=== PATIENT | male | born 1975 | race Caucasian/White ===

== ENCOUNTER 2018-07-20 07:33 | Emergency (ER) | payer MEDICARE, MEDICAID ==
[~2018-07-20] VITALS: Ht 182.9 cm; Wt 90.9 kg
[~2018-07-20 07:33] MED LIST: CLOT15CR5 TOP; COMP-18; DYR50C PO; FURO-150 PO; LACT10SO6 PO; MECL-111 PO; NORCO10T PO; OMEP20CA10 PO; PANT40TA39 PO; POTA10TA36 PO
[2018-07-20 07:36] VITALS: BP 129/72
--- NOTE | 2018-07-20 07:55 | NUR ---
dr. bird at bedside.
== END 2018-07-20 08:05 | disposition home or self-care (01) ==
LOC: ER 07:34
DX: H53.8 Other visual disturbances (principal); F12.90 Cannabis use, unspecified, uncomplicated; G89.29 Other chronic pain; Z98.890 Other specified postprocedural states; Z79.899 Other long term (current) drug therapy
CPT/HCPCS: 99284

== ENCOUNTER 2018-08-05 06:26 | Inpatient (IN) | payer MEDICARE, MEDICAID ==
[~2018-08-05] VITALS: Ht 182.9 cm; Wt 84.2 kg
[2018-08-05] VITALS (21 sets, daily range): BP systolic 100–136; BP diastolic 56–90
[2018-08-05] MEDS ORDERED: LIDOcaine Viscous 15ml cup PO ONE (06:40)
[2018-08-05] MEDS ORDERED: mag hydrox/Alum hydrox/simeth 30ml oral suspension PO ONE (06:40)
--- NOTE | 2018-08-05 07:05 | NUR ---
called ab to see if they were going to draw pt. stated they will be here shortly. will continue to monitor. Addendum: 08/05/18 at 0705 by [email or web address] stacie bansal
[2018-08-05 07:29] LABS: BASOPHILS % (AUTO) 1.3 % (0-1); EOSINOPHILS % (AUTO) 0.6 % (0-6); HEMATOCRIT 29.3 % (42.0-52.0); HEMOGLOBIN 9.3 g/dl (14.0-17.9); LYMPHOCYTES # (AUTO) 0.1 X10'3 (1.1-4.8); LYMPHOCYTES % (AUTO) 6.8 % (21-51); MEAN CORPUSCULAR HEMOGLOBIN 27.1 PG (27.0-31.0); MEAN CORPUSCULAR HGB CONC 31.7 g/dL (33.0-36.5); MEAN CORPUSCULAR VOLUME 85.3 FL (78-98); MEAN PLATELET VOLUME 8.6 FL (7.4-10.4); MONOCYTES # (AUTO) 0.2 X10'3 (0-0.9); MONOCYTES % (AUTO) 14.4 % (2-12); NEUTROPHILS # (AUTO) 0.9 X10'3 (1.8-7.7); NEUTROPHILS % (AUTO) 76.9 % (42-75); PLATELET COUNT 52 X10'3 (140-440); RED BLOOD COUNT 3.43 X10'6 (4.70-6.10); RED CELL DISTRIBUTION WIDTH 20.2 % (11.5-14.5); WHITE BLOOD COUNT 1.2 X10'3 (4.5-11.0)
[2018-08-05 07:34] LABS: CLARITY,URINE CLOUDY (Clear); COLOR,URINE AMBER (Yellow); GLUCOSE, URINE 100 mg/dl (Neg); KETONES,URINE 15 mg/dl (Neg); LEUKOCYTE ESTERASE ,URINE TRACE (Neg); NITRITES, URINE POSITIVE (Neg); OCCULT BLOOD,URINE TRACE-INTACT (Neg); PROTEIN,URINE 100 mg/dl (Neg)
[2018-08-05 07:40] LABS: HYALINE CASTS >30 /LPF (NEGATIVE); UA COLLECTION TYPE CLN CATCH MIDSTREAM
[2018-08-05 07:41] LABS: BACTERIA,URINE 2+ /HPF (Neg)
[2018-08-05 07:42] LABS: MUCUS STRANDS MODERATE /LPF (Neg); RBC,URINE 0-2 /HPF (0-2); SQUAMOUS EPITHELIAL CELL,UR FEW /LPF (FEW)
[2018-08-05 07:43] LABS: ALANINE AMINOTRANSFERASE 27 U/L (12-78); ALBUMIN 2.4 G/DL (3.4-5.0); ALKALINE PHOSPHATASE 112 IU/L (46-116); ANION GAP 10 (8-16); ASPARTATE AMINO TRANSFERASE 57 U/L (10-37); BILIRUBIN,TOTAL 3.7 MG/DL (0.1-1.0); BLOOD UREA NITROGEN 14 MG/DL (7-18); BUN/CREATININE RATIO 11.7 (5.4-32.0); CHLORIDE 104 MMOL/L (99-107); GLUCOSE 100 MG/DL (70-104); LIPASE 147 U/L (73-393); POTASSIUM 3.7 MMOL/L (3.5-5.1); SODIUM 136 MMOL/L (135-145); TOTAL CARBON DIOXIDE 21.8 MMOL/L (24-32); eGFR 66 ML/MIN
[2018-08-05 07:45] LABS: ALBUMIN/GLOBULIN RATIO 0.6 (1.1-1.5); TOTAL PROTEIN 6.2 G/DL (6.4-8.2)
[2018-08-05] MEDS ORDERED: normal saline 1000ML IV soln IVB ONE ×2 (07:50→08:50)
[2018-08-05] MEDS ORDERED: CefTRIAXone 2gm/D5W 50ml 50 ML IV ONE (07:50)
[2018-08-05] MEDS ORDERED: ketorolac trometh. 30mg/ml inj. IV ONE (07:50)
[2018-08-05] MEDS ORDERED: pantoprazole 40 MG vial IV SCH ×2 (08:00→14:21)
[2018-08-05] MEDS ORDERED: folic acid inj. 2 MG, thiamine inj. 100 MG, MVI, adult No.4 with vit. K 10 ML in dextro... IV SCH ×4 (08:00)
[2018-08-05] MEDS ORDERED: piperacillin/tazo 3.375gm/50ml 50 ML IV ONE (08:50)
[2018-08-05] MEDS ORDERED: ondansetron/PF 4mg/2ml inj IV ONE (08:50)
[2018-08-05 09:15] LABS: INR 1.4 INR
[2018-08-05] MEDS: morphine 4 MG/ML inj SYRINge IV PRN ×2 (09:20→10:15)
[2018-08-05 10:49] LABS: PLATELET ESTIMATE DECREASED; TOTAL CELLS COUNTED 100
[2018-08-05 10:50] LABS: ANISOCYTOSIS 3+
[2018-08-05 10:53] LABS: SMUDGE CELLS FEW
[2018-08-05 10:54] LABS: POLYCHROMASIA 1+
[2018-08-05 10:55] LABS: HYPOCHROMASIA 1+; ROULEAUX 1+
[2018-08-05] MEDS ORDERED: clindamycin phosphate 150mg/ml inj. ONE ×2 (11:02→13:31)
[2018-08-05] MEDS ORDERED: gentamicin 40 MG/1 ML inj ONE ×2 (11:02→13:31)
[2018-08-05] MEDS ORDERED: haloperidol 5mg tablet PO PRN (12:10)
[2018-08-05] MEDS ORDERED: magnesium 4gm in 100ml NS 100 ML IV PRN (12:10)
[2018-08-05] MEDS ORDERED: sodium phosphate inj. 30 MMOL in dextrose 5%-water 250 ML IV PRN (12:10)
[2018-08-05] MEDS ORDERED: haloperidol lactate 5mg/ml inj IM PRN (12:10)
[2018-08-05] MEDS ORDERED: Neutra Phos packet PO PRN (12:10)
[2018-08-05] MEDS ORDERED: morphine 4 MG/ML inj SYRINge IV PRN ×3 (12:10→14:45)
[2018-08-05] MEDS ORDERED: LORazepam 1 MG tablet PO PRN (12:10)
[2018-08-05] MEDS ORDERED: potassium Cl 20 mEq SR tablet PO PRN (12:10)
[2018-08-05] MEDS ORDERED: dextrose 50%-water 50ml dispensing syringe IV PRN (12:10)
[2018-08-05] MEDS ORDERED: magnesium 2GM in 50ml NS 50 ML IV PRN (12:10)
[2018-08-05] MEDS ORDERED: sodium phosphate inj. 15 MMOL in dextrose 5%-water 150 ML IV PRN (12:10)
[2018-08-05] MEDS ORDERED: ondansetron/PF 4mg/2ml inj IV PRN ×2 (12:10→14:45)
[2018-08-05] MEDS ORDERED: magnesium Cl slow-release 64mg tablet PO PRN (12:10)
[2018-08-05] MEDS ORDERED: LORazepam 2 mg/ml vial IV PRN (12:10)
[2018-08-05] MEDS ORDERED: acetaminophen 325mg tablet PO PRN (12:10)
[2018-08-05] MEDS ORDERED: RIFA550T PO (12:39)
[2018-08-05] MEDS ORDERED: POTA10TA15 PO (12:39)
[2018-08-05] MEDS ORDERED: RANI150T8 PO (12:39)
[2018-08-05] MEDS ORDERED: LACT10SO6 PO (12:43)
[2018-08-05] MEDS ORDERED: sevoflurane 250ml liquid IH ONE (14:11)
[2018-08-05] MEDS ORDERED: midazolam 2 mg/2 ml injection ONE (14:13)
[2018-08-05] MEDS ORDERED: fentaNYL /PF 50mcg/ml 5ml ampule ONE (14:13)
--- NOTE | 2018-08-05 14:13 | NUR ---
Pt to OR with Anesthesiologist, ORTHODONTIST [employer] OWNER x2 and Surgeon. Pt's family called and updated, as the patient requested. Pt stable at this time, RA with high sats, SR to low ST, stable bp, afebrile. Pt received one pack of platelets with no s/s of reaction. Pt neurologically intact; morphine 4m given x1. Addendum: 08/05/18 at 1756 by Eleni Cardenas RN Chlorahexadine bath given (prior ones done in ED.)
[2018-08-05] MEDS ORDERED: cefotetan 2gm/isosm dext IVPB 50 ML IV ONE (14:17)
[2018-08-05] MEDS: K, MAG and/or Phos replacement - Verify level? MC SCH (14:17)
[2018-08-05] MEDS: normal saline 1000ml 1,000 ML IV SCH (14:17)
[2018-08-05] MEDS ORDERED: ringers solution, lacted 1,000 ML IV SCH (14:45)
[2018-08-05] MEDS ORDERED: proCHLORperazine 10 MG/2 ml inj IV PRN (14:45)
[2018-08-05] MEDS ORDERED: meperidine/PF 25mg/ml syringe IV PRN ×2 (14:45)
[2018-08-05] MEDS ORDERED: sugammadex 200mg/2ml injection IV ONE (15:47)
[2018-08-05] MEDS ORDERED: rocuronium 10mg/ml inj IV ONE ×2 (15:56)
[2018-08-05] MEDS ORDERED: propofol inj 20 ML IV ONE (15:56)
--- NOTE | 2018-08-05 15:57 | NUR ---
Received from OR via BED, accompanied by Anesthesiologist DR WHITMAN and report given by Anesthesiologist. PT PAINFUL, WILLIS'S, LARGE GAUZE DRSG COVERING ABDOMEN CDI, FLOWER W/S/S DRAINAGE, MCCLURE CATHETER W/DARK YELLOW URINE TO GRAVITY DRAINAGE. 4 MG MORPHINE GIVEN FOR PAIN, CXR OBTAINED, DR WHITMAN HERE TO SEE X RAY, OK TO USE LINE. Addendum: 08/05/18 at 1653 by Meri Mendoza RN Amended: Links added.
[2018-08-05] MEDS: meperidine/PF 25mg/ml syringe IV PRN ×2 (16:29→17:08)
--- NOTE | 2018-08-05 17:27 | NUR ---
Report called to receiving nurse. Transferred via BED ON AND , NO Belongings, RECEIVING RN AT BEDSIDE TO RECEIVE PT, PT PAIN IMPROVED AFTER DEMEROL 25 MG GIVEN IN PACU. Special Issues communicated to receiving nurse. ERMIAS HANEY. Addendum: 08/05/18 at 1741 by Meri Mendoza RN Amended: Links added.
[2018-08-05] MEDS: piperacillin/tazo 3.375gm/50ml 50 ML IV SCH (17:32)
[2018-08-05] MEDS: vancomycin inj 1,250 MG in normal saline 250ml IV soln 250 ML IV SCH (17:32)
[2018-08-05] MEDS: pantoprazole 40MG/NS 100ML BAG 100 ML IV SCH ×2 (17:32→21:23)
--- NOTE | 2018-08-05 17:56 | NUR ---
Pt arrives in ICU from recovery. Pt very lethargic, snoring, wakes with verbal stimulation, (pt received demerol x2 and morphine in recovery,) sats 93 on 2L NC. Pt in ST (116) with a stable bp. Afebrile at this time. Vanc and zosyn started. Protonix gtt started. All gtts via new RIJ. Pt has a daley with minimal, dark urine output.
--- NOTE | 2018-08-05 18:30 | NUR ---
Patient in room ICU 2045. I have received report from Eleni HANEY and had the opportunity to ask questions and assume patient care.
[2018-08-05] MEDS ORDERED: albumin (Human) 5% 250ml 250 ML IV ONE ×2 (18:35)
--- NOTE | 2018-08-05 19:30 | NUR ---
Pt is awake, alert, and oriented. He does doze off easily, but also wakes up easily. HR is currently ST @ 114, BP 112/64, RR 12, O2 Sats 93% on 2L NC. Pt is complaining of 10/10 pain on abdominal incision. Will look into provided pain medication. Pt asked for ice chips, which were given as ordered by Dr. Draper. Pt's right foot is CHARLENE wrapped and splinted for a break he received prior to coming into the hospital. Pt is jaundiced and has some occasional bruising, with a cut to his forehead.
[2018-08-05] MEDS: docusate sod 100mg capsule PO SCH (20:00)
[2018-08-05] MEDS: HYDROmorphone 1 mg/ml syringe IV PRN (20:54)
[2018-08-06] VITALS (24 sets, daily range): BP systolic 95–156; BP diastolic 42–85
[2018-08-06] MEDS: vancomycin inj 1,250 MG in normal saline 250ml IV soln 250 ML IV SCH ×3 (00:13→16:11)
[2018-08-06] MEDS: normal saline 1000ml 1,000 ML IV SCH ×2 (01:30→15:40)
[2018-08-06] MEDS: piperacillin/tazo 3.375gm/50ml 50 ML IV SCH ×3 (02:29→15:34)
[2018-08-06] MEDS: pantoprazole 40MG/NS 100ML BAG 100 ML IV SCH ×5 (02:31→21:49)
[2018-08-06 03:23] LABS: BASOPHILS % (AUTO) 0.5 % (0-1); HEMATOCRIT 25.2 % (42.0-52.0); HEMOGLOBIN 8.1 g/dl (14.0-17.9); LYMPHOCYTES # (AUTO) 0.2 X10'3 (1.1-4.8); LYMPHOCYTES % (AUTO) 5.3 % (21-51); MEAN CORPUSCULAR HEMOGLOBIN 27.5 PG (27.0-31.0); MEAN CORPUSCULAR HGB CONC 32.1 g/dL (33.0-36.5); MEAN CORPUSCULAR VOLUME 85.8 FL (78-98); MEAN PLATELET VOLUME 8.4 FL (7.4-10.4); MONOCYTES # (AUTO) 0.5 X10'3 (0-0.9); MONOCYTES % (AUTO) 13.4 % (2-12); NEUTROPHILS % (AUTO) 79.8 % (42-75); PLATELET COUNT 53 X10'3 (140-440); RED BLOOD COUNT 2.94 X10'6 (4.70-6.10); RED CELL DISTRIBUTION WIDTH 20.4 % (11.5-14.5); WHITE BLOOD COUNT 3.8 X10'3 (4.5-11.0)
[2018-08-06 03:29] LABS: INR 1.8 INR; PARTIAL THROMBOPLASTIN TIME 34 SECONDS (22-32)
[2018-08-06 03:40] LABS: ALANINE AMINOTRANSFERASE 20 U/L (12-78); ALBUMIN 2.5 G/DL (3.4-5.0); ALBUMIN/GLOBULIN RATIO 0.8 (1.1-1.5); ALKALINE PHOSPHATASE 69 IU/L (46-116); ANION GAP 11 (8-16); ASPARTATE AMINO TRANSFERASE 40 U/L (10-37); BILIRUBIN,TOTAL 3.2 MG/DL (0.1-1.0); BLOOD UREA NITROGEN 21 MG/DL (7-18); CALCIUM 7.4 MG/DL (8.5-10.1); CHLORIDE 106 MMOL/L (99-107); CREATININE 1.05 MG/DL (0.60-1.10); GLUCOSE 88 MG/DL (70-104); MAGNESIUM 1.3 MG/DL (1.5-2.4); PHOSPHORUS 4.3 MG/DL (2.3-4.5); POTASSIUM 4.3 MMOL/L (3.5-5.1); SODIUM 138 MMOL/L (135-145); TOTAL CARBON DIOXIDE 20.7 MMOL/L (24-32); TOTAL PROTEIN 5.7 G/DL (6.4-8.2); eGFR 77 ML/MIN
[2018-08-06 03:59] LABS: LARGE PLATELETS FEW; PLATELET ESTIMATE DECREASED
[2018-08-06 04:00] LABS: ANISOCYTOSIS 3+; POLYCHROMASIA FEW
[2018-08-06] MEDS: HYDROmorphone 1 mg/ml syringe IV PRN ×2 (05:17→11:55)
[2018-08-06] MEDS: docusate sod 100mg capsule PO SCH ×2 (08:00→20:00)
[2018-08-06] MEDS: K, MAG and/or Phos replacement - Verify level? MC SCH (08:00)
[2018-08-06] MEDS: folic acid inj. 2 MG, thiamine inj. 100 MG, MVI, adult No.4 with vit. K 10 ML in dextro... IV SCH ×4 (08:08)
[2018-08-06] MEDS: rifaximin 550mg tablet PO SCH ×2 (11:00→20:00)
[2018-08-06] MEDS: lactulose 20gm/30ml cup PO SCH (11:00)
--- NOTE | 2018-08-06 11:30 | NUR ---
Pt sitting up in chair john well "states abd pain feels better with splint around abd and being up " Pt with assist did IS and flutter valve Weak cough noted 02 3l/min via n/c Lungs clear decreased in bases Abd drsg dry and intact FLOWER drain patent daley with dk marissa to brown color urine splint to left foot John sips of ICE but c/o wants more Repeat he wants to see surg Dr. pulido has not been by Addendum: 08/06/18 at 1353 by Soledad Osborn RN splint on right foot
--- NOTE | 2018-08-06 11:32 | NUR ---
Malnutrition consult re: "patient is homeless, lost 20 lbs in last month." Patient presented with acute abdominal pain and viscus perforation. Per H&P pain was worse with eating. He is currently NPO and s/p exploratory lap and repair of duodenal ulcer on 08/05/18. Current EtOH, h/o cirrhosis with ascites and variceal bleed. Weight expected to fluctuate with ascites d/t fluid retention. Per documented weight history patient's stated weight on 07/20/18 was 189 lbs, current [facility] states 207 lbs, recently wt increased by 18 lbs. Pt does have some mild LLE 2+ edema. Weight history shows UBW between 80 and 90 kg. No current PO intake to assess. Will continue to follow and monitor for diet advancement, PO intake, and weight. Recommend: 1. Advance diet as medically indicated to low sodium 2. Monitor need for ONS when diet is advanced 3. Wt per rx Addendum: 08/06/18 at [address] Amended: Links added.
--- NOTE | 2018-08-06 15:08 | NUR ---
Patient in room ICU 2045. I have received report from MEDINA Krueger and had the opportunity to ask questions and assume patient care.
[2018-08-06] MEDS ORDERED: VANCOMYCIN LEVEL IV ONE (15:30)
[2018-08-06] MEDS: HYDROmorphone/NS 1 mg/ml CADD 50 ML IV SCH ×4 (16:58→23:00)
--- NOTE | 2018-08-06 17:47 | NUR ---
Dr. Kaur arrived on unit and assessed pt, updated on pt condition. Diluadid ED MANAGER order received and given. educated pt on PCU usage, questions answered. Packing removed on abd incision, dry gauze and ABD pad applied. incision with stables c/d/i. no drainage noted. FLOWER drain to right abd with serous drainage. pt is NPO except ice and popsicles. pt tolerated well without nausea or vomiting.
--- NOTE | 2018-08-06 18:20 | NUR ---
Patient in room ICU 2045. I have received report and had the opportunity to ask questions and assume patient care.
--- NOTE | 2018-08-06 18:22 | NUR ---
Problems reprioritized. Patient report given, questions answered & plan of care reviewed with MEDINA Klein.
[2018-08-07] VITALS (18 sets, daily range): BP systolic 98–135; BP diastolic 29–88
[2018-08-07] MEDS: piperacillin/tazo 3.375gm/50ml 50 ML IV SCH ×3 (00:39→16:35)
[2018-08-07] MEDS: vancomycin inj 1,250 MG in normal saline 250ml IV soln 250 ML IV SCH (00:39)
[2018-08-07] MEDS: HYDROmorphone/NS 1 mg/ml CADD 50 ML IV SCH ×12 (01:00→22:41)
[2018-08-07] MEDS: pantoprazole 40MG/NS 100ML BAG 100 ML IV SCH ×5 (01:15→21:20)
[2018-08-07 02:30] LABS: BASOPHILS % (AUTO) 0.9 % (0-1); HEMOGLOBIN 7.5 g/dl (14.0-17.9); LYMPHOCYTES # (AUTO) 0.2 X10'3 (1.1-4.8); LYMPHOCYTES % (AUTO) 6.9 % (21-51); MEAN CORPUSCULAR HEMOGLOBIN 27.5 PG (27.0-31.0); MEAN CORPUSCULAR HGB CONC 32.5 g/dL (33.0-36.5); MEAN CORPUSCULAR VOLUME 84.6 FL (78-98); MEAN PLATELET VOLUME 7.9 FL (7.4-10.4); MONOCYTES # (AUTO) 0.4 X10'3 (0-0.9); MONOCYTES % (AUTO) 17.3 % (2-12); NEUTROPHILS # (AUTO) 1.8 X10'3 (1.8-7.7); NEUTROPHILS % (AUTO) 73.9 % (42-75); RED BLOOD COUNT 2.72 X10'6 (4.70-6.10); WHITE BLOOD COUNT 2.4 X10'3 (4.5-11.0)
[2018-08-07 02:44] LABS: ALANINE AMINOTRANSFERASE 16 U/L (12-78); ALBUMIN/GLOBULIN RATIO 0.6 (1.1-1.5); ALKALINE PHOSPHATASE 61 IU/L (46-116); ANION GAP 7 (8-16); ASPARTATE AMINO TRANSFERASE 33 U/L (10-37); BILIRUBIN,TOTAL 2.8 MG/DL (0.1-1.0); BLOOD UREA NITROGEN 15 MG/DL (7-18); BUN/CREATININE RATIO 21.1 (5.4-32.0); CALCIUM 7.6 MG/DL (8.5-10.1); CHLORIDE 104 MMOL/L (99-107); CREATININE 0.71 MG/DL (0.60-1.10); GLUCOSE 106 MG/DL (70-104); INR 1.6 INR; MAGNESIUM 1.9 MG/DL (1.5-2.4); PARTIAL THROMBOPLASTIN TIME 39 SECONDS (22-32); PHOSPHORUS 1.5 MG/DL (2.3-4.5); POTASSIUM 3.4 MMOL/L (3.5-5.1); SODIUM 135 MMOL/L (135-145); TOTAL CARBON DIOXIDE 23.6 MMOL/L (24-32); TOTAL PROTEIN 5.2 G/DL (6.4-8.2); eGFR > 90 ML/MIN
[2018-08-07 02:55] LABS: PLATELET COUNT 45 X10'3 (140-440)
[2018-08-07] MEDS ORDERED: potassium Cl 40MEQ/250ML bag 250 ML IV PRN ×2 (03:35)
[2018-08-07] MEDS: normal saline 1000ml 1,000 ML IV SCH ×3 (04:10→20:06)
--- NOTE | 2018-08-07 04:30 | NUR ---
pt refused to have his dressing changed x 3. pt stated he is "comfortable an wants to sleep". pt educated on the importance of dressing changes. dressing is dry and intact, will continue to monitor.
--- NOTE | 2018-08-07 06:15 | NUR ---
Patient in room ICU 2045. I have received report from MEDINA Klein and had the opportunity to ask questions and assume patient care.
[2018-08-07 06:22] LABS: ANISOCYTOSIS 2+; MICROCYTOSIS 1+; PLATELET ESTIMATE DECREASED; TOTAL CELLS COUNTED 100
[2018-08-07 06:23] LABS: HYPOCHROMASIA 1+; POLYCHROMASIA FEW; SCHISTOCYTES FEW; TARGET CELLS FEW
[2018-08-07] MEDS: rifaximin 550mg tablet PO SCH ×2 (08:00→20:00)
[2018-08-07] MEDS: lactulose 20gm/30ml cup PO SCH (08:00)
[2018-08-07] MEDS: docusate sod 100mg capsule PO SCH ×2 (08:00→20:00)
[2018-08-07] MEDS: K, MAG and/or Phos replacement - Verify level? MC SCH (08:00)
[2018-08-07] MEDS: folic acid inj. 2 MG, thiamine inj. 100 MG, MVI, adult No.4 with vit. K 10 ML in dextro... IV SCH ×4 (08:04)
[2018-08-07] MEDS ORDERED: metoclopramide 5 mg/ml inj IV PRN (12:35)
[2018-08-07] MEDS: methylnaltrexone br 12mg/0.6ml inj***SubQ only SQ SCH (14:45)
--- NOTE | 2018-08-07 16:31 | NUR ---
Called report to MEDINA Arriaga. Pt transferred to surgical unit rm 346A via wheelchair with all belongings. Accompanied by RN and PCT. Grubbs removed prior to transfer. PIV attempted x3 by 3 different RNs without success. Central line left in. Pt alert, oriented and stable for transfer. Ambulated to new bed with assistance.
--- NOTE | 2018-08-07 16:39 | NUR ---
RECD PT FROM ICU, PT ALERT AND ORIENTED. VSS. PT SETTLED IN BED, ALL BELONGINGS AT BEDSIDE.
[2018-08-07] MEDS ORDERED: POTASSIUM 40MEQ/500ML NS ***PERIPHERAL LINE REPLACE IV PRN (17:00)
--- NOTE | 2018-08-07 17:17 | NUR ---
AGREE WITH PHYSICAL ASSESSMENT DONE IN ICU EXCEPT FOR DOCUMENTED CHANGES MADE Addendum: 08/07/18 at 1718 by Yahaira Caputo RN Amended: Links added.
--- NOTE | 2018-08-07 18:16 | NUR ---
Problems reprioritized. Patient report given, questions answered & plan of care reviewed with OZZIE HANEY.
--- NOTE | 2018-08-07 18:18 | NUR ---
Problems reprioritized. Patient report given, questions answered & plan of care reviewed with ZAID HANEY.
--- NOTE | 2018-08-07 18:36 | NUR ---
Patient in room [facility] 346. I have received report from Corina HANEY and had the opportunity to ask questions and assume patient care.
[2018-08-07] MEDS: ondansetron/PF 4mg/2ml inj IV PRN (20:14)
[2018-08-07] MEDS: magnesium hydroxide 30ml (MOM) UD suspension PO PRN (22:33)
[2018-08-08] VITALS: BP 111/72
[2018-08-08] MEDS: piperacillin/tazo 3.375gm/50ml 50 ML IV SCH ×3 (00:35→16:29)
[2018-08-08] MEDS: HYDROmorphone/NS 1 mg/ml CADD 50 ML IV SCH ×12 (00:39→23:00)
[2018-08-08] MEDS: pantoprazole 40MG/NS 100ML BAG 100 ML IV SCH ×5 (01:45→21:26)
--- NOTE | 2018-08-08 03:34 | NUR ---
flutuates as patient does not like to keep nc in nares Addendum: 08/08/18 at 0335 by Maia Streeter RN Amended: Links added.
[2018-08-08 05:33] LABS: INR 1.5 INR
[2018-08-08 05:51] LABS: HEMATOCRIT 24.2 % (42.0-52.0); HEMOGLOBIN 7.8 g/dl (14.0-17.9); LYMPHOCYTES # (AUTO) 0.2 X10'3 (1.1-4.8); MONOCYTES # (AUTO) 0.5 X10'3 (0-0.9)
[2018-08-08 05:54] LABS: BASOPHILS % (AUTO) 0.6 % (0-1); EOSINOPHILS % (AUTO) 0.5 % (0-6); LYMPHOCYTES % (AUTO) 8.1 % (21-51); MEAN CORPUSCULAR HGB CONC 32.4 g/dL (33.0-36.5); MEAN CORPUSCULAR VOLUME 83.3 FL (78-98); MEAN PLATELET VOLUME 8.3 FL (7.4-10.4); MONOCYTES % (AUTO) 20.9 % (2-12); NEUTROPHILS # (AUTO) 1.6 X10'3 (1.8-7.7); NEUTROPHILS % (AUTO) 69.9 % (42-75); PLATELET COUNT 51 X10'3 (140-440); WHITE BLOOD COUNT 2.2 X10'3 (4.5-11.0)
[2018-08-08 05:55] LABS: ALANINE AMINOTRANSFERASE 14 U/L (12-78); ALBUMIN 1.9 G/DL (3.4-5.0); ALBUMIN/GLOBULIN RATIO 0.6 (1.1-1.5); ALKALINE PHOSPHATASE 65 IU/L (46-116); ANION GAP 7 (8-16); ASPARTATE AMINO TRANSFERASE 35 U/L (10-37); BILIRUBIN,TOTAL 3.4 MG/DL (0.1-1.0); BLOOD UREA NITROGEN 9 MG/DL (7-18); BUN/CREATININE RATIO 12.3 (5.4-32.0); CALCIUM 7.6 MG/DL (8.5-10.1); CHLORIDE 104 MMOL/L (99-107); CREATININE 0.73 MG/DL (0.60-1.10); GLUCOSE 94 MG/DL (70-104); MAGNESIUM 1.6 MG/DL (1.5-2.4); PHOSPHORUS 1.7 MG/DL (2.3-4.5); POTASSIUM 3.2 MMOL/L (3.5-5.1); SODIUM 137 MMOL/L (135-145); TOTAL CARBON DIOXIDE 25.9 MMOL/L (24-32); TOTAL PROTEIN 5.1 G/DL (6.4-8.2); eGFR > 90 ML/MIN
--- NOTE | 2018-08-08 06:57 | NUR ---
Problems reprioritized. Patient report given, questions answered & plan of care reviewed with Gina HANEY.
[2018-08-08] MEDS ORDERED: VANCOMYCIN LEVEL IV ONE (07:30)
[2018-08-08 08:00] VITALS: BP 117/70
[2018-08-08] MEDS: folic acid inj. 2 MG, thiamine inj. 100 MG, MVI, adult No.4 with vit. K 10 ML in dextro... IV SCH ×4 (08:00)
[2018-08-08] MEDS: rifaximin 550mg tablet PO SCH ×2 (08:00→20:18)
[2018-08-08] MEDS: lactulose 20gm/30ml cup PO SCH (08:00)
[2018-08-08] MEDS: K, MAG and/or Phos replacement - Verify level? MC SCH (08:00)
[2018-08-08 08:11] LABS: ANISOCYTOSIS 2+; PLATELET ESTIMATE DECREASED; TOTAL CELLS COUNTED 100
[2018-08-08 08:12] LABS: HYPOCHROMASIA 1+; MICROCYTOSIS 1+; POLYCHROMASIA FEW
[2018-08-08] MEDS: docusate sod 100mg capsule PO SCH ×2 (09:33→20:19)
--- NOTE | 2018-08-08 18:30 | NUR ---
Patient in room [facility] 346. I have received report from Gina HANEY and had the opportunity to ask questions and assume patient care. Patient resting eyes closed respirations even, woken to encourage eating dinner. Will continue to monitor.
[2018-08-08 19:00] VITALS: BP 106/70
[2018-08-08] MEDS: normal saline 1000ml 1,000 ML IV SCH (19:14)
--- NOTE | 2018-08-08 20:15 | NUR ---
Called Dr. Kaur to notify him that patient's FLOWER had 440 ml out in 2 hours, temperature of 101.5 and potassium of 3.2 and oral medication only available for both, asked if alternative route recommended. Received orders to treat with what is available and that the drainage is expected. Stated that RN can connect FLOWER tube drainage bag. Attempted, unable to find solution at this time. Will continue to monitor.
[2018-08-08] MEDS: potassium Cl 20 mEq SR tablet PO PRN (20:18)
[2018-08-08] MEDS: acetaminophen 325mg tablet PO PRN (20:19)
[2018-08-09] VITALS: BP 111/68
[2018-08-09] MEDS: piperacillin/tazo 3.375gm/50ml 50 ML IV SCH ×3 (00:07→16:22)
[2018-08-09] MEDS: HYDROmorphone/NS 1 mg/ml CADD 50 ML IV SCH ×6 (01:00→11:00)
[2018-08-09] MEDS: pantoprazole 40MG/NS 100ML BAG 100 ML IV SCH ×3 (03:22→11:00)
--- NOTE | 2018-08-09 06:52 | NUR ---
Problems reprioritized. Patient report given, questions answered & plan of care reviewed with Arti HANEY. Patient resting eyes closed respirations even, wakes with ease.
[2018-08-09 07:00] VITALS: BP 128/76
--- NOTE | 2018-08-09 07:00 | NUR ---
Patient in room [facility] 346. I have received report from Jannette and had the opportunity to ask questions and assume patient care. Addendum: 08/09/18 at 1016 by Arti Camp RN Amended: Links added.
[2018-08-09 07:26] LABS: NEUTROPHILS # (AUTO) 1.8 X10'3 (1.8-7.7)
[2018-08-09 07:28] LABS: BASOPHILS % (AUTO) 1.4 % (0-1); EOSINOPHILS % (AUTO) 0.6 % (0-6); HEMATOCRIT 26.7 % (42.0-52.0); HEMOGLOBIN 8.8 g/dl (14.0-17.9); LYMPHOCYTES # (AUTO) 0.4 X10'3 (1.1-4.8); LYMPHOCYTES % (AUTO) 12.4 % (21-51); MEAN CORPUSCULAR HEMOGLOBIN 27.5 PG (27.0-31.0); MEAN CORPUSCULAR HGB CONC 33.1 g/dL (33.0-36.5); MEAN CORPUSCULAR VOLUME 83.1 FL (78-98); MEAN PLATELET VOLUME 8.5 FL (7.4-10.4); MONOCYTES # (AUTO) 0.8 X10'3 (0-0.9); MONOCYTES % (AUTO) 25.5 % (2-12); NEUTROPHILS % (AUTO) 60.1 % (42-75); PLATELET COUNT 59 X10'3 (140-440); RED BLOOD COUNT 3.22 X10'6 (4.70-6.10); RED CELL DISTRIBUTION WIDTH 19.9 % (11.5-14.5)
[2018-08-09 07:34] LABS: ALANINE AMINOTRANSFERASE 17 U/L (12-78); ALKALINE PHOSPHATASE 76 IU/L (46-116); ANION GAP 8 (8-16); ASPARTATE AMINO TRANSFERASE 40 U/L (10-37); BILIRUBIN,TOTAL 4.4 MG/DL (0.1-1.0); BLOOD UREA NITROGEN 7 MG/DL (7-18); CALCIUM 7.6 MG/DL (8.5-10.1); CHLORIDE 101 MMOL/L (99-107); GLUCOSE 90 MG/DL (70-104); MAGNESIUM 1.5 MG/DL (1.5-2.4); POTASSIUM 3.4 MMOL/L (3.5-5.1); SODIUM 135 MMOL/L (135-145); TOTAL CARBON DIOXIDE 26.4 MMOL/L (24-32); eGFR > 90 ML/MIN
[2018-08-09 07:36] LABS: ALBUMIN/GLOBULIN RATIO 0.6 (1.1-1.5); INR 1.6 INR; PHOSPHORUS 2.3 MG/DL (2.3-4.5); TOTAL PROTEIN 5.5 G/DL (6.4-8.2)
[2018-08-09] MEDS: normal saline 1000ml 1,000 ML IV SCH (07:40)
[2018-08-09 07:52] LABS: ANISOCYTOSIS 2+; PLATELET ESTIMATE DECREASED; POLYCHROMASIA 1+
[2018-08-09] MEDS: rifaximin 550mg tablet PO SCH ×2 (07:52→20:03)
[2018-08-09] MEDS: folic acid 1mg tablet PO SCH (07:52)
[2018-08-09] MEDS: docusate sod 100mg capsule PO SCH ×2 (07:52→20:03)
[2018-08-09] MEDS: multivitamins, therapeutics tablet PO SCH (07:52)
[2018-08-09] MEDS: thiamine 100mg tablet PO SCH (07:52)
[2018-08-09] MEDS: lactulose 20gm/30ml cup PO SCH (07:53)
[2018-08-09] MEDS: potassium Cl 20 mEq SR tablet PO PRN ×3 (07:57→17:46)
[2018-08-09] MEDS: K, MAG and/or Phos replacement - Verify level? MC SCH (08:00)
[2018-08-09] MEDS: methylnaltrexone br 12mg/0.6ml inj***SubQ only SQ SCH (09:51)
[2018-08-09 11:55] VITALS: BP 116/78
[2018-08-09] MEDS ORDERED: NUT.TX.IMPAIRED DIGEST FXN (Ensure Clear) 237 ML PO SCH (13:00)
--- NOTE | 2018-08-09 13:19 | NUR ---
Unable to start PIV, called Alyssia PICC RN to attempt to gain access.
--- NOTE | 2018-08-09 14:13 | NUR ---
reassessment: Pt advanced to clear liquids s/p perforated duodenal ulcer repair. Abdominal pain w/ constipation present LBM 08/02 on colace, relistor, and MoM PRN last dose 08/07. Reglan PRN as well but not given yet. Ensure clears TIDWM added for additional protein needs post-op; notified. Receiving electrolyte replacement per protocol. FLOWER out 1425ml. On MVI/thiamin/folic for etoh hx. Will monitor for diet advancement and additional protein needs post-op. Recommend: 1. Advance diet as medically indicated to low residue 2. ensure clear TIDWM 3. Wt per rx Addendum: 08/09/18 at [address] Amended: Links added.
[2018-08-09] MEDS: HYDROcodone/acetaminophen 10/325mg tab PO PRN ×2 (16:22→21:55)
[2018-08-09] MEDS: fluconazole-Diflucan 200mg/NS 100 ML IV SCH (16:23)
[2018-08-09] MEDS: enoxaparin 40mg/0.4ml syringe SUBCUT SCH (16:31)
[2018-08-09] MEDS ORDERED: CADD PCA waste documentation MC SCH (16:50)
--- NOTE | 2018-08-09 17:43 | NUR ---
CVL dc'd , pt tolerated well.
--- NOTE | 2018-08-09 18:14 | NUR ---
Problems reprioritized. Patient report given, questions answered & plan of care reviewed with Farhana. Addendum: 08/09/18 at 1814 by Arti Camp RN Amended: Links added.
[2018-08-09] MEDS: HYDROmorphone 1 mg/ml syringe IV PRN (20:03)
[2018-08-09] MEDS: pantoprazole 40 MG vial IV SCH (20:03)
[2018-08-09 20:30] VITALS: BP 134/65
[2018-08-10] VITALS: BP 114/65
[2018-08-10] MEDS: HYDROmorphone 1 mg/ml syringe IV PRN ×4 (01:10→19:34)
[2018-08-10] MEDS: piperacillin/tazo 3.375gm/50ml 50 ML IV SCH ×3 (01:10→15:47)
[2018-08-10] MEDS: HYDROcodone/acetaminophen 10/325mg tab PO PRN (04:11)
[2018-08-10 05:04] LABS: BASOPHILS % (AUTO) 0.9 % (0-1); EOSINOPHILS % (AUTO) 0.9 % (0-6); HEMATOCRIT 24.5 % (42.0-52.0); HEMOGLOBIN 7.8 g/dl (14.0-17.9); LYMPHOCYTES # (AUTO) 0.3 X10'3 (1.1-4.8); LYMPHOCYTES % (AUTO) 13.1 % (21-51); MEAN CORPUSCULAR HEMOGLOBIN 26.2 PG (27.0-31.0); MEAN CORPUSCULAR HGB CONC 31.7 g/dL (33.0-36.5); MEAN CORPUSCULAR VOLUME 82.6 FL (78-98); MEAN PLATELET VOLUME 8.2 FL (7.4-10.4); MONOCYTES # (AUTO) 0.6 X10'3 (0-0.9); MONOCYTES % (AUTO) 25.4 % (2-12); NEUTROPHILS # (AUTO) 1.3 X10'3 (1.8-7.7); NEUTROPHILS % (AUTO) 59.7 % (42-75); RED BLOOD COUNT 2.97 X10'6 (4.70-6.10); RED CELL DISTRIBUTION WIDTH 19.4 % (11.5-14.5); WHITE BLOOD COUNT 2.2 X10'3 (4.5-11.0)
[2018-08-10 05:08] LABS: INR 1.6 INR
[2018-08-10 05:14] LABS: ALANINE AMINOTRANSFERASE 14 U/L (12-78); ALBUMIN 1.7 G/DL (3.4-5.0); ALBUMIN/GLOBULIN RATIO 0.5 (1.1-1.5); ALKALINE PHOSPHATASE 71 IU/L (46-116); ANION GAP 3 (8-16); ASPARTATE AMINO TRANSFERASE 36 U/L (10-37); BILIRUBIN,TOTAL 3.3 MG/DL (0.1-1.0); BLOOD UREA NITROGEN 6 MG/DL (7-18); BUN/CREATININE RATIO 7.6 (5.4-32.0); CALCIUM 7.4 MG/DL (8.5-10.1); CHLORIDE 103 MMOL/L (99-107); CREATININE 0.79 MG/DL (0.60-1.10); GLUCOSE 117 MG/DL (70-104); MAGNESIUM 1.5 MG/DL (1.5-2.4); PHOSPHORUS 2.3 MG/DL (2.3-4.5); POTASSIUM 3.6 MMOL/L (3.5-5.1); SODIUM 134 MMOL/L (135-145); TOTAL CARBON DIOXIDE 27.8 MMOL/L (24-32); TOTAL PROTEIN 4.9 G/DL (6.4-8.2); eGFR > 90 ML/MIN
--- NOTE | 2018-08-10 06:26 | NUR ---
Problems reprioritized. Patient report given, questions answered & plan of care reviewed with MEDINA Chawla.
[2018-08-10 06:28] LABS: PLATELET COUNT 41 X10'3 (140-440)
[2018-08-10 06:34] LABS: ANISOCYTOSIS 2+; NUCLEATED RED BLOOD CELLS 1 /100WBC (0-0); PLATELET ESTIMATE DECREASED; TOTAL CELLS COUNTED 100
[2018-08-10 06:35] LABS: HYPOCHROMASIA 2+
[2018-08-10] MEDS: enoxaparin 40mg/0.4ml syringe SUBCUT SCH (06:46)
--- NOTE | 2018-08-10 06:47 | NUR ---
PT'S PLATELETS ARE 41. HOSPITALIST NOTIFED. WILL HOLD UNTIL I SPEAK WITH AM HOSPITALIST
--- NOTE | 2018-08-10 06:52 | NUR ---
Patient in room [facility] 346. I have received report from HARLEEN HANEY and had the opportunity to ask questions and assume patient care.
[2018-08-10 07:00] VITALS: BP 125/82
[2018-08-10] MEDS: lactulose 20gm/30ml cup PO SCH (07:29)
[2018-08-10] MEDS: docusate sod 100mg capsule PO SCH ×2 (07:30→19:31)
[2018-08-10] MEDS: multivitamins, therapeutics tablet PO SCH (07:30)
[2018-08-10] MEDS: thiamine 100mg tablet PO SCH (07:31)
[2018-08-10] MEDS: folic acid 1mg tablet PO SCH (07:31)
[2018-08-10] MEDS: K, MAG and/or Phos replacement - Verify level? MC SCH (08:00)
[2018-08-10] MEDS: pantoprazole 40 MG vial IV SCH (08:30)
[2018-08-10] MEDS: rifaximin 550mg tablet PO SCH ×2 (08:30→19:32)
[2018-08-10] MEDS: fluconazole-Diflucan 200mg/NS 100 ML IV SCH (09:04)
--- NOTE | 2018-08-10 09:26 | NUR ---
PT IS SATTING AT 89% WHEN AT REST, I HAVE TO REMIND HIM TO TAKE A DEEP BREATH. HE IMMEDIATELY GOES UP TO 95%
[2018-08-10 11:00] VITALS: BP 133/77
--- NOTE | 2018-08-10 13:52 | NUR ---
I HAVE HAD SEVERAL CONVERSATIONS WITH THIS PT ABOUT HIS CARE. HE WANTS HIS FOOT CAST, I EXPLAINED THAT IT HAS BEEN SPLINTED AND THAT IS ENOUGH FOR THE METATARSAL FRACTURE. HE ALSO STATES HE WANTS A WHEEL CHAIR DUE TO HIS SURGERY OF THE ABD. I EXPLAINED THAT WE WANT HIM AMBULATING FOR [employer] MOTILITY AND THAT A WHEELCHAIR WILL HINDER HIS PROGRESS. HE VERBALIZES AN UNDERSTANDING. PT CONTINUES TO BE DISRUPTIVE. HE COMPLAINS ABOUT HIS CARE, BUT WHEN ASKED HE SAYS HE IS FINE. HE WANTS TO GO OUTSIDE FOR A WHILE AND THEN COME BACK. I EDUCATED HIM ON OUR POLICY OF NOT LEAVING THE FLOOR DURING ADMISSION.
--- NOTE | 2018-08-10 16:00 | NUR ---
DR VILLEGAS ROUNDED. LET HIM KNOW PT'S PLATELET COUNT IS 41. HE STATES HE'S AWARE
--- NOTE | 2018-08-10 18:13 | NUR ---
Problems reprioritized. Patient report given, questions answered & plan of care reviewed with BHARGAVI HANEY.
--- NOTE | 2018-08-10 18:31 | NUR ---
Patient in room [facility] 346. I have received report from MEDINA LOMAX and had the opportunity to ask questions and assume patient care. Addendum: 08/10/18 at 1832 by Mikki Multani RN Amended: Links added.
[2018-08-10] MEDS: pantoprazole 40mg Tablet.DR PO SCH (19:32)
[2018-08-10 20:00] VITALS: BP 129/63
[2018-08-10] MEDS: acetaminophen 325mg tablet PO PRN (20:34)
[2018-08-10] MEDS: ondansetron/PF 4mg/2ml inj IV PRN (21:27)
[2018-08-10 23:30] VITALS: BP 134/70
[2018-08-11] MEDS: piperacillin/tazo 3.375gm/50ml 50 ML IV SCH ×3 (00:31→17:23)
[2018-08-11] MEDS: HYDROmorphone 1 mg/ml syringe IV PRN ×4 (00:31→20:45)
[2018-08-11] MEDS: HYDROcodone/acetaminophen 10/325mg tab PO PRN ×2 (03:23→15:03)
[2018-08-11] MEDS: mag hydrox/Alum hydrox/simeth 30ml oral suspension PO PRN (03:38)
--- NOTE | 2018-08-11 06:30 | NUR ---
Patient in room [facility] 346. I have received report from Deepthi Adler RN and had the opportunity to ask questions and assume patient care.
--- NOTE | 2018-08-11 06:51 | NUR ---
Problems reprioritized. Patient report given, questions answered & plan of care reviewed with aj cowan. pt in no acute distress, c/o abd. pain most of the time and pain medications administered Addendum: 08/11/18 at 0652 by Mikki Multani RN Amended: Links added.
[2018-08-11 06:58] LABS: BASOPHILS % (AUTO) 0.7 % (0-1); EOSINOPHILS % (AUTO) 0.6 % (0-6); HEMATOCRIT 24.8 % (42.0-52.0); HEMOGLOBIN 8.1 g/dl (14.0-17.9); LYMPHOCYTES # (AUTO) 0.2 X10'3 (1.1-4.8); LYMPHOCYTES % (AUTO) 8.1 % (21-51); MEAN CORPUSCULAR HEMOGLOBIN 26.5 PG (27.0-31.0); MEAN CORPUSCULAR HGB CONC 32.5 g/dL (33.0-36.5); MEAN CORPUSCULAR VOLUME 81.6 FL (78-98); MEAN PLATELET VOLUME 8.9 FL (7.4-10.4); MONOCYTES # (AUTO) 0.4 X10'3 (0-0.9); MONOCYTES % (AUTO) 14.1 % (2-12); NEUTROPHILS # (AUTO) 1.9 X10'3 (1.8-7.7); NEUTROPHILS % (AUTO) 76.5 % (42-75); RED BLOOD COUNT 3.04 X10'6 (4.70-6.10); RED CELL DISTRIBUTION WIDTH 19.9 % (11.5-14.5); WHITE BLOOD COUNT 2.5 X10'3 (4.5-11.0)
[2018-08-11 07:06] LABS: PLATELET COUNT 48 X10'3 (140-440)
[2018-08-11 07:19] LABS: INR 1.5 INR
[2018-08-11 07:21] LABS: ALANINE AMINOTRANSFERASE 12 U/L (12-78); ALBUMIN 1.7 G/DL (3.4-5.0); ALBUMIN/GLOBULIN RATIO 0.5 (1.1-1.5); ALKALINE PHOSPHATASE 89 IU/L (46-116); ANION GAP 5 (8-16); ASPARTATE AMINO TRANSFERASE 34 U/L (10-37); BILIRUBIN,TOTAL 2.7 MG/DL (0.1-1.0); BLOOD UREA NITROGEN 7 MG/DL (7-18); BUN/CREATININE RATIO 9.3 (5.4-32.0); CALCIUM 7.8 MG/DL (8.5-10.1); CHLORIDE 103 MMOL/L (99-107); CREATININE 0.75 MG/DL (0.60-1.10); GLUCOSE 124 MG/DL (70-104); MAGNESIUM 1.7 MG/DL (1.5-2.4); POTASSIUM 3.6 MMOL/L (3.5-5.1); SODIUM 135 MMOL/L (135-145); TOTAL PROTEIN 5.1 G/DL (6.4-8.2); eGFR > 90 ML/MIN
[2018-08-11 08:00] VITALS: BP 115/67
[2018-08-11] MEDS: enoxaparin 40mg/0.4ml syringe SUBCUT SCH (08:00)
[2018-08-11] MEDS: methylnaltrexone br 12mg/0.6ml inj***SubQ only SQ SCH (08:00)
[2018-08-11] MEDS ORDERED: fluconazole/NS 400mg/200ml bag 200 ML IV SCH (08:00)
[2018-08-11] MEDS: K, MAG and/or Phos replacement - Verify level? MC SCH (08:00)
[2018-08-11] MEDS: pantoprazole 40mg Tablet.DR PO SCH ×2 (08:45→20:46)
[2018-08-11] MEDS: rifaximin 550mg tablet PO SCH ×2 (08:45→20:46)
[2018-08-11] MEDS: folic acid 1mg tablet PO SCH (08:46)
[2018-08-11] MEDS: lactulose 20gm/30ml cup PO SCH (08:46)
[2018-08-11] MEDS: thiamine 100mg tablet PO SCH (08:46)
[2018-08-11] MEDS: docusate sod 100mg capsule PO SCH ×2 (08:46→20:45)
[2018-08-11] MEDS: multivitamins, therapeutics tablet PO SCH (08:46)
[2018-08-11] MEDS: fluconazole 100mg tablet PO SCH (08:50)
[2018-08-11 10:20] LABS: ANISOCYTOSIS 2+; HYPOCHROMASIA 1+; PLATELET ESTIMATE DECREASED; TOTAL CELLS COUNTED 100; TOXIC GRANULATION 1+
--- NOTE | 2018-08-11 18:45 | NUR ---
Problems reprioritized. Patient report given, questions answered & plan of care reviewed with Deepthi Adler RN.
--- NOTE | 2018-08-11 18:46 | NUR ---
Patient in room [facility]. I have received report from MEDINA Thurston and had the opportunity to ask questions and assume patient care. Addendum: 08/11/18 at 1846 by Mikki Multani RN Amended: Links added.
[2018-08-11 20:00] VITALS: BP 118/75
[2018-08-12] VITALS: BP 125/74
[2018-08-12] MEDS: piperacillin/tazo 3.375gm/50ml 50 ML IV SCH ×2 (01:26→07:58)
[2018-08-12] MEDS: HYDROmorphone 1 mg/ml syringe IV PRN ×2 (01:33→05:22)
[2018-08-12] MEDS: oxyCODONE/APAP 10/325mg tablet PO PRN ×4 (02:04→21:23)
[2018-08-12 04:54] LABS: MEAN CORPUSCULAR HEMOGLOBIN 25.9 PG (27.0-31.0); MONOCYTES # (AUTO) 0.4 X10'3 (0-0.9)
[2018-08-12 04:56] LABS: BASOPHILS % (AUTO) 0.9 % (0-1); EOSINOPHILS % (AUTO) 0.9 % (0-6); HEMATOCRIT 26.3 % (42.0-52.0); HEMOGLOBIN 8.2 g/dl (14.0-17.9); LYMPHOCYTES # (AUTO) 0.4 X10'3 (1.1-4.8); LYMPHOCYTES % (AUTO) 11.7 % (21-51); MEAN CORPUSCULAR HGB CONC 31.2 g/dL (33.0-36.5); MEAN CORPUSCULAR VOLUME 83.1 FL (78-98); MEAN PLATELET VOLUME 8.9 FL (7.4-10.4); MONOCYTES % (AUTO) 11.8 % (2-12); NEUTROPHILS # (AUTO) 2.7 X10'3 (1.8-7.7); NEUTROPHILS % (AUTO) 74.7 % (42-75); PLATELET COUNT 67 X10'3 (140-440); RED BLOOD COUNT 3.16 X10'6 (4.70-6.10); RED CELL DISTRIBUTION WIDTH 20.3 % (11.5-14.5); WHITE BLOOD COUNT 3.6 X10'3 (4.5-11.0)
[2018-08-12 05:05] LABS: INR 1.4 INR
[2018-08-12 05:07] LABS: ALANINE AMINOTRANSFERASE 15 U/L (12-78); ALBUMIN 1.7 G/DL (3.4-5.0); ALBUMIN/GLOBULIN RATIO 0.5 (1.1-1.5); ALKALINE PHOSPHATASE 123 IU/L (46-116); ANION GAP 4 (8-16); ASPARTATE AMINO TRANSFERASE 42 U/L (10-37); BILIRUBIN,TOTAL 2.4 MG/DL (0.1-1.0); BLOOD UREA NITROGEN 7 MG/DL (7-18); BUN/CREATININE RATIO 8.9 (5.4-32.0); CALCIUM 7.6 MG/DL (8.5-10.1); CHLORIDE 102 MMOL/L (99-107); CREATININE 0.79 MG/DL (0.60-1.10); GLUCOSE 108 MG/DL (70-104); MAGNESIUM 1.6 MG/DL (1.5-2.4); PHOSPHORUS 3.1 MG/DL (2.3-4.5); POTASSIUM 3.7 MMOL/L (3.5-5.1); SODIUM 134 MMOL/L (135-145); TOTAL CARBON DIOXIDE 27.7 MMOL/L (24-32); TOTAL PROTEIN 5.4 G/DL (6.4-8.2); eGFR > 90 ML/MIN
[2018-08-12] MEDS ORDERED: HYDROmorphone inj. 0.5 MG/0.5 ML DISP.SYRIN IV PRN (05:50)
--- NOTE | 2018-08-12 06:00 | NUR ---
Patient in room [facility] 346. I have received report from BHARGAVI HANEY and had the opportunity to ask questions and assume patient care.
--- NOTE | 2018-08-12 06:30 | NUR ---
Patient in room [facility] 346. I have received report from aris rocha and had the opportunity to ask questions and assume patient care.
[2018-08-12] MEDS: amox tr/potassium clavulanate 875/125mg TAB PO SCH ×2 (07:56→16:35)
[2018-08-12] MEDS: pantoprazole 40mg Tablet.DR PO SCH ×2 (07:56→21:22)
[2018-08-12] MEDS: thiamine 100mg tablet PO SCH (07:56)
[2018-08-12] MEDS: lactulose 20gm/30ml cup PO SCH ×2 (07:56→21:22)
[2018-08-12] MEDS: folic acid 1mg tablet PO SCH (07:57)
[2018-08-12] MEDS: docusate sod 100mg capsule PO SCH ×2 (07:57→20:07)
[2018-08-12] MEDS: multivitamins, therapeutics tablet PO SCH (07:58)
[2018-08-12 08:00] VITALS: BP 115/68
[2018-08-12] MEDS: enoxaparin 40mg/0.4ml syringe SUBCUT SCH (08:00)
[2018-08-12] MEDS: K, MAG and/or Phos replacement - Verify level? MC SCH (08:00)
[2018-08-12] MEDS: fluconazole 100mg tablet PO SCH (08:16)
[2018-08-12] MEDS: rifaximin 550mg tablet PO SCH ×2 (08:17→20:07)
--- NOTE | 2018-08-12 10:47 | NUR ---
Patient has urostomy with bag present on the left abdominal region. Drained 110 mL of yellow, thick urine with white, mucoid sediment floating within. Addendum: 08/12/18 at 1054 by Aline CALDWELL Amended: Links added.
[2018-08-12 11:00] VITALS: BP 115/65
--- NOTE | 2018-08-12 11:19 | NUR ---
Reassessment: Patient's perforated viscus and abdominal pain improving per MD notes. Diet has been advanced to regular with documented PO intake averaging 75% of meals likely meeting nutrient needs. Patient's weight fluctuates likely r/t changes in fluid status, currently stable with admit wt. Pt continues with bowel care and no longer constipated with LBM 4/. Will continue to follow. Recommend: 1. Continue with regular diet 2. Monitor need for ONS 3. Wt per rx Addendum: 08/12/18 at [address] Amended: Links added.
[2018-08-12 13:02] VITALS: BP 115/68
--- NOTE | 2018-08-12 13:27 | NUR ---
Patient in room [facility] 346. I have received report from Wesley Chawla and had the opportunity to ask questions and assume patient care.
[2018-08-12 13:41] VITALS: BP 116/68
--- NOTE | 2018-08-12 18:13 | NUR ---
Problems reprioritized. Patient report given, questions answered & plan of care reviewed with MEDINA BLANCO.
--- NOTE | 2018-08-12 18:32 | NUR ---
Patient in room [facility] 346. I have received report from MEDINA GAMBOA and had the opportunity to ask questions and assume patient care.
[2018-08-12 19:00] VITALS: BP 117/73
[2018-08-12] MEDS ORDERED: famotidine 20mg tablet PO SCH (20:00)
[2018-08-12] MEDS: lactobacillus rhamnosus 10,000 MMU CELLS/CAPSULE PO SCH (20:07)
[2018-08-13] VITALS: BP 118/83
[2018-08-13] MEDS: oxyCODONE/APAP 10/325mg tablet PO PRN ×4 (03:58→23:33)
[2018-08-13 05:59] LABS: BASOPHILS % (AUTO) 0.7 % (0-1); EOSINOPHILS % (AUTO) 0.7 % (0-6); HEMATOCRIT 26.6 % (42.0-52.0); HEMOGLOBIN 8.3 g/dl (14.0-17.9); LYMPHOCYTES # (AUTO) 0.3 X10'3 (1.1-4.8); LYMPHOCYTES % (AUTO) 8.9 % (21-51); MEAN CORPUSCULAR HEMOGLOBIN 25.8 PG (27.0-31.0); MEAN CORPUSCULAR HGB CONC 31.3 g/dL (33.0-36.5); MEAN CORPUSCULAR VOLUME 82.3 FL (78-98); MONOCYTES # (AUTO) 0.4 X10'3 (0-0.9); MONOCYTES % (AUTO) 11.7 % (2-12); NEUTROPHILS # (AUTO) 2.7 X10'3 (1.8-7.7); PLATELET COUNT 79 X10'3 (140-440); RED BLOOD COUNT 3.23 X10'6 (4.70-6.10); RED CELL DISTRIBUTION WIDTH 19.8 % (11.5-14.5); WHITE BLOOD COUNT 3.4 X10'3 (4.5-11.0)
[2018-08-13 06:07] LABS: INR 1.5 INR
[2018-08-13 06:11] LABS: ALANINE AMINOTRANSFERASE 18 U/L (12-78); ALBUMIN 1.8 G/DL (3.4-5.0); ALBUMIN/GLOBULIN RATIO 0.5 (1.1-1.5); ALKALINE PHOSPHATASE 128 IU/L (46-116); ANION GAP 5 (8-16); ASPARTATE AMINO TRANSFERASE 42 U/L (10-37); BILIRUBIN,TOTAL 2.7 MG/DL (0.1-1.0); BLOOD UREA NITROGEN 9 MG/DL (7-18); BUN/CREATININE RATIO 11.4 (5.4-32.0); CALCIUM 7.7 MG/DL (8.5-10.1); CHLORIDE 101 MMOL/L (99-107); CREATININE 0.79 MG/DL (0.60-1.10); GLUCOSE 102 MG/DL (70-104); MAGNESIUM 1.6 MG/DL (1.5-2.4); PHOSPHORUS 3.2 MG/DL (2.3-4.5); POTASSIUM 4.1 MMOL/L (3.5-5.1); SODIUM 134 MMOL/L (135-145); TOTAL PROTEIN 5.7 G/DL (6.4-8.2); eGFR > 90 ML/MIN
--- NOTE | 2018-08-13 06:25 | NUR ---
Problems reprioritized. Patient report given, questions answered & plan of care reviewed with MEDINA Arriaga. Addendum: 08/13/18 at 0625 by Mikki Multani RN Amended: Links added.
[2018-08-13 06:51] LABS: ANISOCYTOSIS 2+; HYPOCHROMASIA 1+; PLATELET ESTIMATE DECREASED; POLYCHROMASIA 1+
[2018-08-13 06:52] LABS: STOMATOCYTES 1+
[2018-08-13 07:00] VITALS: BP 114/72
[2018-08-13] MEDS: K, MAG and/or Phos replacement - Verify level? MC SCH (07:02)
[2018-08-13] MEDS: lactulose 20gm/30ml cup PO SCH ×3 (07:54→20:55)
[2018-08-13] MEDS: docusate sod 100mg capsule PO SCH ×2 (07:54→19:13)
[2018-08-13] MEDS: amox tr/potassium clavulanate 875/125mg TAB PO SCH ×2 (07:55→17:43)
[2018-08-13] MEDS: lactobacillus rhamnosus 10,000 MMU CELLS/CAPSULE PO SCH ×2 (07:55→19:13)
[2018-08-13] MEDS: rifaximin 550mg tablet PO SCH ×2 (07:55→19:13)
[2018-08-13] MEDS: pantoprazole 40mg Tablet.DR PO SCH ×2 (07:55→19:13)
[2018-08-13] MEDS: multivitamins, therapeutics tablet PO SCH (07:55)
[2018-08-13] MEDS: fluconazole 100mg tablet PO SCH (07:55)
[2018-08-13] MEDS: furosemide 20MG tablet PO SCH (07:55)
[2018-08-13] MEDS: methylnaltrexone br 12mg/0.6ml inj***SubQ only SQ SCH (07:55)
[2018-08-13] MEDS: folic acid 1mg tablet PO SCH (07:55)
[2018-08-13] MEDS: enoxaparin 40mg/0.4ml syringe SUBCUT SCH (07:56)
[2018-08-13] MEDS: thiamine 100mg tablet PO SCH (08:02)
[2018-08-13 12:00] VITALS: BP 119/70
--- NOTE | 2018-08-13 18:22 | NUR ---
Problems reprioritized. Patient report given, questions answered & plan of care reviewed with KWAME HANEY.
--- NOTE | 2018-08-13 18:41 | NUR ---
Patient in room [facility] 346. I have received report from MEDINA Arriaga and had the opportunity to ask questions and assume patient care.
[2018-08-13 19:00] VITALS: BP 108/70
[2018-08-13] MEDS: magnesium hydroxide 30ml (MOM) UD suspension PO PRN (23:34)
[2018-08-14] VITALS: BP 131/86
[2018-08-14] MEDS: oxyCODONE/APAP 10/325mg tablet PO PRN ×4 (05:06→23:38)
[2018-08-14 05:25] LABS: EOSINOPHILS % (AUTO) 0.8 % (0-6); HEMATOCRIT 26.2 % (42.0-52.0); HEMOGLOBIN 8.6 g/dl (14.0-17.9); LYMPHOCYTES # (AUTO) 0.4 X10'3 (1.1-4.8); LYMPHOCYTES % (AUTO) 11.2 % (21-51); MEAN CORPUSCULAR HEMOGLOBIN 26.6 PG (27.0-31.0); MEAN CORPUSCULAR HGB CONC 32.7 g/dL (33.0-36.5); MEAN CORPUSCULAR VOLUME 81.3 FL (78-98); MEAN PLATELET VOLUME 9.3 FL (7.4-10.4); MONOCYTES # (AUTO) 0.4 X10'3 (0-0.9); NEUTROPHILS # (AUTO) 2.9 X10'3 (1.8-7.7); PLATELET COUNT 87 X10'3 (140-440); RED BLOOD COUNT 3.23 X10'6 (4.70-6.10); RED CELL DISTRIBUTION WIDTH 20.3 % (11.5-14.5); WHITE BLOOD COUNT 3.7 X10'3 (4.5-11.0)
[2018-08-14 05:43] LABS: INR 1.4 INR
[2018-08-14 05:56] LABS: ALANINE AMINOTRANSFERASE 20 U/L (12-78); ALBUMIN 1.8 G/DL (3.4-5.0); ALBUMIN/GLOBULIN RATIO 0.4 (1.1-1.5); ALKALINE PHOSPHATASE 137 IU/L (46-116); ANION GAP 3 (8-16); ASPARTATE AMINO TRANSFERASE 41 U/L (10-37); BILIRUBIN,TOTAL 2.2 MG/DL (0.1-1.0); BLOOD UREA NITROGEN 7 MG/DL (7-18); BUN/CREATININE RATIO 8.6 (5.4-32.0); CALCIUM 7.8 MG/DL (8.5-10.1); CHLORIDE 101 MMOL/L (99-107); CREATININE 0.81 MG/DL (0.60-1.10); GLUCOSE 99 MG/DL (70-104); MAGNESIUM 1.6 MG/DL (1.5-2.4); PHOSPHORUS 3.4 MG/DL (2.3-4.5); POTASSIUM 4.2 MMOL/L (3.5-5.1); SODIUM 134 MMOL/L (135-145); TOTAL CARBON DIOXIDE 29.7 MMOL/L (24-32); eGFR > 90 ML/MIN
--- NOTE | 2018-08-14 06:47 | NUR ---
Problems reprioritized. Patient report given, questions answered & plan of care reviewed with MEDINA Carlisle.
[2018-08-14 07:00] VITALS: BP 128/76
--- NOTE | 2018-08-14 07:07 | NUR ---
Patient in room [facility] 346. I have received report from Imelda HANEY and had the opportunity to ask questions and assume patient care.
[2018-08-14] MEDS: enoxaparin 40mg/0.4ml syringe SUBCUT SCH (08:00)
[2018-08-14] MEDS: K, MAG and/or Phos replacement - Verify level? MC SCH (08:00)
[2018-08-14] MEDS: lactulose 20gm/30ml cup PO SCH ×3 (08:18→19:58)
[2018-08-14] MEDS: multivitamins, therapeutics tablet PO SCH (08:19)
[2018-08-14] MEDS: thiamine 100mg tablet PO SCH (08:19)
[2018-08-14] MEDS: lactobacillus rhamnosus 10,000 MMU CELLS/CAPSULE PO SCH ×2 (08:19→19:58)
[2018-08-14] MEDS: folic acid 1mg tablet PO SCH (08:19)
[2018-08-14] MEDS: rifaximin 550mg tablet PO SCH ×2 (08:19→19:58)
[2018-08-14] MEDS: pantoprazole 40mg Tablet.DR PO SCH ×2 (08:19→19:58)
[2018-08-14] MEDS: docusate sod 100mg capsule PO SCH ×2 (08:19→19:59)
[2018-08-14] MEDS: amox tr/potassium clavulanate 875/125mg TAB PO SCH ×2 (08:19→17:59)
[2018-08-14] MEDS: fluconazole 100mg tablet PO SCH (08:19)
[2018-08-14] MEDS: furosemide 20MG tablet PO SCH (08:19)
--- NOTE | 2018-08-14 08:27 | NUR ---
Patient's peripheral IV on the left forearm is dated 08/09, redness around the site is nPatient refused new IV reinsertion,
--- NOTE | 2018-08-14 08:28 | NUR ---
Patient's peripheral IV on the left forearm is dated 08/09, redness around the site is noted. Explained to patient the need to replace the current peripheral IV catheter as it is outdated and reddened around the insertion site.Patient refused new IV reinsertion,
--- NOTE | 2018-08-14 08:31 | NUR ---
Lovenox not given today due to low platelet count of 87. It has been low previously. Encouraged patient to ambulate frequently Addendum: 08/14/18 at 1106 by Maylin Shaffer RN Alyssia BUCK notified about patient's low platelet count and that Lovenox was held
[2018-08-14 11:00] VITALS: BP 117/78
--- NOTE | 2018-08-14 14:59 | NUR ---
Patient had small pebble size BM when he went to the bathroom
[2018-08-14] MEDS ORDERED: diatr meglu/diatrizoate 30ml oral sol.-(3 dose) bottle PO SCH ×2 (15:00→21:00)
[2018-08-14 18:00] VITALS: BP 114/74
--- NOTE | 2018-08-14 18:40 | NUR ---
Problems reprioritized. Patient report given, questions answered & plan of care reviewed with Imelda HANEY.
--- NOTE | 2018-08-14 18:52 | NUR ---
Patient in room [facility] 346. I have received report from MEDINA Carlisle and had the opportunity to ask questions and assume patient care.
[2018-08-14] MEDS: diatr meglu/diatrizoate 30ml oral sol.-(3 dose) bottle PO SCH ×2 (21:00→21:37)
[2018-08-15] VITALS: BP 115/73
[2018-08-15 00:47] LABS: BASOPHILS # (AUTO) 0.1 X10'3 (0-0.2); BASOPHILS % (AUTO) 1.3 % (0-1); EOSINOPHILS % (AUTO) 0.9 % (0-6); HEMATOCRIT 27.3 % (42.0-52.0); HEMOGLOBIN 8.5 g/dl (14.0-17.9); LYMPHOCYTES # (AUTO) 0.3 X10'3 (1.1-4.8); LYMPHOCYTES % (AUTO) 6.6 % (21-51); MEAN CORPUSCULAR HEMOGLOBIN 25.6 PG (27.0-31.0); MEAN CORPUSCULAR HGB CONC 31.1 g/dL (33.0-36.5); MEAN CORPUSCULAR VOLUME 82.3 FL (78-98); MONOCYTES # (AUTO) 0.5 X10'3 (0-0.9); MONOCYTES % (AUTO) 12.7 % (2-12); NEUTROPHILS # (AUTO) 3.3 X10'3 (1.8-7.7); NEUTROPHILS % (AUTO) 78.5 % (42-75); PLATELET COUNT 119 X10'3 (140-440); RED BLOOD COUNT 3.32 X10'6 (4.70-6.10); RED CELL DISTRIBUTION WIDTH 20.1 % (11.5-14.5); WHITE BLOOD COUNT 4.2 X10'3 (4.5-11.0)
[2018-08-15 00:56] LABS: ALANINE AMINOTRANSFERASE 16 U/L (12-78); ALBUMIN 1.8 G/DL (3.4-5.0); ALBUMIN/GLOBULIN RATIO 0.4 (1.1-1.5); ALKALINE PHOSPHATASE 151 IU/L (46-116); ANION GAP 4 (8-16); ASPARTATE AMINO TRANSFERASE 42 U/L (10-37); BILIRUBIN,TOTAL 1.8 MG/DL (0.1-1.0); BLOOD UREA NITROGEN 9 MG/DL (7-18); CHLORIDE 101 MMOL/L (99-107); CREATININE 0.75 MG/DL (0.60-1.10); GLUCOSE 101 MG/DL (70-104); MAGNESIUM 1.7 MG/DL (1.5-2.4); PHOSPHORUS 3.6 MG/DL (2.3-4.5); POTASSIUM 4.9 MMOL/L (3.5-5.1); SODIUM 132 MMOL/L (135-145); TOTAL CARBON DIOXIDE 26.8 MMOL/L (24-32); TOTAL PROTEIN 6.4 G/DL (6.4-8.2); eGFR > 90 ML/MIN
[2018-08-15 01:13] LABS: INR 1.4 INR
[2018-08-15 01:53] LABS: ANISOCYTOSIS 3+; PLATELET ESTIMATE DECREASED
[2018-08-15 01:54] LABS: ELLIPTOCYTES FEW; POLYCHROMASIA FEW
[2018-08-15] MEDS: lactulose 20gm/30ml cup PO SCH ×4 (02:18→20:33)
[2018-08-15] MEDS: oxyCODONE/APAP 10/325mg tablet PO PRN ×3 (05:11→20:33)
--- NOTE | 2018-08-15 06:07 | NUR ---
Problems reprioritized. Patient report given, questions answered & plan of care reviewed with MEDINA Carlisle.
--- NOTE | 2018-08-15 06:11 | NUR ---
Patient in room [facility] 346. I have received report from Imelda HANEY and had the opportunity to ask questions and assume patient care.
[2018-08-15 07:00] VITALS: BP 106/66
[2018-08-15] MEDS: K, MAG and/or Phos replacement - Verify level? MC SCH (08:00)
[2018-08-15] MEDS: diatr meglu/diatrizoate 30ml oral sol.-(3 dose) bottle PO SCH ×2 (08:23→21:00)
[2018-08-15] MEDS: enoxaparin 40mg/0.4ml syringe SUBCUT SCH (08:24)
[2018-08-15] MEDS: docusate sod 100mg capsule PO SCH ×2 (08:24→20:33)
[2018-08-15] MEDS: folic acid 1mg tablet PO SCH (08:24)
[2018-08-15] MEDS: amox tr/potassium clavulanate 875/125mg TAB PO SCH ×2 (08:24→19:29)
[2018-08-15] MEDS: multivitamins, therapeutics tablet PO SCH (08:24)
[2018-08-15] MEDS: furosemide 20MG tablet PO SCH (08:24)
[2018-08-15] MEDS: pantoprazole 40mg Tablet.DR PO SCH ×2 (08:24→20:33)
[2018-08-15] MEDS: lactobacillus rhamnosus 10,000 MMU CELLS/CAPSULE PO SCH ×2 (08:24→20:33)
[2018-08-15] MEDS: thiamine 100mg tablet PO SCH (08:25)
[2018-08-15] MEDS: methylnaltrexone br 12mg/0.6ml inj***SubQ only SQ SCH (08:25)
[2018-08-15] MEDS ORDERED: iohexol 300mg/ml 100ml inj. ONE (09:02)
[2018-08-15] MEDS: fluconazole 100mg tablet PO SCH (10:12)
[2018-08-15] MEDS: rifaximin 550mg tablet PO SCH ×2 (10:12→20:33)
[2018-08-15 12:00] VITALS: BP 124/77
--- NOTE | 2018-08-15 15:40 | NUR ---
Patient was complaining of left arm discomfort/pain, Percocet given. Alyssia BUCK notified about this. She said to let her know if persistent
--- NOTE | 2018-08-15 16:22 | NUR ---
Patient requested his ostomy bag to be changed. Old ostomy bag removed, patient states "this is infected, you need to get the doctor here!" the ostomy bag has yellow color drainage, no foul odor, patient was not running fever today. Patient grabbed 4x4 gauze and covered the ileostomy site. Patient refusing to have a new ostomy bag applied and the drainage is leaking. I tried to call Alyssia BUCK, unable to contact her at the moment. Patient requested charge nurse to talk to him. Charge nurse Aubree notified Addendum: 08/15/18 at 1732 by Maylin Shaffer RN I told the patient that he would have to address his concern to the doctor when the doctor comes back. Dr. Quintero, the surgeon already came this am and saw the wound as well as the drainage
--- NOTE | 2018-08-15 16:37 | NUR ---
Charge nurse Aubree spoke to the patient. Patient requested another nurse to care for him as per my charge nurse told me after she talked to the patient. Kristi HANEY will place the ostomy appliance back.
--- NOTE | 2018-08-15 17:30 | NUR ---
Kristi HANEY applied the ostomy bag on the patient's left abdomen
--- NOTE | 2018-08-15 18:30 | NUR ---
Patient in room [facility] 346. I have received report from [facility] and had the opportunity to ask questions and assume patient care. ASSUMED CARE OF PT WITH RN STUDENT HARVEY Smith
--- NOTE | 2018-08-15 18:40 | NUR ---
Problems reprioritized. Patient report given, questions answered & plan of care reviewed with Abbie HANEY.
[2018-08-15 19:00] VITALS: BP 119/70
[2018-08-15 23:00] VITALS: BP 112/71
[2018-08-16] MEDS: lactulose 20gm/30ml cup PO SCH ×4 (02:00→20:05)
[2018-08-16] MEDS: oxyCODONE/APAP 10/325mg tablet PO PRN ×4 (02:10→20:06)
[2018-08-16 05:19] LABS: EOSINOPHILS % (AUTO) 1.2 % (0-6); HEMATOCRIT 26.3 % (42.0-52.0); HEMOGLOBIN 8.1 g/dl (14.0-17.9); LYMPHOCYTES # (AUTO) 0.3 X10'3 (1.1-4.8); LYMPHOCYTES % (AUTO) 11.7 % (21-51); MEAN CORPUSCULAR HEMOGLOBIN 25.5 PG (27.0-31.0); MEAN CORPUSCULAR HGB CONC 30.7 g/dL (33.0-36.5); MEAN CORPUSCULAR VOLUME 83.1 FL (78-98); MEAN PLATELET VOLUME 8.8 FL (7.4-10.4); MONOCYTES # (AUTO) 0.3 X10'3 (0-0.9); MONOCYTES % (AUTO) 15.2 % (2-12); NEUTROPHILS # (AUTO) 1.6 X10'3 (1.8-7.7); NEUTROPHILS % (AUTO) 70.9 % (42-75); PLATELET COUNT 105 X10'3 (140-440); RED BLOOD COUNT 3.16 X10'6 (4.70-6.10); RED CELL DISTRIBUTION WIDTH 20.1 % (11.5-14.5); WHITE BLOOD COUNT 2.2 X10'3 (4.5-11.0)
--- NOTE | 2018-08-16 05:25 | NUR ---
Student documentation: I have reviewed and agree with all interventions, assessments performed and documented by HARVEY SmithStudent Medication Administration: For this medication-pass time frame, all medication were reviewed, dispensed, administered and documented per hospital policy by HARVEY Smith
[2018-08-16 05:37] LABS: ALANINE AMINOTRANSFERASE 17 U/L (12-78); ALBUMIN 1.7 G/DL (3.4-5.0); ALBUMIN/GLOBULIN RATIO 0.4 (1.1-1.5); ALKALINE PHOSPHATASE 155 IU/L (46-116); ANION GAP 5 (8-16); ASPARTATE AMINO TRANSFERASE 46 U/L (10-37); BILIRUBIN,TOTAL 1.8 MG/DL (0.1-1.0); BLOOD UREA NITROGEN 6 MG/DL (7-18); BUN/CREATININE RATIO 8.3 (5.4-32.0); CALCIUM 8.2 MG/DL (8.5-10.1); CHLORIDE 100 MMOL/L (99-107); CREATININE 0.72 MG/DL (0.60-1.10); GLUCOSE 109 MG/DL (70-104); MAGNESIUM 1.5 MG/DL (1.5-2.4); PHOSPHORUS 3.5 MG/DL (2.3-4.5); POTASSIUM 4.2 MMOL/L (3.5-5.1); SODIUM 134 MMOL/L (135-145); TOTAL CARBON DIOXIDE 28.6 MMOL/L (24-32); TOTAL PROTEIN 6.2 G/DL (6.4-8.2); eGFR > 90 ML/MIN
[2018-08-16 05:46] LABS: INR 1.4 INR
[2018-08-16 06:11] LABS: ANISOCYTOSIS 3+; PLATELET ESTIMATE DECREASED; POLYCHROMASIA FEW; TOTAL CELLS COUNTED 100
[2018-08-16 06:12] LABS: HYPOCHROMASIA 1+
--- NOTE | 2018-08-16 06:15 | NUR ---
I have received report from Abbie HANEY and had the opportunity to ask questions and assume patient care.
--- NOTE | 2018-08-16 06:32 | NUR ---
Problems reprioritized. Patient report given, questions answered & plan of care reviewed with BILLY.
[2018-08-16] MEDS: amox tr/potassium clavulanate 875/125mg TAB PO SCH ×2 (08:00→16:43)
[2018-08-16] MEDS: K, MAG and/or Phos replacement - Verify level? MC SCH (08:00)
[2018-08-16] MEDS: folic acid 1mg tablet PO SCH (08:00)
[2018-08-16] MEDS: enoxaparin 40mg/0.4ml syringe SUBCUT SCH (08:00)
[2018-08-16] MEDS: pantoprazole 40mg Tablet.DR PO SCH ×2 (08:01→20:05)
[2018-08-16] MEDS: furosemide 20MG tablet PO SCH (08:01)
[2018-08-16] MEDS: thiamine 100mg tablet PO SCH (08:02)
[2018-08-16] MEDS: fluconazole 100mg tablet PO SCH (08:02)
[2018-08-16] MEDS: rifaximin 550mg tablet PO SCH ×2 (08:02→20:05)
[2018-08-16] MEDS: multivitamins, therapeutics tablet PO SCH (08:02)
[2018-08-16] MEDS: lactobacillus rhamnosus 10,000 MMU CELLS/CAPSULE PO SCH ×2 (08:03→20:05)
[2018-08-16] MEDS: docusate sod 100mg capsule PO SCH ×2 (08:03→20:00)
[2018-08-16 09:35] VITALS: BP 123/72
[2018-08-16 12:02] VITALS: BP 109/72
--- NOTE | 2018-08-16 18:30 | NUR ---
Problems reprioritized. Patient report given, questions answered & plan of care reviewed with Khushbu HANEY.
[2018-08-16 20:00] VITALS: BP 111/65
--- NOTE | 2018-08-16 20:10 | NUR ---
Patient states he has had 4 loose BM's so far today. States his legs and feet are double their normal size and states the urostomy bag covering the FLOWER site has changed color. Was a clear yellow, is now clear pink.
--- NOTE | 2018-08-16 22:23 | NUR ---
At change of shift pt states his swelling in legs has doubled. Advised we would speak to MD in AM. Pt now demanding extra dose of lasix. Placed several fingers into right foot split to ensure plenty of room. Called May to advise. States she does not feel comfortable ordering extra dose of lasix and not immediate need as pain due to splint and respiratory is not an issue. States we will discuss with daytime MD following. Patient advised. Patient persistent that he wants to speak with the person who failed to order lasix. Called May again advising of pt response. States she is busy and will come later if time allows, however, unless there is an emergent need, she will still not order extra dose of lasix. Is not familiar enough with the patient and not emergent need. Should be addressed with daytime MD. Requested that patient be kept on strict I&O's. Provided pt with urinal and updated patient. Patient recorded what I said and said it was outrageous that the MD would not come see him. I reiterated to the patient that the MD has not refused to see the patient, rather she could not come now and will come later if time allows.
[2018-08-16] MEDS ORDERED: furosemide 20MG tablet PO ONE (23:20)
[2018-08-17] VITALS: BP 133/83
--- NOTE | 2018-08-17 01:17 | NUR ---
Pt midline incision seeping slightly. Placed border gauze over torie.
[2018-08-17] MEDS: lactulose 20gm/30ml cup PO SCH ×4 (01:45→20:16)
[2018-08-17] MEDS: oxyCODONE/APAP 10/325mg tablet PO PRN ×4 (01:46→20:35)
--- NOTE | 2018-08-17 02:09 | NUR ---
border guaze to midline seeping from bottom. Redressed with 4x4's and abd pad and foam tape.
[2018-08-17 05:08] LABS: INR 1.5 INR
[2018-08-17 05:11] LABS: BASOPHILS % (AUTO) 1.2 % (0-1); EOSINOPHILS % (AUTO) 1.3 % (0-6); HEMATOCRIT 22.9 % (42.0-52.0); HEMOGLOBIN 7.4 g/dl (14.0-17.9); LYMPHOCYTES # (AUTO) 0.3 X10'3 (1.1-4.8); LYMPHOCYTES % (AUTO) 14.1 % (21-51); MEAN CORPUSCULAR HEMOGLOBIN 26.4 PG (27.0-31.0); MEAN CORPUSCULAR HGB CONC 32.3 g/dL (33.0-36.5); MEAN CORPUSCULAR VOLUME 81.8 FL (78-98); MEAN PLATELET VOLUME 8.8 FL (7.4-10.4); MONOCYTES # (AUTO) 0.3 X10'3 (0-0.9); NEUTROPHILS # (AUTO) 1.4 X10'3 (1.8-7.7); NEUTROPHILS % (AUTO) 67.4 % (42-75); PLATELET COUNT 100 X10'3 (140-440)
[2018-08-17 05:27] LABS: ALANINE AMINOTRANSFERASE 17 U/L (12-78); ALBUMIN 1.4 G/DL (3.4-5.0); ALBUMIN/GLOBULIN RATIO 0.3 (1.1-1.5); ALKALINE PHOSPHATASE 145 IU/L (46-116); ANION GAP 5 (8-16); ASPARTATE AMINO TRANSFERASE 47 U/L (10-37); BILIRUBIN,TOTAL 1.5 MG/DL (0.1-1.0); BLOOD UREA NITROGEN 5 MG/DL (7-18); BUN/CREATININE RATIO 5.4 (5.4-32.0); CALCIUM 7.7 MG/DL (8.5-10.1); CHLORIDE 102 MMOL/L (99-107); CREATININE 0.92 MG/DL (0.60-1.10); GLUCOSE 139 MG/DL (70-104); MAGNESIUM 1.4 MG/DL (1.5-2.4); PHOSPHORUS 3.8 MG/DL (2.3-4.5); POTASSIUM 3.9 MMOL/L (3.5-5.1); SODIUM 135 MMOL/L (135-145); TOTAL PROTEIN 5.5 G/DL (6.4-8.2); eGFR 89 ML/MIN
--- NOTE | 2018-08-17 06:24 | NUR ---
Problems reprioritized. Patient report given, questions answered & plan of care reviewed with MEDINA Cervantes.
[2018-08-17 06:31] LABS: TOTAL CELLS COUNTED 100
[2018-08-17 06:32] LABS: ANISOCYTOSIS 2+; LARGE PLATELETS FEW; PLATELET ESTIMATE DECREASED
[2018-08-17 06:33] LABS: POLYCHROMASIA FEW
--- NOTE | 2018-08-17 06:44 | NUR ---
I have received report from Khushbu Stark RN and had the opportunity to ask questions and assume patient care.
[2018-08-17] MEDS: lactobacillus rhamnosus 10,000 MMU CELLS/CAPSULE PO SCH ×2 (07:32→20:16)
[2018-08-17] MEDS: fluconazole 100mg tablet PO SCH (07:32)
[2018-08-17] MEDS: multivitamins, therapeutics tablet PO SCH (07:32)
[2018-08-17] MEDS: rifaximin 550mg tablet PO SCH ×2 (07:32→20:16)
[2018-08-17] MEDS: thiamine 100mg tablet PO SCH (07:33)
[2018-08-17] MEDS: folic acid 1mg tablet PO SCH (07:33)
[2018-08-17] MEDS: furosemide 20MG tablet PO SCH (07:33)
[2018-08-17] MEDS: pantoprazole 40mg Tablet.DR PO SCH ×2 (07:33→20:16)
[2018-08-17 08:00] VITALS: BP 109/69
[2018-08-17] MEDS: docusate sod 100mg capsule PO SCH ×2 (08:00→20:00)
[2018-08-17] MEDS: enoxaparin 40mg/0.4ml syringe SUBCUT SCH (08:00)
[2018-08-17] MEDS: K, MAG and/or Phos replacement - Verify level? MC SCH (08:00)
[2018-08-17] MEDS: methylnaltrexone br 12mg/0.6ml inj***SubQ only SQ SCH (08:00)
--- NOTE | 2018-08-17 08:00 | NUR ---
I had given this patient their medications on time, and was finishing up administering B beds medication pass. As I was leaving the room the patient wanted to know when he would be getting his medications. I informed him that I had given his medications earlier.
--- NOTE | 2018-08-17 08:22 | NUR ---
Patient wanted dressing changed on abdominal incision, when letting the patient know that we would change it he stated "I will wait for the dressing change so the doctor can see it." Now the patient is complaining that his dressing needs to be changed, and we offered to change the dressing right now but he reports "I want the doctor to come in right now to see my abdominal incision. He has his phone out and is taking pictures of his fluid from his incisional site.
--- NOTE | 2018-08-17 08:30 | NUR ---
Offered to change patients dressing again, he states that he wants the doctor to see it and that he will be calling the main line for the doctor. He is advised that the doctor will be rounding on him today, he states that he will be recording this and picks up his phone to record. Nursing staff has advised him that he is not to record. Patient states he is going to do everything the "legal way". He states that he wants a doctor in his room NOW, and that there is supposed to be a doctor available at all times when he needs them.
--- NOTE | 2018-08-17 08:37 | NUR ---
Paged house keeping to clean floor for patient. Drainage on the floor do to patient not allowing his dressing change to be completed do to wanting the doctor to see the dressing and drainage. Drainage wiped up by patient.
--- NOTE | 2018-08-17 10:53 | NUR ---
Reassessment: Pt s/p CT with findings suspicious for gastric outlet obstruction per MD notes. Patient was tolerating regular diet however had distended abdomen with no BM x 2 days and diet was decreased to clear liquid x 24 hours then advanced to full liquid per MD notes. Patient's Lactulose was increased and pt had a BM the next day (08/15) per PA notes. Pt continues on full liquid diet with documented PO intake 75-100%. LBM 08/17. Will continue to follow and make recommendations as appropriate. Recommend: 1. Advance to regular diet as medically indicated 2. Monitor need for ONS 3. Wt per rx Addendum: 08/17/18 at [address] Amended: Links added.
[2018-08-17] MEDS: amox tr/potassium clavulanate 875/125mg TAB PO SCH ×2 (11:23→17:25)
[2018-08-17 12:00] VITALS: BP 127/67
--- NOTE | 2018-08-17 12:47 | NUR ---
Patient complains of still being on a full liquid diet. He states that he was told that he was only supposed to be on a full liquid diet for one day. I informed him that his orders are still full liquid. He then proceeded to complain that he would discuss it with his doctor and that his doctor should have been here by now because "people could have ."
--- NOTE | 2018-08-17 14:45 | NUR ---
Patient still complaining about full liquid diet and how it is time for his pain medication. He was then told that his doctor still hasn't been up yet to discuss his complaints with him. He complained to the ruth Turcios about his diet and medications.
--- NOTE | 2018-08-17 15:05 | NUR ---
Patient upset about his dressing and how his wound is draining, Patient states, "Dr. Kaur wasn't supposed to be invasive with his surgery, he did it all wrong, he didn't need to open me up. Im going to let him know too. Is he monitoring me for any type of infection?" Patient is rude and demanding, demands his pain medications from the nursing staff. Refuses Lactulose today. Patient wants a regular diet and states that he is only having colored water, patient states, "I will let the doctor know that he is going to change that order when he gets here." Dressing has been changed 2 times today.
--- NOTE | 2018-08-17 15:14 | NUR ---
Encouraged patient to empty his own ostomy pouch himself, and patient stated "It's better if you guys do it for me."
--- NOTE | 2018-08-17 15:42 | NUR ---
Dr Kaur in to see patient
--- NOTE | 2018-08-17 16:16 | NUR ---
Changed patient to B bed.
--- NOTE | 2018-08-17 18:23 | NUR ---
Problems reprioritized. Patient report given, questions answered & plan of care reviewed with Khushbu HANEY.
[2018-08-17 19:00] VITALS: BP 118/63
--- NOTE | 2018-08-17 19:19 | NUR ---
Pt not in room, aid states saw pt getting in elevator.
--- NOTE | 2018-08-17 20:00 | NUR ---
Pt abdominal dressing saturated. Changed. Patient refused spironolactone. States he was on the medication a couple years back and the medication promotes breast growth. States there are other medications the MD can order and he will not take this one.
[2018-08-17] MEDS: furosemide 40mg tablet PO SCH (20:16)
[2018-08-17] MEDS: spironolactone 25 MG tablet PO SCH (21:00)
[2018-08-18] VITALS: BP 105/63
--- NOTE | 2018-08-18 01:45 | NUR ---
Abdominal dressing saturated. Changed.
[2018-08-18] MEDS: oxyCODONE/APAP 10/325mg tablet PO PRN ×4 (02:09→19:53)
[2018-08-18] MEDS: lactulose 20gm/30ml cup PO SCH ×4 (02:12→19:52)
[2018-08-18 05:19] LABS: BASOPHILS % (AUTO) 1.4 % (0-1); EOSINOPHILS % (AUTO) 1.2 % (0-6); HEMATOCRIT 23.7 % (42.0-52.0); HEMOGLOBIN 7.6 g/dl (14.0-17.9); LYMPHOCYTES # (AUTO) 0.3 X10'3 (1.1-4.8); LYMPHOCYTES % (AUTO) 18.4 % (21-51); MEAN CORPUSCULAR HEMOGLOBIN 26.2 PG (27.0-31.0); MEAN CORPUSCULAR VOLUME 81.7 FL (78-98); MEAN PLATELET VOLUME 8.5 FL (7.4-10.4); MONOCYTES # (AUTO) 0.3 X10'3 (0-0.9); MONOCYTES % (AUTO) 20.2 % (2-12); NEUTROPHILS % (AUTO) 58.8 % (42-75); PLATELET COUNT 108 X10'3 (140-440); RED CELL DISTRIBUTION WIDTH 20.1 % (11.5-14.5); WHITE BLOOD COUNT 1.6 X10'3 (4.5-11.0)
[2018-08-18 05:22] LABS: INR 1.5 INR
[2018-08-18 05:34] LABS: ALANINE AMINOTRANSFERASE 15 U/L (12-78); ALBUMIN 1.4 G/DL (3.4-5.0); ALBUMIN/GLOBULIN RATIO 0.3 (1.1-1.5); ALKALINE PHOSPHATASE 147 IU/L (46-116); ANION GAP 2 (8-16); ASPARTATE AMINO TRANSFERASE 45 U/L (10-37); BILIRUBIN,TOTAL 1.3 MG/DL (0.1-1.0); BLOOD UREA NITROGEN 2 MG/DL (7-18); BUN/CREATININE RATIO 2.3 (5.4-32.0); CALCIUM 7.4 MG/DL (8.5-10.1); CHLORIDE 102 MMOL/L (99-107); CREATININE 0.87 MG/DL (0.60-1.10); GLUCOSE 116 MG/DL (70-104); MAGNESIUM 1.2 MG/DL (1.5-2.4); PHOSPHORUS 4.1 MG/DL (2.3-4.5); POTASSIUM 3.7 MMOL/L (3.5-5.1); SODIUM 134 MMOL/L (135-145); TOTAL CARBON DIOXIDE 29.6 MMOL/L (24-32); TOTAL PROTEIN 5.5 G/DL (6.4-8.2); eGFR > 90 ML/MIN
[2018-08-18 06:32] LABS: ANISOCYTOSIS 3+; PLATELET ESTIMATE DECREASED; TOTAL CELLS COUNTED 100
[2018-08-18 06:34] LABS: ELLIPTOCYTES FEW; LARGE PLATELETS FEW; POLYCHROMASIA FEW; SCHISTOCYTES FEW
--- NOTE | 2018-08-18 06:39 | NUR ---
Problems reprioritized. Patient report given, questions answered & plan of care reviewed with MEDINA Escudero.
[2018-08-18 07:00] VITALS: BP 114/71
--- NOTE | 2018-08-18 07:06 | NUR ---
Patient in room [facility]. I have received report from Khushbu HANEY and had the opportunity to ask questions and assume patient care.
[2018-08-18] MEDS: docusate sod 100mg capsule PO SCH ×2 (07:54→20:00)
[2018-08-18] MEDS: folic acid 1mg tablet PO SCH (07:55)
[2018-08-18] MEDS: multivitamins, therapeutics tablet PO SCH (07:55)
[2018-08-18] MEDS: thiamine 100mg tablet PO SCH (07:55)
[2018-08-18] MEDS: lactobacillus rhamnosus 10,000 MMU CELLS/CAPSULE PO SCH ×2 (07:55→19:52)
[2018-08-18] MEDS: amox tr/potassium clavulanate 875/125mg TAB PO SCH ×2 (07:55→17:05)
[2018-08-18] MEDS: pantoprazole 40mg Tablet.DR PO SCH ×2 (07:55→19:52)
[2018-08-18] MEDS: spironolactone 25 MG tablet PO SCH ×3 (07:56→21:00)
[2018-08-18] MEDS: furosemide 40mg tablet PO SCH ×2 (07:56→19:52)
[2018-08-18] MEDS: enoxaparin 40mg/0.4ml syringe SUBCUT SCH (08:00)
[2018-08-18] MEDS: K, MAG and/or Phos replacement - Verify level? MC SCH (08:00)
[2018-08-18] MEDS: mag hydrox/Alum hydrox/simeth 30ml oral suspension PO PRN (08:10)
[2018-08-18] MEDS: rifaximin 550mg tablet PO SCH ×2 (09:09→19:54)
[2018-08-18] MEDS: fluconazole 100mg tablet PO SCH (09:09)
[2018-08-18] MEDS ORDERED: LIDOcaine 1%/PF 5ML 10 MG/ML VIAL ONE (10:25)
[2018-08-18] MEDS ORDERED: magnesium 2GM in 50ml NS 50 ML IV PRN (13:55)
[2018-08-18] MEDS ORDERED: potassium Cl 20 mEq SR tablet PO PRN (13:55)
[2018-08-18] MEDS ORDERED: potassium Cl 40MEQ/NS 500ml 500 ML IV PRN ×2 (13:55)
[2018-08-18] MEDS ORDERED: magnesium 4gm in 100ml NS 100 ML IV PRN (13:55)
[2018-08-18] MEDS: magnesium Cl slow-release 64mg tablet PO PRN ×2 (14:07→19:52)
--- NOTE | 2018-08-18 16:58 | NUR ---
IR team to bedside scanned for paracentesis no free fluid seen, Nurse informed.
--- NOTE | 2018-08-18 17:25 | NUR ---
Dressing to abdomen changed x2 saturated with serosang drainage. Patient demanding at times , not happy about abdomen draining fluid. Much time spent with patient meeting his many requests , patient seen by Dr Pavon and DR pulido
[2018-08-18 18:00] VITALS: BP 121/71
--- NOTE | 2018-08-18 18:30 | NUR ---
Midline dressing saturated. Pt req shower. Removed dressing and left open to air with a towel while pt being prepped for shower.
--- NOTE | 2018-08-18 18:44 | NUR ---
Problems reprioritized. Patient report given, questions answered & plan of care reviewed with Khushbu HANEY.
--- NOTE | 2018-08-18 21:00 | NUR ---
Pt showered and splint on right foot saturated. Discussed with Jun who stated to call the actuarial technician operations and maintenance technican. actuarial technician notified. As we have no xray of area, she was unable to state needs. However, agreed to assess. Jun notified who ordered stat xray. Xray taken at time of orthodontic laboratory technician arrival. Stated no sign of fracture. Placed a walking boot on right foot.
--- NOTE | 2018-08-18 21:15 | NUR ---
Pt was up to restroom and felt a pop on abdomen. Preston to upper portion of midline still intact but beginning to dehiss. Vincent notified. Ordered CT with oral contrast for AM and for patient to stay in bed. Patient made aware. Patient shows signs of anxiety. He asked "so I'm okay, this is not an emergency?l" I advised that it is not an emergency and the surgeon will use the CT to decide if any further treatment is necessary. Advised of the oral contrast and that he will be NPO now at the time of administration. Patient was very unhappy and stated he did not understand why he is unable to have anything to eat or drink. Advised it would interfere with the contrast for the CT. Patient continued to complain stating he doesnt understand and wanted to eat prior to taking the contrast. Reminded him that he had just has a jello, applesauce, and yogurt only a few moments before. Continued to make comments such as "now I wont be able to have anything to eat for the next two days" and "what time will the MD be in, I wont hear any results until tomorrow night", and "I always hear the same story from this place, never any results".
[2018-08-18] MEDS: diatr meglu/diatrizoate 30ml oral sol.-(3 dose) bottle PO SCH (23:10)
[2018-08-19] VITALS: BP 120/71
--- NOTE | 2018-08-19 01:02 | NUR ---
Called RT to ask whether pt can resume 0200 lactulose and pain meds due to PO contrast order for CT in abdomen. RT confirmed these medications are okay to give.
--- NOTE | 2018-08-19 01:05 | NUR ---
Patient sleeping. Dressing CDI.
[2018-08-19] MEDS: lactulose 20gm/30ml cup PO SCH ×4 (01:46→19:09)
[2018-08-19] MEDS: oxyCODONE/APAP 10/325mg tablet PO PRN ×4 (01:46→20:01)
--- NOTE | 2018-08-19 01:51 | NUR ---
Pt wants surgeon to be called at 7am prior to his CT skin.
--- NOTE | 2018-08-19 01:52 | NUR ---
Pt wants MD to be called prior to CT scan. Advised the MD is aware of his situation and will not be called. Further advised he will be updated tomorrow after the surgeon has looked over his CT scan. Pt angry at time cannot be provided for the CT scan or the MD notification.
--- NOTE | 2018-08-19 03:22 | NUR ---
Dressing saturated; changed.
[2018-08-19 06:36] LABS: BASOPHILS % (AUTO) 0.9 % (0-1); EOSINOPHILS % (AUTO) 1.7 % (0-6); HEMATOCRIT 24.8 % (42.0-52.0); HEMOGLOBIN 8.1 g/dl (14.0-17.9); LYMPHOCYTES # (AUTO) 0.3 X10'3 (1.1-4.8); LYMPHOCYTES % (AUTO) 14.9 % (21-51); MEAN CORPUSCULAR HEMOGLOBIN 26.5 PG (27.0-31.0); MEAN CORPUSCULAR HGB CONC 32.6 g/dL (33.0-36.5); MEAN CORPUSCULAR VOLUME 81.3 FL (78-98); MEAN PLATELET VOLUME 8.4 FL (7.4-10.4); MONOCYTES # (AUTO) 0.3 X10'3 (0-0.9); MONOCYTES % (AUTO) 15.1 % (2-12); NEUTROPHILS # (AUTO) 1.3 X10'3 (1.8-7.7); NEUTROPHILS % (AUTO) 67.4 % (42-75); PLATELET COUNT 118 X10'3 (140-440); RED BLOOD COUNT 3.06 X10'6 (4.70-6.10); RED CELL DISTRIBUTION WIDTH 19.7 % (11.5-14.5); WHITE BLOOD COUNT 1.9 X10'3 (4.5-11.0)
--- NOTE | 2018-08-19 06:38 | NUR ---
Patient in room [facility]. I have received report from Khushbu Hua RN and had the opportunity to ask questions and assume patient care.
--- NOTE | 2018-08-19 06:39 | NUR ---
Problems reprioritized. Patient report given, questions answered & plan of care reviewed with MEDINA Arredondo.
[2018-08-19 06:47] LABS: ALANINE AMINOTRANSFERASE 15 U/L (12-78); ALBUMIN 1.4 G/DL (3.4-5.0); ALBUMIN/GLOBULIN RATIO 0.3 (1.1-1.5); ALKALINE PHOSPHATASE 150 IU/L (46-116); ANION GAP 4 (8-16); ASPARTATE AMINO TRANSFERASE 43 U/L (10-37); BILIRUBIN,TOTAL 1.4 MG/DL (0.1-1.0); BLOOD UREA NITROGEN 6 MG/DL (7-18); BUN/CREATININE RATIO 7.5 (5.4-32.0); CHLORIDE 103 MMOL/L (99-107); GLUCOSE 84 MG/DL (70-104); INR 1.5 INR; MAGNESIUM 1.4 MG/DL (1.5-2.4); PHOSPHORUS 4.3 MG/DL (2.3-4.5); POTASSIUM 3.7 MMOL/L (3.5-5.1); SODIUM 138 MMOL/L (135-145); TOTAL CARBON DIOXIDE 31.5 MMOL/L (24-32); TOTAL PROTEIN 5.9 G/DL (6.4-8.2); eGFR > 90 ML/MIN
[2018-08-19] MEDS ORDERED: diatr meglu/diatrizoate 30ml oral sol.-(3 dose) bottle PO SCH (07:00)
[2018-08-19 07:09] LABS: TOTAL CELLS COUNTED 100
[2018-08-19 07:10] LABS: ANISOCYTOSIS 2+; HYPOCHROMASIA 2+; PLATELET ESTIMATE NORMAL
[2018-08-19 07:11] LABS: ELLIPTOCYTES FEW; LARGE PLATELETS FEW; SCHISTOCYTES FEW
[2018-08-19] MEDS: magnesium Cl slow-release 64mg tablet PO PRN ×2 (07:25→19:58)
[2018-08-19] MEDS: thiamine 100mg tablet PO SCH (07:26)
[2018-08-19] MEDS: lactobacillus rhamnosus 10,000 MMU CELLS/CAPSULE PO SCH ×2 (07:26→19:09)
[2018-08-19] MEDS: pantoprazole 40mg Tablet.DR PO SCH ×2 (07:26→19:09)
[2018-08-19] MEDS: furosemide 40mg tablet PO SCH ×2 (07:26→19:09)
[2018-08-19] MEDS: folic acid 1mg tablet PO SCH (07:26)
[2018-08-19] MEDS: multivitamins, therapeutics tablet PO SCH (07:27)
[2018-08-19] MEDS: enoxaparin 40mg/0.4ml syringe SUBCUT SCH (07:29)
[2018-08-19] MEDS: diatr meglu/diatrizoate 30ml oral sol.-(3 dose) bottle PO SCH (07:32)
[2018-08-19] MEDS: amox tr/potassium clavulanate 875/125mg TAB PO SCH ×2 (07:35→18:06)
[2018-08-19] MEDS: fluconazole 100mg tablet PO SCH (07:44)
[2018-08-19] MEDS: methylnaltrexone br 12mg/0.6ml inj***SubQ only SQ SCH (07:50)
[2018-08-19] MEDS: rifaximin 550mg tablet PO SCH ×2 (07:52→19:09)
[2018-08-19] MEDS: K, MAG and/or Phos replacement - Verify level? MC SCH (07:55)
[2018-08-19] MEDS: docusate sod 100mg capsule PO SCH ×2 (07:56→19:12)
[2018-08-19] MEDS: spironolactone 25 MG tablet PO SCH ×3 (07:56→20:45)
[2018-08-19 08:00] VITALS: BP 103/59
[2018-08-19] MEDS ORDERED: diatr meglu/diatrizoate 30ml oral sol.-(3 dose) bottle PO ONE (11:15)
[2018-08-19 11:50] VITALS: BP 118/65
[2018-08-19 12:00] VITALS: BP 108/63
--- NOTE | 2018-08-19 15:03 | NUR ---
Dr. Kaur rounded on pt. stated CT was reviewed with no surgery planned.
[2018-08-19 18:00] VITALS: BP 119/65
--- NOTE | 2018-08-19 18:30 | NUR ---
Patient in room [facility]. I have received report from Karena HANEY and had the opportunity to ask questions and assume patient care.
--- NOTE | 2018-08-19 18:50 | NUR ---
Problems reprioritized. Patient report given, questions answered & plan of care reviewed with MEDINA Herrmann.
[2018-08-20] VITALS: BP 96/56
[2018-08-20] MEDS: lactulose 20gm/30ml cup PO SCH ×4 (02:02→19:34)
[2018-08-20] MEDS: oxyCODONE/APAP 10/325mg tablet PO PRN ×4 (02:04→20:52)
[2018-08-20 05:53] LABS: POTASSIUM 3.8 MMOL/L (3.5-5.1)
--- NOTE | 2018-08-20 06:30 | NUR ---
Problems reprioritized. Patient report given, questions answered & plan of care reviewed with Karena RN.
--- NOTE | 2018-08-20 06:30 | NUR ---
Patient in room [facility]. I have received report from MEDINA Herrmann and had the opportunity to ask questions and assume patient care.
[2018-08-20 07:12] LABS: MAGNESIUM 1.4 MG/DL (1.5-2.4)
[2018-08-20] MEDS: lactobacillus rhamnosus 10,000 MMU CELLS/CAPSULE PO SCH ×2 (07:21→19:34)
[2018-08-20] MEDS: rifaximin 550mg tablet PO SCH ×2 (07:21→19:34)
[2018-08-20] MEDS: folic acid 1mg tablet PO SCH (07:21)
[2018-08-20] MEDS: multivitamins, therapeutics tablet PO SCH (07:21)
[2018-08-20] MEDS: thiamine 100mg tablet PO SCH (07:21)
[2018-08-20] MEDS: pantoprazole 40mg Tablet.DR PO SCH ×2 (07:21→19:34)
[2018-08-20] MEDS: docusate sod 100mg capsule PO SCH ×2 (07:23→20:00)
[2018-08-20] MEDS: enoxaparin 40mg/0.4ml syringe SUBCUT SCH (07:23)
[2018-08-20] MEDS: furosemide 40mg tablet PO SCH ×2 (07:24→19:34)
[2018-08-20] MEDS: spironolactone 25 MG tablet PO SCH ×3 (07:24→20:41)
[2018-08-20 08:00] VITALS: BP 104/57
[2018-08-20] MEDS: K, MAG and/or Phos replacement - Verify level? MC SCH (08:00)
[2018-08-20] MEDS: amox tr/potassium clavulanate 875/125mg TAB PO SCH ×2 (08:33→17:53)
[2018-08-20] MEDS: magnesium Cl slow-release 64mg tablet PO PRN (10:09)
[2018-08-20 12:00] VITALS: BP 105/65
--- NOTE | 2018-08-20 14:50 | NUR ---
Patient requesting pain medication. Upon entering patient's room with pain medication, patient was sleeping. patient woke up and stated "do you agree it's 1450; you're late on my pain medications," explained to patient that his pain medication is not scheduled, but as needed, and per patient request.
[2018-08-20 18:00] VITALS: BP 120/76
--- NOTE | 2018-08-20 18:27 | NUR ---
Problems reprioritized. Patient report given, questions answered & plan of care reviewed with MEDINA Herrmann.
--- NOTE | 2018-08-20 18:29 | NUR ---
Patient in room [facility]. I have received report from Karena HANEY and had the opportunity to ask questions and assume patient care.
[2018-08-21] VITALS: BP 96/60
[2018-08-21] MEDS: lactulose 20gm/30ml cup PO SCH ×4 (02:53→20:28)
[2018-08-21] MEDS: oxyCODONE/APAP 10/325mg tablet PO PRN ×4 (02:55→21:27)
--- NOTE | 2018-08-21 06:29 | NUR ---
Patient in room [facility]. I have received report from MEDINA Herrmann and had the opportunity to ask questions and assume patient care.
--- NOTE | 2018-08-21 06:33 | NUR ---
Problems reprioritized. Patient report given, questions answered & plan of care reviewed with Elena HANEY.
[2018-08-21 08:00] VITALS: BP 106/52
[2018-08-21] MEDS: spironolactone 25 MG tablet PO SCH ×2 (08:00→12:45)
[2018-08-21] MEDS: K, MAG and/or Phos replacement - Verify level? MC SCH (08:00)
[2018-08-21] MEDS: docusate sod 100mg capsule PO SCH (08:00)
[2018-08-21] MEDS: methylnaltrexone br 12mg/0.6ml inj***SubQ only SQ SCH (08:00)
[2018-08-21] MEDS: thiamine 100mg tablet PO SCH (08:24)
[2018-08-21] MEDS: rifaximin 550mg tablet PO SCH ×2 (08:24→20:27)
[2018-08-21] MEDS: furosemide 40mg tablet PO SCH ×2 (08:24→20:27)
[2018-08-21] MEDS: folic acid 1mg tablet PO SCH (08:24)
[2018-08-21] MEDS: multivitamins, therapeutics tablet PO SCH (08:24)
[2018-08-21] MEDS: pantoprazole 40mg Tablet.DR PO SCH ×2 (08:24→20:28)
[2018-08-21] MEDS: amox tr/potassium clavulanate 875/125mg TAB PO SCH ×2 (08:24→17:33)
[2018-08-21] MEDS: lactobacillus rhamnosus 10,000 MMU CELLS/CAPSULE PO SCH ×2 (08:24→20:27)
[2018-08-21] MEDS: enoxaparin 40mg/0.4ml syringe SUBCUT SCH (08:25)
[2018-08-21] MEDS: potassium Cl 20 mEq SR tablet PO PRN ×2 (08:29→13:48)
[2018-08-21 10:44] LABS: BASOPHILS % (AUTO) 1.6 % (0-1); EOSINOPHILS % (AUTO) 2.8 % (0-6); HEMATOCRIT 24.6 % (42.0-52.0); LYMPHOCYTES # (AUTO) 0.3 X10'3 (1.1-4.8); LYMPHOCYTES % (AUTO) 15.1 % (21-51); MEAN CORPUSCULAR HEMOGLOBIN 26.7 PG (27.0-31.0); MEAN CORPUSCULAR HGB CONC 32.5 g/dL (33.0-36.5); MEAN CORPUSCULAR VOLUME 82.2 FL (78-98); MEAN PLATELET VOLUME 7.9 FL (7.4-10.4); MONOCYTES # (AUTO) 0.3 X10'3 (0-0.9); MONOCYTES % (AUTO) 14.9 % (2-12); NEUTROPHILS # (AUTO) 1.2 X10'3 (1.8-7.7); NEUTROPHILS % (AUTO) 65.6 % (42-75); PLATELET COUNT 115 X10'3 (140-440); WHITE BLOOD COUNT 1.8 X10'3 (4.5-11.0)
[2018-08-21 10:58] LABS: ALANINE AMINOTRANSFERASE 18 U/L (12-78); ALBUMIN 1.3 G/DL (3.4-5.0); ALBUMIN/GLOBULIN RATIO 0.3 (1.1-1.5); ALKALINE PHOSPHATASE 163 IU/L (46-116); ANION GAP 4 (8-16); ASPARTATE AMINO TRANSFERASE 54 U/L (10-37); BLOOD UREA NITROGEN 4 MG/DL (7-18); BUN/CREATININE RATIO 4.9 (5.4-32.0); CALCIUM 7.7 MG/DL (8.5-10.1); CHLORIDE 102 MMOL/L (99-107); CREATININE 0.82 MG/DL (0.60-1.10); GLUCOSE 137 MG/DL (70-104); MAGNESIUM 1.3 MG/DL (1.5-2.4); POTASSIUM 3.5 MMOL/L (3.5-5.1); SODIUM 137 MMOL/L (135-145); TOTAL CARBON DIOXIDE 31.3 MMOL/L (24-32); TOTAL PROTEIN 5.9 G/DL (6.4-8.2); eGFR > 90 ML/MIN
[2018-08-21 11:19] LABS: PLATELET ESTIMATE DECREASED; TOTAL CELLS COUNTED 100
[2018-08-21 11:20] LABS: ANISOCYTOSIS 2+
[2018-08-21 11:21] LABS: HYPOCHROMASIA 2+; POLYCHROMASIA 1+; ROULEAUX 1+; TARGET CELLS FEW
[2018-08-21 11:46] VITALS: BP 101/64
[2018-08-21] MEDS: magnesium Cl slow-release 64mg tablet PO PRN ×2 (13:47→21:25)
[2018-08-21 18:00] VITALS: BP 120/70
--- NOTE | 2018-08-21 18:14 | NUR ---
Problems reprioritized. Patient report given, questions answered & plan of care reviewed with MEDINA Herrmann.
--- NOTE | 2018-08-21 18:30 | NUR ---
Patient in room [facility]. I have received report from Elena HANEY and had the opportunity to ask questions and assume patient care.
[2018-08-21] MEDS ORDERED: magnesium 2GM in 50ml NS 50 ML IV PRN (20:40)
[2018-08-21] MEDS ORDERED: potassium Cl 20 mEq SR tablet PO PRN (20:40)
[2018-08-21] MEDS ORDERED: potassium Cl 40MEQ/NS 500ml 500 ML IV PRN ×2 (20:40)
[2018-08-21] MEDS ORDERED: magnesium 4gm in 100ml NS 100 ML IV PRN (20:40)
[2018-08-22] VITALS: BP 127/73
[2018-08-22] MEDS: lactulose 20gm/30ml cup PO SCH ×4 (01:05→20:41)
[2018-08-22] MEDS: mag hydrox/Alum hydrox/simeth 30ml oral suspension PO PRN (03:04)
[2018-08-22] MEDS: oxyCODONE/APAP 10/325mg tablet PO PRN ×3 (04:39→17:23)
--- NOTE | 2018-08-22 06:11 | NUR ---
Patient in room [facility]. I have received report from MEDINA Herrmann and had the opportunity to ask questions and assume patient care.
--- NOTE | 2018-08-22 06:12 | NUR ---
Problems reprioritized. Patient report given, questions answered & plan of care reviewed with Elena HANEY.
[2018-08-22 07:30] VITALS: BP 110/51
[2018-08-22] MEDS: K, MAG and/or Phos replacement - Verify level? MC SCH (08:00)
[2018-08-22] MEDS: amox tr/potassium clavulanate 875/125mg TAB PO SCH ×2 (08:23→17:17)
[2018-08-22] MEDS: multivitamins, therapeutics tablet PO SCH (08:23)
[2018-08-22] MEDS: rifaximin 550mg tablet PO SCH ×2 (08:24→20:41)
[2018-08-22] MEDS: lactobacillus rhamnosus 10,000 MMU CELLS/CAPSULE PO SCH ×2 (08:24→20:41)
[2018-08-22] MEDS: furosemide 40mg tablet PO SCH ×2 (08:24→20:41)
[2018-08-22] MEDS: pantoprazole 40mg Tablet.DR PO SCH ×2 (08:24→20:41)
[2018-08-22] MEDS: folic acid 1mg tablet PO SCH (08:24)
[2018-08-22] MEDS: thiamine 100mg tablet PO SCH (08:24)
[2018-08-22] MEDS: potassium bicarbonate/cit acid 25mEq tablet.effervescent PO SCH (08:25)
[2018-08-22] MEDS: enoxaparin 40mg/0.4ml syringe SUBCUT SCH (08:25)
[2018-08-22 10:16] LABS: BASOPHILS % (AUTO) 2.4 % (0-1); EOSINOPHILS # (AUTO) 0.1 X10'3 (0-0.9); EOSINOPHILS % (AUTO) 3.4 % (0-6); HEMATOCRIT 24.8 % (42.0-52.0); LYMPHOCYTES # (AUTO) 0.3 X10'3 (1.1-4.8); LYMPHOCYTES % (AUTO) 15.3 % (21-51); MEAN CORPUSCULAR HEMOGLOBIN 26.3 PG (27.0-31.0); MEAN CORPUSCULAR HGB CONC 32.2 g/dL (33.0-36.5); MEAN CORPUSCULAR VOLUME 81.8 FL (78-98); MEAN PLATELET VOLUME 7.8 FL (7.4-10.4); MONOCYTES # (AUTO) 0.3 X10'3 (0-0.9); MONOCYTES % (AUTO) 14.1 % (2-12); NEUTROPHILS # (AUTO) 1.2 X10'3 (1.8-7.7); NEUTROPHILS % (AUTO) 64.8 % (42-75); PLATELET COUNT 113 X10'3 (140-440); RED BLOOD COUNT 3.04 X10'6 (4.70-6.10); RED CELL DISTRIBUTION WIDTH 20.1 % (11.5-14.5); WHITE BLOOD COUNT 1.8 X10'3 (4.5-11.0)
[2018-08-22 10:29] LABS: ALANINE AMINOTRANSFERASE 27 U/L (12-78); ALBUMIN 1.3 G/DL (3.4-5.0); ALBUMIN/GLOBULIN RATIO 0.3 (1.1-1.5); ALKALINE PHOSPHATASE 238 IU/L (46-116); ANION GAP 6 (8-16); ASPARTATE AMINO TRANSFERASE 82 U/L (10-37); BILIRUBIN,TOTAL 1.3 MG/DL (0.1-1.0); BLOOD UREA NITROGEN 2 MG/DL (7-18); BUN/CREATININE RATIO 2.5 (5.4-32.0); CALCIUM 7.6 MG/DL (8.5-10.1); CHLORIDE 101 MMOL/L (99-107); CREATININE 0.81 MG/DL (0.60-1.10); GLUCOSE 152 MG/DL (70-104); MAGNESIUM 1.4 MG/DL (1.5-2.4); POTASSIUM 3.4 MMOL/L (3.5-5.1); SODIUM 137 MMOL/L (135-145); TOTAL CARBON DIOXIDE 29.7 MMOL/L (24-32); TOTAL PROTEIN 6.1 G/DL (6.4-8.2); eGFR > 90 ML/MIN
[2018-08-22 10:39] LABS: ANISOCYTOSIS 3+; HYPOCHROMASIA 1+; MICROCYTOSIS 1+; PLATELET ESTIMATE DECREASED; TOTAL CELLS COUNTED 100
[2018-08-22 10:40] LABS: POIKILOCYTOSIS FEW; POLYCHROMASIA 1+; ROULEAUX 1+
[2018-08-22] MEDS: magnesium Cl slow-release 64mg tablet PO PRN (11:34)
[2018-08-22] MEDS: potassium Cl 20 mEq SR tablet PO PRN ×2 (11:34→17:17)
[2018-08-22 11:56] VITALS: BP 116/67
--- NOTE | 2018-08-22 15:52 | NUR ---
reassessment: Pt PO 100% regular/fluid restricted diet meeting needs. LBM 08/21 large BM today but only small BM past 7 days likely resolving constipation. Pt refused relistor today. Abdominal pain present w/ ascites r/t cirrhosis per MD note. Will continue to monitor. Recommend: 1. continue regular/fluid restricted diet as medically indicated 2. Wt per rx Addendum: 08/22/18 at [address] Amended: Links added.
--- NOTE | 2018-08-22 16:24 | NUR ---
Notified by PT in ICU that pt was seen in hallway on second floor. They were asked to tell him to return to the surgical floor. I called ICU bridge to see if pt was still on second floor and was told he was sitting in hallway. I asked them to tell him to return to surgical floor. After a few minutes, I was notified that he was no longer sitting in the hallway. After looking in the patient's room, the pt was located sitting by the fish tank on the surgical floor. I explained to pt that he is free to ambulate, but he cannot leave the floor. Pt stated he understands. Will continue to monitor.
--- NOTE | 2018-08-22 18:21 | NUR ---
Problems reprioritized. Patient report given, questions answered & plan of care reviewed with MEDINA Sánchez.
[2018-08-22 20:00] VITALS: BP 117/71
[2018-08-22] MEDS: ondansetron 4mg rapidly disintigrating tab PO PRN (20:45)
--- NOTE | 2018-08-22 22:31 | NUR ---
Patient in room [facility]. I have received report from MEDINA Parker and had the opportunity to ask questions and assume patient care. Addendum: 08/22/18 at 2238 by Princess Wu RN Amended: Links added.
[2018-08-23] VITALS: BP 111/60
[2018-08-23] MEDS: lactulose 20gm/30ml cup PO SCH ×4 (01:55→20:31)
[2018-08-23] MEDS: oxyCODONE/APAP 10/325mg tablet PO PRN ×2 (01:58→18:04)
[2018-08-23 06:30] VITALS: BP 93/48
--- NOTE | 2018-08-23 06:30 | NUR ---
Patient in room [facility]. I have received report from MEDINA Sánchez and had the opportunity to ask questions and assume patient care.
--- NOTE | 2018-08-23 06:41 | NUR ---
Problems reprioritized. Patient report given, questions answered & plan of care reviewed with MEDINA Cochran. Addendum: 08/23/18 at 0641 by Princess Wu RN Amended: Links added.
[2018-08-23] MEDS: K, MAG and/or Phos replacement - Verify level? MC SCH (08:14)
[2018-08-23] MEDS: enoxaparin 40mg/0.4ml syringe SUBCUT SCH (09:48)
[2018-08-23] MEDS: pantoprazole 40mg Tablet.DR PO SCH ×2 (09:49→18:50)
[2018-08-23] MEDS: multivitamins, therapeutics tablet PO SCH (09:49)
[2018-08-23] MEDS: methylnaltrexone br 12mg/0.6ml inj***SubQ only SQ SCH (09:49)
[2018-08-23] MEDS: folic acid 1mg tablet PO SCH (09:49)
[2018-08-23] MEDS: furosemide 40mg tablet PO SCH ×2 (09:49→20:32)
[2018-08-23] MEDS: lactobacillus rhamnosus 10,000 MMU CELLS/CAPSULE PO SCH ×2 (09:50→20:31)
[2018-08-23] MEDS: amox tr/potassium clavulanate 875/125mg TAB PO SCH ×2 (09:50→17:36)
[2018-08-23] MEDS: potassium bicarbonate/cit acid 25mEq tablet.effervescent PO SCH (09:50)
[2018-08-23] MEDS: rifaximin 550mg tablet PO SCH ×2 (09:51→20:31)
[2018-08-23] MEDS: thiamine 100mg tablet PO SCH (09:51)
[2018-08-23] MEDS: magnesium Cl slow-release 64mg tablet PO PRN ×2 (09:52→20:32)
[2018-08-23 09:54] LABS: HEMATOCRIT 23.4 % (42.0-52.0); HEMOGLOBIN 7.6 g/dl (14.0-17.9); MEAN CORPUSCULAR HEMOGLOBIN 26.4 PG (27.0-31.0); MEAN CORPUSCULAR HGB CONC 32.3 g/dL (33.0-36.5); MEAN CORPUSCULAR VOLUME 81.6 FL (78-98); PLATELET COUNT 102 X10'3 (140-440); RED BLOOD COUNT 2.87 X10'6 (4.70-6.10); RED CELL DISTRIBUTION WIDTH 20.1 % (11.5-14.5); WHITE BLOOD COUNT 1.5 X10'3 (4.5-11.0)
[2018-08-23 10:04] LABS: ALANINE AMINOTRANSFERASE 24 U/L (12-78); ALBUMIN 1.3 G/DL (3.4-5.0); ALBUMIN/GLOBULIN RATIO 0.3 (1.1-1.5); ALKALINE PHOSPHATASE 231 IU/L (46-116); ANION GAP 5 (8-16); ASPARTATE AMINO TRANSFERASE 78 U/L (10-37); BILIRUBIN,TOTAL 1.2 MG/DL (0.1-1.0); BLOOD UREA NITROGEN 4 MG/DL (7-18); BUN/CREATININE RATIO 4.8 (5.4-32.0); CALCIUM 7.5 MG/DL (8.5-10.1); CHLORIDE 101 MMOL/L (99-107); CREATININE 0.83 MG/DL (0.60-1.10); GLUCOSE 152 MG/DL (70-104); MAGNESIUM 1.3 MG/DL (1.5-2.4); POTASSIUM 3.2 MMOL/L (3.5-5.1); SODIUM 135 MMOL/L (135-145); TOTAL CARBON DIOXIDE 29.4 MMOL/L (24-32); TOTAL PROTEIN 5.9 G/DL (6.4-8.2); eGFR > 90 ML/MIN
[2018-08-23] MEDS: potassium Cl 20 mEq SR tablet PO PRN ×3 (10:10→17:36)
[2018-08-23 11:17] LABS: ANISOCYTOSIS 3+; HYPOCHROMASIA 1+; LARGE PLATELETS FEW; PLATELET ESTIMATE DECREASED; TOTAL CELLS COUNTED 100
[2018-08-23 11:18] LABS: MICROCYTOSIS 1+
[2018-08-23 11:30] VITALS: BP 108/67
--- NOTE | 2018-08-23 18:10 | NUR ---
Problems reprioritized. Patient report given, questions answered & plan of care reviewed with MEDINA Sánchez.
[2018-08-23] MEDS: mag hydrox/Alum hydrox/simeth 30ml oral suspension PO PRN (18:47)
--- NOTE | 2018-08-23 19:19 | NUR ---
Patient in room [facility]. I have received report from MEDINA Cochran and had the opportunity to ask questions and assume patient care. Addendum: 08/23/18 at 1920 by Princess Wu RN Amended: Links added.
[2018-08-23 23:46] VITALS: BP 102/60
[2018-08-24] MEDS: lactulose 20gm/30ml cup PO SCH ×4 (01:48→19:25)
[2018-08-24 05:08] LABS: BASOPHILS % (AUTO) 0.9 % (0-1); EOSINOPHILS # (AUTO) 0.1 X10'3 (0-0.9); EOSINOPHILS % (AUTO) 2.4 % (0-6); HEMATOCRIT 25.8 % (42.0-52.0); HEMOGLOBIN 8.3 g/dl (14.0-17.9); LYMPHOCYTES # (AUTO) 0.3 X10'3 (1.1-4.8); MEAN CORPUSCULAR HEMOGLOBIN 26.1 PG (27.0-31.0); MEAN CORPUSCULAR HGB CONC 32.3 g/dL (33.0-36.5); MEAN CORPUSCULAR VOLUME 80.8 FL (78-98); MEAN PLATELET VOLUME 8.2 FL (7.4-10.4); MONOCYTES # (AUTO) 0.4 X10'3 (0-0.9); MONOCYTES % (AUTO) 16.8 % (2-12); NEUTROPHILS # (AUTO) 1.4 X10'3 (1.8-7.7); NEUTROPHILS % (AUTO) 65.9 % (42-75); PLATELET COUNT 121 X10'3 (140-440); RED BLOOD COUNT 3.19 X10'6 (4.70-6.10); RED CELL DISTRIBUTION WIDTH 19.7 % (11.5-14.5); WHITE BLOOD COUNT 2.1 X10'3 (4.5-11.0)
[2018-08-24 05:32] LABS: ALANINE AMINOTRANSFERASE 34 U/L (12-78); ALBUMIN 1.4 G/DL (3.4-5.0); ALBUMIN/GLOBULIN RATIO 0.3 (1.1-1.5); ALKALINE PHOSPHATASE 295 IU/L (46-116); ANION GAP 5 (8-16); ASPARTATE AMINO TRANSFERASE 122 U/L (10-37); BLOOD UREA NITROGEN 5 MG/DL (7-18); BUN/CREATININE RATIO 6.1 (5.4-32.0); CALCIUM 7.5 MG/DL (8.5-10.1); CHLORIDE 99 MMOL/L (99-107); CREATININE 0.82 MG/DL (0.60-1.10); GLUCOSE 106 MG/DL (70-104); MAGNESIUM 1.5 MG/DL (1.5-2.4); POTASSIUM 3.4 MMOL/L (3.5-5.1); SODIUM 135 MMOL/L (135-145); TOTAL CARBON DIOXIDE 31.1 MMOL/L (24-32); TOTAL PROTEIN 6.5 G/DL (6.4-8.2); eGFR > 90 ML/MIN
--- NOTE | 2018-08-24 06:15 | NUR ---
Patient in room [facility]. I have received report from MEDINA Sánchez and had the opportunity to ask questions and assume patient care.
--- NOTE | 2018-08-24 06:15 | NUR ---
Problems reprioritized. Patient report given, questions answered & plan of care reviewed with MEDINA Thurston. Addendum: 08/24/18 at 0616 by Princess Wu RN Amended: Links added.
--- NOTE | 2018-08-24 06:17 | NUR ---
Problems reprioritized. Patient report given, questions answered & plan of care reviewed with MEDINA Thurston. Addendum: 08/24/18 at 0617 by Princess Wu RN Amended: Links added.
[2018-08-24 06:42] LABS: TOTAL CELLS COUNTED 100
[2018-08-24 06:43] LABS: ANISOCYTOSIS 2+; HYPOCHROMASIA 1+; PLATELET ESTIMATE DECREASED
[2018-08-24] MEDS: pantoprazole 40mg Tablet.DR PO SCH ×2 (07:37→19:25)
[2018-08-24] MEDS: thiamine 100mg tablet PO SCH (07:38)
[2018-08-24] MEDS: potassium Cl 20 mEq SR tablet PO PRN ×3 (07:38→19:25)
[2018-08-24] MEDS: lactobacillus rhamnosus 10,000 MMU CELLS/CAPSULE PO SCH ×2 (07:38→19:25)
[2018-08-24] MEDS: furosemide 40mg tablet PO SCH ×2 (07:38→19:25)
[2018-08-24] MEDS: rifaximin 550mg tablet PO SCH ×2 (07:38→19:25)
[2018-08-24] MEDS: multivitamins, therapeutics tablet PO SCH (07:38)
[2018-08-24] MEDS: amox tr/potassium clavulanate 875/125mg TAB PO SCH ×2 (07:38→17:34)
[2018-08-24] MEDS: folic acid 1mg tablet PO SCH (07:38)
[2018-08-24] MEDS: enoxaparin 40mg/0.4ml syringe SUBCUT SCH (07:39)
[2018-08-24] MEDS: potassium bicarbonate/cit acid 25mEq tablet.effervescent PO SCH (07:39)
[2018-08-24 08:00] VITALS: BP 102/61
[2018-08-24] MEDS: K, MAG and/or Phos replacement - Verify level? MC SCH (08:00)
[2018-08-24] MEDS: ondansetron 4mg rapidly disintigrating tab PO PRN (10:54)
[2018-08-24 12:00] VITALS: BP 104/65
[2018-08-24] MEDS: oxyCODONE/APAP 10/325mg tablet PO PRN ×2 (13:27→19:28)
--- NOTE | 2018-08-24 18:43 | NUR ---
Patient in room [facility]. I have received report from MEDINA Thurston and had the opportunity to ask questions and assume patient care.
--- NOTE | 2018-08-24 18:46 | NUR ---
Problems reprioritized. Patient report given, questions answered & plan of care reviewed with MEDINA Segura.
[2018-08-24 20:00] VITALS: BP 110/61
[2018-08-25] VITALS: BP 118/66
[2018-08-25] MEDS: lactulose 20gm/30ml cup PO SCH ×4 (01:09→20:58)
[2018-08-25] MEDS: oxyCODONE/APAP 10/325mg tablet PO PRN ×4 (01:09→20:58)
--- NOTE | 2018-08-25 06:50 | NUR ---
Patient in room [facility]. I have received report from MEDINA Segura and had the opportunity to ask questions and assume patient care.
--- NOTE | 2018-08-25 06:57 | NUR ---
Problems reprioritized. Patient report given, questions answered & plan of care reviewed with MEDINA Luna.
[2018-08-25 07:39] VITALS: BP 97/60
[2018-08-25] MEDS: pantoprazole 40mg Tablet.DR PO SCH ×2 (08:24→20:58)
[2018-08-25] MEDS: furosemide 40mg tablet PO SCH ×2 (08:24→20:58)
[2018-08-25] MEDS: folic acid 1mg tablet PO SCH (08:24)
[2018-08-25] MEDS: multivitamins, therapeutics tablet PO SCH (08:24)
[2018-08-25] MEDS: lactobacillus rhamnosus 10,000 MMU CELLS/CAPSULE PO SCH ×2 (08:24→20:58)
[2018-08-25] MEDS: methylnaltrexone br 12mg/0.6ml inj***SubQ only SQ SCH (08:30)
[2018-08-25] MEDS: enoxaparin 40mg/0.4ml syringe SUBCUT SCH (08:31)
[2018-08-25] MEDS: potassium bicarbonate/cit acid 25mEq tablet.effervescent PO SCH (08:43)
[2018-08-25] MEDS: rifaximin 550mg tablet PO SCH ×2 (08:47→20:58)
[2018-08-25] MEDS: amox tr/potassium clavulanate 875/125mg TAB PO SCH ×2 (08:49→16:39)
[2018-08-25] MEDS: thiamine 100mg tablet PO SCH (08:49)
[2018-08-25] MEDS: K, MAG and/or Phos replacement - Verify level? MC SCH (08:53)
--- NOTE | 2018-08-25 08:53 | NUR ---
Labs K=3.4, Mg= 1.5 from 08/25. No new lab order currently.
--- NOTE | 2018-08-25 11:10 | NUR ---
Patient in room [facility]. I have received report from MEDINA Luna and had the opportunity to ask questions and assume patient care.
--- NOTE | 2018-08-25 11:15 | NUR ---
Patient report given, questions answered & pt care reviewed with MEDINA Delcid.
[2018-08-25 11:30] VITALS: BP 91/53
[2018-08-25 12:23] LABS: BASOPHILS % (AUTO) 1.1 % (0-1); HEMATOCRIT 25.5 % (42.0-52.0); HEMOGLOBIN 8.3 g/dl (14.0-17.9); LYMPHOCYTES # (AUTO) 0.3 X10'3 (1.1-4.8); LYMPHOCYTES % (AUTO) 15.5 % (21-51); MEAN CORPUSCULAR HEMOGLOBIN 26.4 PG (27.0-31.0); MEAN CORPUSCULAR HGB CONC 32.6 g/dL (33.0-36.5); MEAN CORPUSCULAR VOLUME 81.1 FL (78-98); MEAN PLATELET VOLUME 7.8 FL (7.4-10.4); MONOCYTES # (AUTO) 0.3 X10'3 (0-0.9); MONOCYTES % (AUTO) 15.8 % (2-12); NEUTROPHILS # (AUTO) 1.2 X10'3 (1.8-7.7); NEUTROPHILS % (AUTO) 65.6 % (42-75); PLATELET COUNT 110 X10'3 (140-440); RED BLOOD COUNT 3.14 X10'6 (4.70-6.10); WHITE BLOOD COUNT 1.8 X10'3 (4.5-11.0)
[2018-08-25 12:37] LABS: ALANINE AMINOTRANSFERASE 32 U/L (12-78); ALBUMIN 1.4 G/DL (3.4-5.0); ALBUMIN/GLOBULIN RATIO 0.3 (1.1-1.5); ALKALINE PHOSPHATASE 267 IU/L (46-116); ANION GAP 3 (8-16); ASPARTATE AMINO TRANSFERASE 93 U/L (10-37); BILIRUBIN,TOTAL 1.2 MG/DL (0.1-1.0); BLOOD UREA NITROGEN 7 MG/DL (7-18); BUN/CREATININE RATIO 6.9 (5.4-32.0); CALCIUM 7.8 MG/DL (8.5-10.1); CHLORIDE 102 MMOL/L (99-107); CREATININE 1.01 MG/DL (0.60-1.10); GLUCOSE 162 MG/DL (70-104); MAGNESIUM 1.5 MG/DL (1.5-2.4); POTASSIUM 3.7 MMOL/L (3.5-5.1); SODIUM 135 MMOL/L (135-145); TOTAL CARBON DIOXIDE 29.7 MMOL/L (24-32); TOTAL PROTEIN 6.5 G/DL (6.4-8.2); eGFR 80 ML/MIN
[2018-08-25 14:17] LABS: ANISOCYTOSIS 2+; LARGE PLATELETS FEW; PLATELET ESTIMATE DECREASED; TOTAL CELLS COUNTED 100
[2018-08-25 14:18] LABS: HYPOCHROMASIA 1+
--- NOTE | 2018-08-25 18:30 | NUR ---
Patient in room [facility]. I have received report from MEDINA Delcid and had the opportunity to ask questions and assume patient care. Addendum: 08/25/18 at 2017 by Jess Lisa RN Amended: Links added.
--- NOTE | 2018-08-25 18:44 | NUR ---
Problems reprioritized. Patient report given, questions answered & plan of care reviewed with MEDINA Bashir.
[2018-08-25 19:00] VITALS: BP_SYST 112; BP_SYST 136; BP_DIAS 62; BP_DIAS 93
[2018-08-26 00:32] VITALS: BP 107/64
[2018-08-26] MEDS: lactulose 20gm/30ml cup PO SCH ×4 (02:37→22:23)
[2018-08-26] MEDS: oxyCODONE/APAP 10/325mg tablet PO PRN ×3 (02:37→17:55)
--- NOTE | 2018-08-26 06:22 | NUR ---
Patient in room [facility]. I have received report from MEDINA Kent and had the opportunity to ask questions and assume patient care.
[2018-08-26 07:00] VITALS: BP 103/53
[2018-08-26] MEDS: K, MAG and/or Phos replacement - Verify level? MC SCH (08:00)
[2018-08-26] MEDS: enoxaparin 40mg/0.4ml syringe SUBCUT SCH (08:00)
[2018-08-26] MEDS: amox tr/potassium clavulanate 875/125mg TAB PO SCH ×2 (08:35→17:52)
[2018-08-26] MEDS: rifaximin 550mg tablet PO SCH ×2 (08:35→22:23)
[2018-08-26] MEDS: lactobacillus rhamnosus 10,000 MMU CELLS/CAPSULE PO SCH ×2 (08:35→22:23)
[2018-08-26] MEDS: pantoprazole 40mg Tablet.DR PO SCH ×2 (08:35→22:23)
[2018-08-26] MEDS: furosemide 40mg tablet PO SCH ×2 (08:35→22:23)
[2018-08-26] MEDS: folic acid 1mg tablet PO SCH (08:35)
[2018-08-26] MEDS: thiamine 100mg tablet PO SCH (08:35)
[2018-08-26] MEDS: multivitamins, therapeutics tablet PO SCH (08:36)
[2018-08-26] MEDS: potassium bicarbonate/cit acid 25mEq tablet.effervescent PO SCH (08:41)
--- NOTE | 2018-08-26 10:46 | NUR ---
Reassessment: Noted that patient's documented weight with great fluctuations, likely r/t changes in fluid status with multiple diuretics and possibly r/t bed scale errors as patient's weight had a 10 kg change in two days. PO intake fluctuates with average 75-100% likely meeting nutrient needs. Abdominal discomfort improving and pt tolerating food per MD notes. Perforated duodenal ulcer has been repaired and drainage from his incision has improved with diuresis per MD notes. LB 08/26. Will continue to follow. Recommend: 1. continue regular/fluid restricted diet as medically indicated 2. Wt per rx Addendum: 08/26/18 at [address] Amended: Links added.
[2018-08-26 14:00] VITALS: BP 104/59
--- NOTE | 2018-08-26 14:22 | NUR ---
RECOMMEND: 1. Daily bathing with no rinse skin cleanser. 2. Cream/Lotion to be applied to skin after bathing. 3. Wound VAC to ABD incisional line. Settings 75mmHg, low, cont. Routine dressing changes Addendum: 08/26/18 at 1429 by Tracy Centeno RN Amended: Links added.
[2018-08-26 18:00] VITALS: BP 111/58
--- NOTE | 2018-08-26 18:33 | NUR ---
Problems reprioritized. Patient report given, questions answered & plan of care reviewed with MEDINA Dong.
--- NOTE | 2018-08-26 18:34 | NUR ---
Patient in room [facility]. I have received report from MEDINA Parker and had the opportunity to ask questions and assume patient care.
[2018-08-27] VITALS: BP 109/65
[2018-08-27] MEDS: oxyCODONE/APAP 10/325mg tablet PO PRN ×4 (00:08→21:29)
[2018-08-27] MEDS: lactulose 20gm/30ml cup PO SCH ×4 (02:00→21:26)
--- NOTE | 2018-08-27 06:29 | NUR ---
Problems reprioritized. Patient report given, questions answered & plan of care reviewed with MEDINA Parker.
--- NOTE | 2018-08-27 06:32 | NUR ---
Patient in room [facility]. I have received report from MEDINA Dong and had the opportunity to ask questions and assume patient care.
[2018-08-27 07:30] VITALS: BP 103/56
[2018-08-27] MEDS: potassium bicarbonate/cit acid 25mEq tablet.effervescent PO SCH ×2 (08:00→09:07)
[2018-08-27] MEDS: enoxaparin 40mg/0.4ml syringe SUBCUT SCH (08:00)
[2018-08-27] MEDS: methylnaltrexone br 12mg/0.6ml inj***SubQ only SQ SCH (08:00)
[2018-08-27] MEDS: multivitamins, therapeutics tablet PO SCH (09:06)
[2018-08-27] MEDS: amox tr/potassium clavulanate 875/125mg TAB PO SCH ×2 (09:06→16:49)
[2018-08-27] MEDS: rifaximin 550mg tablet PO SCH ×2 (09:06→21:26)
[2018-08-27] MEDS: thiamine 100mg tablet PO SCH (09:07)
[2018-08-27] MEDS: lactobacillus rhamnosus 10,000 MMU CELLS/CAPSULE PO SCH ×2 (09:07→21:26)
[2018-08-27] MEDS: furosemide 40mg tablet PO SCH ×2 (09:07→21:26)
[2018-08-27] MEDS: pantoprazole 40mg Tablet.DR PO SCH ×2 (09:07→21:26)
[2018-08-27] MEDS: folic acid 1mg tablet PO SCH (09:07)
[2018-08-27 12:00] VITALS: BP 105/60
[2018-08-27] MEDS: spironolactone 25 MG tablet PO SCH ×2 (13:00→21:00)
[2018-08-27 19:00] VITALS: BP 111/61
[2018-08-27] MEDS: K, MAG and/or Phos replacement - Verify level? MC SCH (19:02)
--- NOTE | 2018-08-27 19:02 | NUR ---
Problems reprioritized. Patient report given, questions answered & plan of care reviewed with MEDINA Wilson.
[2018-08-28] MEDS: lactulose 20gm/30ml cup PO SCH ×4 (03:24→19:42)
[2018-08-28] MEDS: oxyCODONE/APAP 10/325mg tablet PO PRN ×4 (03:25→21:50)
--- NOTE | 2018-08-28 06:00 | NUR ---
Pt and roommate arguing, and cursing at each other, Charge nurse in room, Security was called. Situation diffused. Addendum: 08/28/18 at 0617 by Katie Her RN Amended: Links added.
--- NOTE | 2018-08-28 06:10 | NUR ---
Patient in room [facility]. I have received report from MEDINA Wilson and had the opportunity to ask questions and assume patient care. Patient alert and oriented at this time. Call light and items of frequent use in reach of patient.
--- NOTE | 2018-08-28 06:16 | NUR ---
Problems reprioritized. Patient report given, questions answered & plan of care reviewed with Farhana HANEY. Addendum: 08/28/18 at 0617 by Katie Her RN Amended: Links added.
[2018-08-28 07:13] VITALS: BP 117/60
[2018-08-28] MEDS: enoxaparin 40mg/0.4ml syringe SUBCUT SCH (08:00)
[2018-08-28] MEDS: K, MAG and/or Phos replacement - Verify level? MC SCH (08:00)
[2018-08-28] MEDS: spironolactone 25 MG tablet PO SCH ×3 (08:00→20:57)
--- NOTE | 2018-08-28 08:45 | NUR ---
Went to give patient morning medications and to do a physical assessment. Patient stated that he does not want to take medications right now. Patient stated "bring my medications when you bring my pain medication". Patient pain medication is not available to be given until 924. Will reattempt to give medications and do a physical assessment at that time.
[2018-08-28] MEDS: lactobacillus rhamnosus 10,000 MMU CELLS/CAPSULE PO SCH ×2 (09:36→19:42)
[2018-08-28] MEDS: pantoprazole 40mg Tablet.DR PO SCH ×2 (09:37→19:42)
[2018-08-28] MEDS: potassium chloride 10mEq ER tablet PO SCH (09:37)
[2018-08-28] MEDS: multivitamins, therapeutics tablet PO SCH (09:37)
[2018-08-28] MEDS: folic acid 1mg tablet PO SCH (09:37)
[2018-08-28] MEDS: furosemide 40mg tablet PO SCH ×2 (09:37→19:42)
[2018-08-28] MEDS: amox tr/potassium clavulanate 875/125mg TAB PO SCH ×2 (09:38→17:52)
[2018-08-28] MEDS: thiamine 100mg tablet PO SCH (09:38)
[2018-08-28] MEDS: rifaximin 550mg tablet PO SCH ×2 (09:39→19:42)
[2018-08-28 11:39] VITALS: BP 94/50
[2018-08-28 18:00] VITALS: BP 104/58
--- NOTE | 2018-08-28 18:11 | NUR ---
Problems reprioritized. Patient report given, questions answered & plan of care reviewed with MEDINA Herrmann. Patient just finished eating dessert. Call light and items of frequent use in reach of patient at this time.
--- NOTE | 2018-08-28 18:30 | NUR ---
Patient in room [facility]. I have received report from Farhana HANEY and had the opportunity to ask questions and assume patient care.
[2018-08-29] VITALS: BP 107/70
[2018-08-29] MEDS: lactulose 20gm/30ml cup PO SCH ×4 (01:33→21:56)
[2018-08-29] MEDS: oxyCODONE/APAP 10/325mg tablet PO PRN ×4 (03:44→21:56)
--- NOTE | 2018-08-29 04:05 | NUR ---
Patient walked out to nursing station asking to speak with the charge nurse. Pt appeared very upset that "nurses and aides are so loud and my roommate is talking to himself". community aide explained to pt that this is a hospital and there is nothing we can do, and no free rooms to move him to. Pt expressed his discomposure to staff and went back to his bed without further incident.
[2018-08-29 05:33] LABS: BASOPHILS % (AUTO) 0.7 % (0-1); EOSINOPHILS % (AUTO) 2.8 % (0-6); HEMATOCRIT 22.4 % (42.0-52.0); HEMOGLOBIN 7.3 g/dl (14.0-17.9); LYMPHOCYTES # (AUTO) 0.3 X10'3 (1.1-4.8); LYMPHOCYTES % (AUTO) 18.6 % (21-51); MEAN CORPUSCULAR HEMOGLOBIN 26.6 PG (27.0-31.0); MEAN CORPUSCULAR HGB CONC 32.7 g/dL (33.0-36.5); MEAN CORPUSCULAR VOLUME 81.4 FL (78-98); MEAN PLATELET VOLUME 8.5 FL (7.4-10.4); MONOCYTES # (AUTO) 0.3 X10'3 (0-0.9); MONOCYTES % (AUTO) 18.9 % (2-12); PLATELET COUNT 83 X10'3 (140-440); RED BLOOD COUNT 2.75 X10'6 (4.70-6.10); RED CELL DISTRIBUTION WIDTH 20.1 % (11.5-14.5); WHITE BLOOD COUNT 1.6 X10'3 (4.5-11.0)
[2018-08-29 06:03] LABS: ALANINE AMINOTRANSFERASE 25 U/L (12-78); ALBUMIN 1.3 G/DL (3.4-5.0); ALBUMIN/GLOBULIN RATIO 0.3 (1.1-1.5); ALKALINE PHOSPHATASE 191 IU/L (46-116); ANION GAP 5 (8-16); ASPARTATE AMINO TRANSFERASE 64 U/L (10-37); BLOOD UREA NITROGEN 8 MG/DL (7-18); BUN/CREATININE RATIO 9.9 (5.4-32.0); CALCIUM 7.4 MG/DL (8.5-10.1); CHLORIDE 101 MMOL/L (99-107); CREATININE 0.81 MG/DL (0.60-1.10); GLUCOSE 126 MG/DL (70-104); SODIUM 136 MMOL/L (135-145); TOTAL PROTEIN 5.9 G/DL (6.4-8.2); eGFR > 90 ML/MIN
--- NOTE | 2018-08-29 06:20 | NUR ---
Patient in room [facility]. I have received report from MEDINA Herrmann and had the opportunity to ask questions and assume patient care. Patient sitting up in bed at this time. Discussed with patient what time his morning medications will be given to him. Patient does not want them if he is sleeping. Patient stated that the best time is to give him his medications during breakfast. Call light and items of frequent use in reach of patient.
[2018-08-29 06:23] LABS: TOTAL CELLS COUNTED 100
[2018-08-29 06:24] LABS: ANISOCYTOSIS 3+; HYPOCHROMASIA 1+; PLATELET ESTIMATE DECREASED; POLYCHROMASIA FEW
--- NOTE | 2018-08-29 06:30 | NUR ---
Problems reprioritized. Patient report given, questions answered & plan of care reviewed with Farhana HANEY.
[2018-08-29] MEDS ORDERED: potassium Cl 20 mEq SR tablet PO PRN (06:40)
[2018-08-29] MEDS ORDERED: POTASSIUM 40MEQ/500ML NS ***PERIPHERAL LINE REPLACE IV PRN (06:50)
[2018-08-29] MEDS: spironolactone 25 MG tablet PO SCH ×3 (07:03→21:00)
[2018-08-29] MEDS: enoxaparin 40mg/0.4ml syringe SUBCUT SCH (07:03)
[2018-08-29] MEDS: K, MAG and/or Phos replacement - Verify level? MC SCH (07:05)
[2018-08-29 07:39] VITALS: BP 105/65
[2018-08-29] MEDS: methylnaltrexone br 12mg/0.6ml inj***SubQ only SQ SCH (08:00)
--- NOTE | 2018-08-29 09:06 | NUR ---
Patient refusing to take morning medications until pain medications are able to be given. Pain medication is not due until 0945. Patient was educated on the importance of the time his medications are given, especially medications that he takes again later in the day. Patient does not care and stated, "either give me my pain medication early or you can bring my morning medication when the pain medication is due." Patient was told that pain medication can not be given early because it is an "as needed medication". Patient stated, "well they do it all the time". Patient was educated that we can not do that because it isn't safe to give pain medications early, and even if we could give it early the computer would not allow us to scan the medication. Patient said, "stop being such a square, well fine bring me my medications at 0945 then". Will attempt to bring patient his medications at 0945.
[2018-08-29 09:44] LABS: MAGNESIUM 1.4 MG/DL (1.5-2.4)
[2018-08-29] MEDS: lactobacillus rhamnosus 10,000 MMU CELLS/CAPSULE PO SCH ×2 (10:03→21:56)
[2018-08-29] MEDS: potassium Cl 20 mEq SR tablet PO PRN ×3 (10:03→21:58)
[2018-08-29] MEDS: furosemide 40mg tablet PO SCH ×2 (10:04→21:56)
[2018-08-29] MEDS: pantoprazole 40mg Tablet.DR PO SCH ×2 (10:04→21:57)
[2018-08-29] MEDS: potassium chloride 10mEq ER tablet PO SCH (10:04)
[2018-08-29] MEDS: multivitamins, therapeutics tablet PO SCH (10:04)
[2018-08-29] MEDS: folic acid 1mg tablet PO SCH (10:04)
[2018-08-29] MEDS: amox tr/potassium clavulanate 875/125mg TAB PO SCH ×2 (10:04→17:22)
[2018-08-29] MEDS: thiamine 100mg tablet PO SCH (10:04)
[2018-08-29] MEDS: rifaximin 550mg tablet PO SCH ×2 (10:16→21:57)
[2018-08-29 12:00] VITALS: BP 108/57
[2018-08-29] MEDS: magnesium Cl slow-release 64mg tablet PO PRN ×2 (12:58→21:58)
--- NOTE | 2018-08-29 18:25 | NUR ---
Problems reprioritized. Patient report given, questions answered & plan of care reviewed with MEDINA Solis .
--- NOTE | 2018-08-29 19:03 | NUR ---
Patient in room [facility]. I have received report from MEDINA Delcid and had the opportunity to ask questions and assume patient care. Addendum: 08/29/18 at 1906 by Princess Wu RN Amended: Links added.
[2018-08-29 19:26] VITALS: BP 116/67
[2018-08-29 23:21] VITALS: BP 101/66
[2018-08-30] MEDS: lactulose 20gm/30ml cup PO SCH ×4 (01:47→20:50)
[2018-08-30] MEDS: oxyCODONE/APAP 10/325mg tablet PO PRN ×3 (03:50→17:38)
--- NOTE | 2018-08-30 06:15 | NUR ---
Patient in room [facility]. I have received report from MEDINA Solis and had the opportunity to ask questions and assume patient care. Patient awake and alert at this time. Call light and items of frequent use in reach of patient at this time.
--- NOTE | 2018-08-30 06:22 | NUR ---
Problems reprioritized. Patient report given, questions answered & plan of care reviewed with MEDINA Delcid. Addendum: 08/30/18 at 0622 by Princess Wu RN Amended: Links added.
[2018-08-30] MEDS: spironolactone 25 MG tablet PO SCH ×3 (07:15→20:51)
[2018-08-30] MEDS: K, MAG and/or Phos replacement - Verify level? MC SCH (07:15)
[2018-08-30] MEDS: enoxaparin 40mg/0.4ml syringe SUBCUT SCH (07:16)
[2018-08-30 07:20] VITALS: BP 109/57
[2018-08-30] MEDS: lactobacillus rhamnosus 10,000 MMU CELLS/CAPSULE PO SCH ×2 (07:58→20:50)
[2018-08-30] MEDS: potassium chloride 10mEq ER tablet PO SCH (07:59)
[2018-08-30] MEDS: folic acid 1mg tablet PO SCH (07:59)
[2018-08-30] MEDS: multivitamins, therapeutics tablet PO SCH (08:00)
[2018-08-30] MEDS: pantoprazole 40mg Tablet.DR PO SCH ×2 (08:00→20:50)
[2018-08-30] MEDS: furosemide 40mg tablet PO SCH ×2 (08:00→20:50)
[2018-08-30] MEDS: thiamine 100mg tablet PO SCH (08:00)
[2018-08-30] MEDS: rifaximin 550mg tablet PO SCH ×2 (08:01→20:50)
[2018-08-30] MEDS: amox tr/potassium clavulanate 875/125mg TAB PO SCH ×2 (08:01→17:37)
[2018-08-30 11:00] VITALS: BP 98/50
--- NOTE | 2018-08-30 14:09 | NUR ---
WOUND VAC EDUCATION PROVIDED BY WOUND CARE 1. Patient instructed to call the Wound Center or their Home Health Agency immediately if: * They notice a change in the color or amount of the fluid in the canister. * Their wound looks more red than usual or has a foul smell. * The skin around their wound looks reddened or irritated. * The dressing feels loose or appears to be loose. * They experience any increase or changes in their pain. * The alarm will not turn off. 2. Patient instructed that they should not be disconnected from suction for more than 2 hours at a time. * If they are not able to get the suction back on, they need to remove the dressing and take all of the foam out of the wound. * Then moisten sterile gauze with normal saline and place on/in the wound. * Change the dressing once a day until arrangements have been made to replace the wound vac dressing. 3. Patient instructed to turn the wound vac machine OFF and call 911 or go to the ED immediately if their canister fills rapidly with blood. 4. If any of these occur while in the hospital tell a nurse immediately. Addendum: 08/30/18 at 1410 by Tracy Centeno RN Amended: Links added.
--- NOTE | 2018-08-30 18:12 | NUR ---
Problems reprioritized. Patient report given, questions answered & plan of care reviewed with MEDINA Solis.
[2018-08-30 20:00] VITALS: BP 108/60
[2018-08-31 00:23] VITALS: BP 100/57
[2018-08-31] MEDS: lactulose 20gm/30ml cup PO SCH ×4 (00:37→20:05)
[2018-08-31] MEDS: oxyCODONE/APAP 10/325mg tablet PO PRN ×4 (00:38→22:36)
--- NOTE | 2018-08-31 06:10 | NUR ---
Patient in room [facility]. I have received report from MEDINA Sánchez and had the opportunity to ask questions and assume patient care.
--- NOTE | 2018-08-31 06:18 | NUR ---
Problems reprioritized. Patient report given, questions answered & plan of care reviewed with MEDINA Klein. Addendum: 08/31/18 at 0619 by Princess Wu RN Amended: Links added.
[2018-08-31 07:22] VITALS: BP 89/46
[2018-08-31 07:33] LABS: BASOPHILS % (AUTO) 1.1 % (0-1); EOSINOPHILS # (AUTO) 0.1 X10'3 (0-0.9); EOSINOPHILS % (AUTO) 4.5 % (0-6); HEMATOCRIT 23.3 % (42.0-52.0); HEMOGLOBIN 7.6 g/dl (14.0-17.9); LYMPHOCYTES # (AUTO) 0.3 X10'3 (1.1-4.8); LYMPHOCYTES % (AUTO) 23.7 % (21-51); MEAN CORPUSCULAR HEMOGLOBIN 26.3 PG (27.0-31.0); MEAN CORPUSCULAR HGB CONC 32.7 g/dL (33.0-36.5); MEAN CORPUSCULAR VOLUME 80.5 FL (78-98); MEAN PLATELET VOLUME 7.8 FL (7.4-10.4); MONOCYTES # (AUTO) 0.2 X10'3 (0-0.9); MONOCYTES % (AUTO) 18.7 % (2-12); NEUTROPHILS # (AUTO) 0.6 X10'3 (1.8-7.7); PLATELET COUNT 89 X10'3 (140-440); RED BLOOD COUNT 2.89 X10'6 (4.70-6.10); RED CELL DISTRIBUTION WIDTH 19.7 % (11.5-14.5); WHITE BLOOD COUNT 1.1 X10'3 (4.5-11.0)
[2018-08-31 07:56] LABS: ALANINE AMINOTRANSFERASE 22 U/L (12-78); ALBUMIN 1.4 G/DL (3.4-5.0); ALBUMIN/GLOBULIN RATIO 0.3 (1.1-1.5); ALKALINE PHOSPHATASE 185 IU/L (46-116); ANION GAP 4 (8-16); ASPARTATE AMINO TRANSFERASE 64 U/L (10-37); BILIRUBIN,TOTAL 0.9 MG/DL (0.1-1.0); BLOOD UREA NITROGEN 7 MG/DL (7-18); BUN/CREATININE RATIO 9.3 (5.4-32.0); CHLORIDE 103 MMOL/L (99-107); CREATININE 0.75 MG/DL (0.60-1.10); GLUCOSE 84 MG/DL (70-104); SODIUM 139 MMOL/L (135-145); TOTAL CARBON DIOXIDE 32.2 MMOL/L (24-32); TOTAL PROTEIN 6.2 G/DL (6.4-8.2); eGFR > 90 ML/MIN
[2018-08-31 07:57] LABS: ANISOCYTOSIS 2+; PLATELET ESTIMATE DECREASED; TOTAL CELLS COUNTED 100
[2018-08-31 07:58] LABS: HYPOCHROMASIA 1+; POLYCHROMASIA FEW
[2018-08-31] MEDS: methylnaltrexone br 12mg/0.6ml inj***SubQ only SQ SCH (08:00)
[2018-08-31] MEDS: enoxaparin 40mg/0.4ml syringe SUBCUT SCH (08:00)
[2018-08-31] MEDS: spironolactone 25 MG tablet PO SCH ×3 (08:00→21:00)
[2018-08-31 08:06] LABS: POTASSIUM 2.8 MMOL/L (3.5-5.1)
[2018-08-31] MEDS: amox tr/potassium clavulanate 875/125mg TAB PO SCH ×2 (08:49→17:12)
[2018-08-31] MEDS: folic acid 1mg tablet PO SCH (08:49)
[2018-08-31] MEDS: furosemide 40mg tablet PO SCH ×2 (08:49→20:00)
[2018-08-31] MEDS: potassium chloride 10mEq ER tablet PO SCH (08:49)
[2018-08-31] MEDS: rifaximin 550mg tablet PO SCH ×2 (08:49→20:04)
[2018-08-31] MEDS: thiamine 100mg tablet PO SCH (08:49)
[2018-08-31] MEDS: potassium Cl 20 mEq SR tablet PO PRN ×3 (08:50→17:13)
[2018-08-31] MEDS: lactobacillus rhamnosus 10,000 MMU CELLS/CAPSULE PO SCH ×2 (08:50→20:04)
[2018-08-31] MEDS: multivitamins, therapeutics tablet PO SCH (08:50)
[2018-08-31] MEDS: pantoprazole 40mg Tablet.DR PO SCH ×2 (08:50→20:04)
[2018-08-31] MEDS: K, MAG and/or Phos replacement - Verify level? MC SCH (08:55)
[2018-08-31] MEDS: potassium Cl 20 mEq SR tablet PO SCH ×2 (09:20→17:14)
--- NOTE | 2018-08-31 11:24 | NUR ---
reassessment: Pt PO 100% regular meals meeting needs. LBM 08/27 pt refused relistor today but is receiving lactulose. S/p duodenal ulcer repair from perforated viscus. Remains fluid positive r/t cirrhosis per MD note on lasix. WBC 1.1 on probiotic; RD d/w RN for d/c probiotic per MD approval given potential contraindication. Will continue to monitor. Recommend: 1. continue regular/fluid restricted diet as medically indicated 2. Wt per rx 3. d/w probiotic per MD approval w/ WBC 1.1 Addendum: 08/31/18 at [address] Amended: Links added.
--- NOTE | 2018-08-31 15:00 | NUR ---
Rounded with Dr. Pavon. Patient is very uncooperative with his discharge plan. The patient will talk in circles regarding his incision, what the doctors told him, his ascites, and so on. He continues to tell the staff how it's going to be and does not listen to our solutions or plan of care for him. The patient needs to go home with the wound vac but he will not provide a physical address so that he will be approved. He says that he doesn't have anywhere that he can live but he has family in town. Case management has also come up with alternative places for the patient to go, but he refuses. Dr. Kaur said that he has to go with the wound vac. The patient is very manipulative and says different things to different staff members so that he can get his way.
--- NOTE | 2018-08-31 18:30 | NUR ---
Problems reprioritized. Patient report given, questions answered & plan of care reviewed with MEDINA Kent.
--- NOTE | 2018-08-31 18:30 | NUR ---
Patient in room [facility]. I have received report from MEDINA Klein and had the opportunity to ask questions and assume patient care. Addendum: 09/01/18 at 0106 by Jess Lisa RN Amended: Links added.
[2018-08-31 19:30] VITALS: BP 96/55
[2018-09-01 00:30] VITALS: BP 112/66
[2018-09-01] MEDS: lactulose 20gm/30ml cup PO SCH ×4 (02:00→20:45)
[2018-09-01] MEDS: oxyCODONE/APAP 10/325mg tablet PO PRN ×4 (04:25→22:34)
--- NOTE | 2018-09-01 06:21 | NUR ---
Problems reprioritized. Patient report given, questions answered & plan of care reviewed with MEDINA Escudero. Addendum: 09/01/18 at 0621 by Jess Lisa RN Amended: Links added.
--- NOTE | 2018-09-01 06:44 | NUR ---
Patient in room [facility]. I have received report from Yoli HANEY and had the opportunity to ask questions and assume patient care.
[2018-09-01 07:08] VITALS: BP 99/55
[2018-09-01] MEDS: lactobacillus rhamnosus 10,000 MMU CELLS/CAPSULE PO SCH ×2 (07:43→20:45)
[2018-09-01] MEDS: folic acid 1mg tablet PO SCH (07:44)
[2018-09-01] MEDS: furosemide 40mg tablet PO SCH ×2 (07:45→20:45)
[2018-09-01] MEDS: thiamine 100mg tablet PO SCH (07:45)
[2018-09-01] MEDS: multivitamins, therapeutics tablet PO SCH (07:45)
[2018-09-01] MEDS: amox tr/potassium clavulanate 875/125mg TAB PO SCH ×2 (07:45→16:44)
[2018-09-01] MEDS: spironolactone 25 MG tablet PO SCH ×3 (07:45→20:47)
[2018-09-01] MEDS: rifaximin 550mg tablet PO SCH ×2 (07:45→20:45)
[2018-09-01] MEDS: pantoprazole 40mg Tablet.DR PO SCH ×2 (07:45→20:45)
[2018-09-01] MEDS: enoxaparin 40mg/0.4ml syringe SUBCUT SCH (07:48)
[2018-09-01] MEDS: potassium chloride 10mEq ER tablet PO SCH (07:54)
[2018-09-01] MEDS: K, MAG and/or Phos replacement - Verify level? MC SCH (08:00)
[2018-09-01] MEDS: potassium Cl 20 mEq SR tablet PO SCH ×2 (09:29→16:43)
[2018-09-01 11:37] VITALS: BP 112/61
--- NOTE | 2018-09-01 18:30 | NUR ---
Patient in room [facility]. I have received report from MEDINA Escudero and had the opportunity to ask questions and assume patient care. Addendum: 09/01/18 at 2327 by Jess Lisa RN Amended: Links added.
--- NOTE | 2018-09-01 18:49 | NUR ---
Problems reprioritized. Patient report given, questions answered & plan of care reviewed with Yoli HANEY.
[2018-09-01 19:30] VITALS: BP 108/64
[2018-09-02 00:10] VITALS: BP 139/76
[2018-09-02] MEDS: lactulose 20gm/30ml cup PO SCH ×4 (02:00→20:19)
[2018-09-02] MEDS: oxyCODONE/APAP 10/325mg tablet PO PRN ×3 (05:28→19:16)
--- NOTE | 2018-09-02 06:14 | NUR ---
Problems reprioritized. Patient report given, questions answered & plan of care reviewed with MEDINA Escudero. Addendum: 09/02/18 at 0614 by Jess Lisa RN Amended: Links added.
[2018-09-02 07:07] VITALS: BP 98/54
[2018-09-02] MEDS: amox tr/potassium clavulanate 875/125mg TAB PO SCH ×2 (07:14→17:29)
[2018-09-02] MEDS: potassium Cl 20 mEq SR tablet PO SCH ×2 (07:14→17:29)
[2018-09-02] MEDS: folic acid 1mg tablet PO SCH (07:15)
[2018-09-02] MEDS: furosemide 40mg tablet PO SCH ×2 (07:15→20:20)
[2018-09-02] MEDS: multivitamins, therapeutics tablet PO SCH (07:15)
[2018-09-02] MEDS: thiamine 100mg tablet PO SCH (07:15)
[2018-09-02] MEDS: rifaximin 550mg tablet PO SCH ×2 (07:15→20:19)
[2018-09-02] MEDS: spironolactone 25 MG tablet PO SCH ×3 (07:15→19:18)
[2018-09-02] MEDS: pantoprazole 40mg Tablet.DR PO SCH ×2 (07:15→20:19)
[2018-09-02] MEDS: lactobacillus rhamnosus 10,000 MMU CELLS/CAPSULE PO SCH ×2 (07:15→20:19)
[2018-09-02 07:28] VITALS: BP 110/42
[2018-09-02 07:35] LABS: BASOPHILS % (AUTO) 0.9 % (0-1); EOSINOPHILS # (AUTO) 0.1 X10'3 (0-0.9); EOSINOPHILS % (AUTO) 4.4 % (0-6); HEMATOCRIT 24.6 % (42.0-52.0); HEMOGLOBIN 7.9 g/dl (14.0-17.9); LYMPHOCYTES # (AUTO) 0.3 X10'3 (1.1-4.8); LYMPHOCYTES % (AUTO) 23.7 % (21-51); MEAN CORPUSCULAR HEMOGLOBIN 26.1 PG (27.0-31.0); MEAN CORPUSCULAR HGB CONC 32.1 g/dL (33.0-36.5); MEAN CORPUSCULAR VOLUME 81.2 FL (78-98); MEAN PLATELET VOLUME 8.3 FL (7.4-10.4); MONOCYTES # (AUTO) 0.3 X10'3 (0-0.9); MONOCYTES % (AUTO) 18.1 % (2-12); NEUTROPHILS # (AUTO) 0.7 X10'3 (1.8-7.7); NEUTROPHILS % (AUTO) 52.9 % (42-75); PLATELET COUNT 92 X10'3 (140-440); RED BLOOD COUNT 3.03 X10'6 (4.70-6.10); RED CELL DISTRIBUTION WIDTH 19.8 % (11.5-14.5); WHITE BLOOD COUNT 1.4 X10'3 (4.5-11.0)
[2018-09-02 07:51] LABS: ALANINE AMINOTRANSFERASE 23 U/L (12-78); ALBUMIN 1.5 G/DL (3.4-5.0); ALBUMIN/GLOBULIN RATIO 0.3 (1.1-1.5); ALKALINE PHOSPHATASE 173 IU/L (46-116); ANION GAP 7 (8-16); ASPARTATE AMINO TRANSFERASE 64 U/L (10-37); BILIRUBIN,TOTAL 0.9 MG/DL (0.1-1.0); BLOOD UREA NITROGEN 9 MG/DL (7-18); BUN/CREATININE RATIO 11.8 (5.4-32.0); CALCIUM 8.3 MG/DL (8.5-10.1); CHLORIDE 103 MMOL/L (99-107); CREATININE 0.76 MG/DL (0.60-1.10); GLUCOSE 95 MG/DL (70-104); POTASSIUM 3.5 MMOL/L (3.5-5.1); SODIUM 139 MMOL/L (135-145); TOTAL CARBON DIOXIDE 29.4 MMOL/L (24-32); TOTAL PROTEIN 6.4 G/DL (6.4-8.2); eGFR > 90 ML/MIN
[2018-09-02] MEDS: enoxaparin 40mg/0.4ml syringe SUBCUT SCH (08:00)
[2018-09-02] MEDS: K, MAG and/or Phos replacement - Verify level? MC SCH (08:00)
[2018-09-02] MEDS: methylnaltrexone br 12mg/0.6ml inj***SubQ only SQ SCH (08:00)
[2018-09-02 08:06] LABS: PLATELET ESTIMATE DECREASED; TOTAL CELLS COUNTED 100
[2018-09-02 08:07] LABS: ANISOCYTOSIS 2+
[2018-09-02 12:39] VITALS: BP 98/59
[2018-09-02 20:00] VITALS: BP 106/59
[2018-09-03] VITALS: BP 111/56
[2018-09-03] MEDS: lactulose 20gm/30ml cup PO SCH ×3 (01:00→13:37)
[2018-09-03] MEDS: oxyCODONE/APAP 10/325mg tablet PO PRN ×2 (01:01→07:45)
--- NOTE | 2018-09-03 06:30 | NUR ---
Patient in room [facility]. I have received report from Liz HANEY and had the opportunity to ask questions and assume patient care.
[2018-09-03 07:08] VITALS: BP 113/61
[2018-09-03] MEDS: K, MAG and/or Phos replacement - Verify level? MC SCH (07:46)
[2018-09-03] MEDS: spironolactone 25 MG tablet PO SCH ×2 (08:00→12:21)
[2018-09-03] MEDS: folic acid 1mg tablet PO SCH (08:00)
[2018-09-03] MEDS: thiamine 100mg tablet PO SCH (08:00)
[2018-09-03] MEDS: multivitamins, therapeutics tablet PO SCH (08:00)
[2018-09-03] MEDS: enoxaparin 40mg/0.4ml syringe SUBCUT SCH (08:00)
[2018-09-03] MEDS: lactobacillus rhamnosus 10,000 MMU CELLS/CAPSULE PO SCH (08:00)
[2018-09-03] MEDS: rifaximin 550mg tablet PO SCH (08:00)
[2018-09-03] MEDS: furosemide 40mg tablet PO SCH (08:00)
[2018-09-03] MEDS: pantoprazole 40mg Tablet.DR PO SCH (08:00)
[2018-09-03] MEDS: amox tr/potassium clavulanate 875/125mg TAB PO SCH ×2 (08:30→16:54)
[2018-09-03] MEDS: potassium Cl 20 mEq SR tablet PO SCH ×2 (08:30→16:54)
--- NOTE | 2018-09-03 11:38 | NUR ---
WOUND VAC EDUCATION PROVIDED BY WOUND CARE 1. Patient instructed to call the Wound Center or their Home Health Agency immediately if: * They notice a change in the color or amount of the fluid in the canister. * Their wound looks more red than usual or has a foul smell. * The skin around their wound looks reddened or irritated. * The dressing feels loose or appears to be loose. * They experience any increase or changes in their pain. * The alarm will not turn off. 2. Patient instructed that they should not be disconnected from suction for more than 2 hours at a time. * If they are not able to get the suction back on, they need to remove the dressing and take all of the foam out of the wound. * Then moisten sterile gauze with normal saline and place on/in the wound. * Change the dressing once a day until arrangements have been made to replace the wound vac dressing. 3. Patient instructed to turn the wound vac machine OFF and call 911 or go to the ED immediately if their canister fills rapidly with blood. 4. If any of these occur while in the hospital tell a nurse immediately. Addendum: 09/03/18 at 1138 by Jesica Moore RN Amended: Links added.
[2018-09-03 11:50] VITALS: BP 110/61
[2018-09-03] MEDS ORDERED: PANT40TA4 PO (15:35)
[2018-09-03] MEDS ORDERED: SPIR25TA PO (15:35)
--- NOTE | 2018-09-03 15:39 | NUR ---
Patient requested pain pills about 30min ago, went to give pain medications and pt is sound asleep. Attempted to wake pt, but pt is sound asleep. Will wait to give pain meds.
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
[2018-09-03] MEDS ORDERED: PER10325T PO (16:46)
--- NOTE | 2018-09-03 17:39 | NUR ---
Patient refusing to have suction to wound vac placed with home wound vac. Explained to patient that suction needs to be applied to wound. Patient stating, "I will preparation supervisor canning the suction when I get to my motel. I dont want to have to carry it or mess with it right now." Charge nurse aware, also spoke with pt regarding risk of infection without suction not being applied.
--- NOTE | 2018-09-03 17:40 | NUR ---
Patients medication delivered bedside with [facility] who stayed late to make sure patient got his medications for discharge. Patients medications were delivered and there was a share of cost of $2.91 Spoke to Almaz with case management and they will cover the fees for medication. Addendum: 09/07/18 at 0739 by Aubree Lopez RN Late note: patient refused to have MRSA nasal swab done on discharge.
--- NOTE | 2018-09-03 17:44 | NUR ---
Joe lunch provided to patient, resources paper given to patient, 2 bus passes given to patient. Patient discharging to [facility] per hospital expense with wound vac. Rx delivered to patient via [facility] bedside. Discharge instructions given to patient and explained followup with Dr. Kaur and wound clinic. Patient stated he understands to followup. Patient refused to sign medicare form. Patient has clothes to discharge with. Taxi to be provided per hospital expense.
--- NOTE | 2018-09-03 18:00 | NUR ---
Patient discharged with all belongings. Patient agreed to have wound vac hooked up to suction with home wound vac, wound vac in place and to suction. Luis to take pt home.
== END 2018-09-03 18:01 | disposition home health service (06) | DRG 329 ==
LOC: ER 06:27 → ED HOLD 12:10 → ICU 2S 12:58 → SUR 3N 08-07 16:40
PROVIDERS: ATTEND Internal Medicine Critical Care Medicine
PROC: 30233R1 Transfusion of Nonautologous Platelets into Peripheral Vein, Percutaneous Approach (ICD-10-PCS; 2018-08-05)
PROC: 05HM33Z Insertion of Infusion Device into Right Internal Jugular Vein, Percutaneous Approach (ICD-10-PCS; 2018-08-05)
PROC: 0DU907Z Supplement Duodenum with Autologous Tissue Substitute, Open Approach (ICD-10-PCS; principal; 2018-08-05 14:11)
PROC: BW211ZZ Computerized Tomography (CT Scan) of Abdomen and Pelvis using Low Osmolar Contrast (ICD-10-PCS; 2018-08-15)
DX: K26.5 Chronic or unspecified duodenal ulcer with perforation (principal); K65.0 Generalized (acute) peritonitis; D61.818 Other pancytopenia; K76.6 Portal hypertension; R18.8 Other ascites; K52.9 Noninfective gastroenteritis and colitis, unspecified; K57.30 Diverticulosis of large intestine without perforation or abscess without bleeding; K74.60 Unspecified cirrhosis of liver; K25.5 Chronic or unspecified gastric ulcer with perforation; K40.90 Unilateral inguinal hernia, without obstruction or gangrene, not specified as recurrent; S92.324A Nondisplaced fracture of second metatarsal bone, right foot, initial encounter for closed fracture; X58.XXXA Exposure to other specified factors, initial encounter; K59.00 Constipation, unspecified; K80.20 Calculus of gallbladder without cholecystitis without obstruction; F12.90 Cannabis use, unspecified, uncomplicated; F10.20 Alcohol dependence, uncomplicated; G89.29 Other chronic pain; M54.9 Dorsalgia, unspecified; Z59.0 Homelessness; Y93.89 Activity, other specified; Y92.89 Other specified places as the place of occurrence of the external cause
CPT/HCPCS: 36415; 71045; 73630; 74176; 74177; 76705; 80053; 80202; 81001; 82140; 83690; 83735; 83880; 84100; 84132; 84145; 85025; 85610; 85730; 86885; 86900; 86901; 86920; 87045; 87046; 87070; 87075; 87088; 87324; 87449; 94668; 96365; 96366; 96368; 96375; 97110; 97162; 97530; 99285; A6253; A6266; A6449; A7000; C1758; C9113; C9399; G0378; J0696; J1170; J1450; J1580; J1650; J1885; J2001; J2060; J2175; J2250; J2270; J2405; J2543; J2704; J2765; J3010; J3370; J3411; J3475; J3480; J3490; J7030; J7060; J7120; P9035; P9045; Q9963; Q9967

== ENCOUNTER 2018-09-10 11:05 | Day surgery (SDC) | payer MEDICARE, MEDICAID ==
[~2018-09-10 11:05] MED LIST changes: -CLOT15CR5 TOP; -COMP-18; -DYR50C PO; -MECL-111 PO; -NORCO10T PO; -OMEP20CA10 PO; -PANT40TA39 PO; +PANT40TA4 PO; +PER10325T PO; +POTA10TA15 PO; -POTA10TA36 PO; +RIFA550T PO; +SPIR25TA PO
--- NOTE | 2018-09-10 13:26 | NUR ---
Patient called office today and stated he needed to be seen. No appointment had been scheduled and no referral had been made. Patient stated to office staff he "had this wound vac on since the "; accommodations are made to get the patient into the clinic by taxi. Patient arrived in clinic with a large plastic clear bag of his belongings and was belligerent with staff. Patient is brought back to examination area by RN and a wound vac dressing is removed from patient's abdominal wound which had a one piece of black foam. The dressing was not attached to the wound vac and the wound vac may or may not be in the plastic bag of patient belongings. 1120 - Dr. Keith at the bedside accompanied by RN. Wound assessed by MD, time out by RN and MD. Wound debrided as detailed in the physician progress/procedure note. Patient is belligerent, with labile mood swings during the visit. Puracol and non adherent and border foam are placed per MD orders by RN. Per MD orders, 3 bordered foam dressings are provided to the patient. Patient requested extra belonging bags which were brought by RN. MD orders to discontinue the wound vac due to no place to live, patient's statement that he is "leaving town" and no home health. When RN asked patient to welder repair her the vac, the patient became belligerent again and stated "you're not taking my vacuum, I have hundreds of dollars, you are not touching my vac". Patient was taken out to [facility] via wheelchair with all of his belongings which he carried and forbade the RN to touch. Security is paged to escort patient out of the building. Patient left the building escorted by SEARCH PLANNER, 2 security guards with all of his belongings and was in medically stable condition at the time of discharge. Patient stated he would return to clinic on Thursday at 10:00 for next scheduled appointment.
== END 2018-09-10 12:30 | disposition home or self-care (01) ==
LOC: WOUND CARE 11:05
PROVIDERS: ATTEND Surgery
DX: T81.89XD Other complications of procedures, not elsewhere classified, subsequent encounter (principal); L98.492 Non-pressure chronic ulcer of skin of other sites with fat layer exposed; G89.29 Other chronic pain; K80.20 Calculus of gallbladder without cholecystitis without obstruction; I10 Essential (primary) hypertension; F12.90 Cannabis use, unspecified, uncomplicated; F10.20 Alcohol dependence, uncomplicated; Z79.899 Other long term (current) drug therapy; Z98.890 Other specified postprocedural states; Z87.442 Personal history of urinary calculi; Y83.8 Other surgical procedures as the cause of abnormal reaction of the patient, or of later complication, without mention of misadventure at the time of the procedure
CPT/HCPCS: 97597; A6021; A6213

== ENCOUNTER 2018-09-15 12:26 | Emergency (ER) | payer MEDICARE, MEDICAID ==
[~2018-09-15] VITALS: Ht 188 cm; Wt 83.4 kg
[2018-09-15 13:22] VITALS: BP 137/89
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
[2018-09-15] MEDS ORDERED: DOXY100C43 PO (14:14)
== END 2018-09-15 14:51 | disposition home or self-care (01) ==
LOC: ER 12:27
DX: K91.89 Other postprocedural complications and disorders of digestive system (principal); L53.8 Other specified erythematous conditions; G89.29 Other chronic pain; F12.90 Cannabis use, unspecified, uncomplicated; Z98.890 Other specified postprocedural states; Z79.899 Other long term (current) drug therapy
CPT/HCPCS: 99283

== ENCOUNTER 2018-09-17 06:02 | Emergency (ER) | payer MEDICARE, MEDICAID ==
[~2018-09-17] VITALS: Ht 182.9 cm; Wt 79.0 kg
[~2018-09-17 06:02] MED LIST changes: +DOXY100C43 PO
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
[2018-09-17 07:07] LABS: CLARITY,URINE CLEAR (Clear); COLOR,URINE YELLOW (Yellow); GLUCOSE, URINE NEGATIVE (Neg); KETONES,URINE NEGATIVE (Neg); LEUKOCYTE ESTERASE ,URINE NEGATIVE (Neg); NITRITES, URINE NEGATIVE (Neg); OCCULT BLOOD,URINE MODERATE (Neg); PH,URINE 5.5 (4.8-8.0); PROTEIN,URINE NEGATIVE (Neg)
[2018-09-17 07:08] LABS: BASOPHILS % (AUTO) 0.7 % (0-1); EOSINOPHILS % (AUTO) 2.3 % (0-6); HEMATOCRIT 26.4 % (42.0-52.0); HEMOGLOBIN 8.4 g/dl (14.0-17.9); LYMPHOCYTES # (AUTO) 0.4 X10'3 (1.1-4.8); MEAN CORPUSCULAR HEMOGLOBIN 27.1 PG (27.0-31.0); MEAN CORPUSCULAR HGB CONC 31.9 g/dL (33.0-36.5); MEAN CORPUSCULAR VOLUME 84.9 FL (78-98); MEAN PLATELET VOLUME 7.9 FL (7.4-10.4); MONOCYTES # (AUTO) 0.2 X10'3 (0-0.9); MONOCYTES % (AUTO) 13.5 % (2-12); NEUTROPHILS # (AUTO) 1.1 X10'3 (1.8-7.7); NEUTROPHILS % (AUTO) 60.5 % (42-75); PLATELET COUNT 57 X10'3 (140-440); RED BLOOD COUNT 3.11 X10'6 (4.70-6.10); RED CELL DISTRIBUTION WIDTH 21.7 % (11.5-14.5); WHITE BLOOD COUNT 1.8 X10'3 (4.5-11.0)
[2018-09-17 07:11] LABS: UA COLLECTION TYPE CLN CATCH MIDSTREAM
[2018-09-17 07:14] LABS: BACTERIA,URINE NONE SEEN /HPF (Neg); MUCUS STRANDS NONE SEEN /LPF (Neg); SQUAMOUS EPITHELIAL CELL,UR FEW /LPF (FEW); WBC,URINE 0-4 /HPF (0-4)
[2018-09-17 07:24] LABS: OCCULT BLOOD STOOL POSITIVE (Neg)
[2018-09-17 07:29] LABS: ALANINE AMINOTRANSFERASE 30 U/L (12-78); ALBUMIN 1.9 G/DL (3.4-5.0); ALBUMIN/GLOBULIN RATIO 0.4 (1.1-1.5); ALKALINE PHOSPHATASE 162 IU/L (46-116); ANION GAP 5 (8-16); ASPARTATE AMINO TRANSFERASE 95 U/L (10-37); BILIRUBIN,TOTAL 1.6 MG/DL (0.1-1.0); BLOOD UREA NITROGEN 4 MG/DL (7-18); BUN/CREATININE RATIO 5.6 (5.4-32.0); CALCIUM 7.5 MG/DL (8.5-10.1); CHLORIDE 108 MMOL/L (99-107); CREATININE 0.72 MG/DL (0.60-1.10); ETHANOL 0.215 GM/DL (0.0-0.010); GLUCOSE 117 MG/DL (70-104); INR 1.4 INR; PARTIAL THROMBOPLASTIN TIME 31 SECONDS (22-32); POTASSIUM 3.1 MMOL/L (3.5-5.1); SODIUM 140 MMOL/L (135-145); TOTAL CARBON DIOXIDE 26.8 MMOL/L (24-32); TOTAL PROTEIN 6.4 G/DL (6.4-8.2); eGFR > 90 ML/MIN
[2018-09-17 07:31] LABS: ANISOCYTOSIS 3+; PLATELET ESTIMATE DECREASED; ROULEAUX 1+; TOTAL CELLS COUNTED 100
[2018-09-17 07:32] LABS: HYPOCHROMASIA 1+; TARGET CELLS 1+
[2018-09-17] MEDS ORDERED: iohexol 300mg/ml 100ml inj. ONE (07:32)
[2018-09-17] MEDS ORDERED: LORazepam 2 mg/ml vial IV ONE (07:55)
[2018-09-17] MEDS ORDERED: ondansetron/PF 4mg/2ml inj IV ONE (07:55)
[2018-09-17] MEDS ORDERED: pantoprazole 40 MG vial IV ONE (08:45)
--- NOTE | 2018-09-17 08:51 | NUR ---
Pt sleeping, vitals wnl, provider in room, pt awaken with sternal rub then returns to sleep
--- NOTE | 2018-09-17 10:30 | NUR ---
dr. jones at bedside.
--- NOTE | 2018-09-17 10:45 | NUR ---
Pt sleeping, arousal to voice and mild stimulation
[2018-09-17] MEDS ORDERED: potassium Cl 20 mEq SR tablet PO STA (11:42)
[2018-09-17] MEDS ORDERED: PANT-47 PO (11:50)
[2018-09-17 12:07] VITALS: BP 133/84
[2018-09-17] MEDS ORDERED: pantoprazole 40MG/NS 100ML BAG 100 ML IV SCH (16:00)
== END 2018-09-17 12:25 | disposition home or self-care (01) ==
LOC: ER 06:02
DX: K92.1 Melena (principal); E87.6 Hypokalemia; F10.229 Alcohol dependence with intoxication, unspecified; D61.818 Other pancytopenia; G89.29 Other chronic pain; F12.90 Cannabis use, unspecified, uncomplicated; Z79.899 Other long term (current) drug therapy; Z98.890 Other specified postprocedural states
CPT/HCPCS: 36415; 71045; 74177; 80053; 80320; 81001; 82272; 85025; 85610; 85730; 93005; 96374; 96375; 99284; C9113; J2060; J2405; Q9967

== ENCOUNTER 2018-09-28 08:55 | Day surgery (SDC) | payer MEDICARE, MEDICAID ==
[~2018-09-28 08:55] MED LIST changes: -DOXY100C43 PO; +PANT-47 PO
[2018-09-28] MEDS ORDERED: LIDOcaine/PRILOcaine 5gm cream TP ONE (10:02)
--- NOTE | 2018-09-28 10:45 | NUR ---
Patient ambulated independently from [facility] and was admitted to outpatient wound care for physician visit with Rajendra Keith MD. Dressing removed, wound cleansed and Emla cream applied per order. Patient assessed for changes in conditions, medications and medical history. 1028 - Dr. Keith at bedside accompanied by RN. Wound assessed, time out performed by MD/RN. Wound debrided as detailed in the physician progress/procedure note. Plan of care discussed with patient. Dressings placed by MD. Patient instructed on the signs and symptoms of infection and to call the Wound Center if any occur or to go to the ED if we are closed: Increased pain in wound Increase in drainage from the wound Redness in the skin surrounding the wound Bleeding from the wound Temperature of 101 or greater Patient instructed that the weight of their body puts a large amount of pressure on their wounds. This pressure keeps the new tissue from growing and inhibits new blood vessels from forming. Explained that, if they continue to bear weight on a body part that has a wound, the time it takes to heal the wound increases, the wound may get worse or the wound may not heal at all. Patient verbalized understanding of all discharge instructions and plan of care and ambulated independently out to [facility] in stable condition with no sign or symptom of distress at time of discharge.
== END 2018-09-28 10:41 | disposition home or self-care (01) ==
LOC: WOUND CARE 08:55
PROVIDERS: ATTEND Surgery
DX: T81.89XD Other complications of procedures, not elsewhere classified, subsequent encounter (principal); L98.492 Non-pressure chronic ulcer of skin of other sites with fat layer exposed; G89.29 Other chronic pain; K80.20 Calculus of gallbladder without cholecystitis without obstruction; I10 Essential (primary) hypertension; F12.90 Cannabis use, unspecified, uncomplicated; F10.20 Alcohol dependence, uncomplicated; Z79.899 Other long term (current) drug therapy; Z98.890 Other specified postprocedural states; Z87.442 Personal history of urinary calculi; Y83.8 Other surgical procedures as the cause of abnormal reaction of the patient, or of later complication, without mention of misadventure at the time of the procedure
CPT/HCPCS: 97597; A6021; A6212

== ENCOUNTER 2018-10-06 03:50 | Emergency (ER) | payer MEDICARE, MEDICAID ==
[~2018-10-06] VITALS: Ht 188 cm; Wt 90.9 kg
[2018-10-06 03:55] VITALS: BP 108/75
[2018-10-06] MEDS ORDERED: CEPH500C5 PO (04:11)
[2018-10-06] MEDS ORDERED: BACDS PO (04:11)
[2018-10-06] MEDS ORDERED: ibuprofen tablet 400 MG TABLET PO ONE (04:15)
[2018-10-06] MEDS ORDERED: ibuprofen 200mg tablet PO ONE (04:15)
[2018-10-06] MEDS ORDERED: sulfamethoxazole/trimethoprim DS (800/160mg) tablet PO ONE (04:15)
[2018-10-06] MEDS ORDERED: cephalexin 250mg capsule PO ONE (04:15)
== END 2018-10-06 04:30 | disposition home or self-care (01) ==
LOC: ER 03:51
DX: T81.49XA Infection following a procedure, other surgical site, initial encounter (principal); L53.8 Other specified erythematous conditions; G89.29 Other chronic pain; F12.90 Cannabis use, unspecified, uncomplicated; Z98.890 Other specified postprocedural states; Z79.899 Other long term (current) drug therapy; Y92.89 Other specified places as the place of occurrence of the external cause
CPT/HCPCS: 99284

== ENCOUNTER 2018-10-09 09:59 | Emergency (ER) | payer MEDICARE, MEDICAID ==
[~2018-10-09] VITALS: Ht 182.9 cm; Wt 81.0 kg
[~2018-10-09 09:59] MED LIST changes: +BACDS PO; +CEPH500C5 PO
--- NOTE | 2018-10-09 10:08 | NUR ---
[facility] case #[id number].
[2018-10-09 10:25] VITALS: BP 146/95
[2018-10-09] MEDS ORDERED: HYDR-4353 PO (10:45)
== END 2018-10-09 11:00 | disposition home or self-care (01) ==
LOC: ER 10:00
DX: S03.2XXA Dislocation of tooth, initial encounter (principal); S00.83XA Contusion of other part of head, initial encounter; G89.29 Other chronic pain; F12.90 Cannabis use, unspecified, uncomplicated; Z98.890 Other specified postprocedural states; Z79.899 Other long term (current) drug therapy; Y04.0XXA Assault by unarmed brawl or fight, initial encounter; Y93.89 Activity, other specified; Y92.89 Other specified places as the place of occurrence of the external cause; Y99.8 Other external cause status
CPT/HCPCS: 99283

== ENCOUNTER 2018-10-13 12:33 | Emergency (ER) | payer MEDICARE, MEDICAID ==
[~2018-10-13] VITALS: Ht 182.9 cm; Wt 90.9 kg
[~2018-10-13 12:33] MED LIST changes: +HYDR-4353 PO
[2018-10-13 12:47] VITALS: BP 131/80
== END 2018-10-13 14:07 | disposition home or self-care (01) ==
LOC: ER 12:33
DX: S90.821A Blister (nonthermal), right foot, initial encounter (principal); G89.29 Other chronic pain; F12.90 Cannabis use, unspecified, uncomplicated; Z98.890 Other specified postprocedural states; Z79.2 Long term (current) use of antibiotics; Z79.899 Other long term (current) drug therapy; X58.XXXA Exposure to other specified factors, initial encounter; Y93.89 Activity, other specified; Y92.89 Other specified places as the place of occurrence of the external cause; Y99.8 Other external cause status
CPT/HCPCS: 99281; 99283

== ENCOUNTER 2018-10-20 04:03 | Emergency (ER) | payer MEDICARE, MEDICAID ==
[~2018-10-20] VITALS: Ht 182.9 cm; Wt 90.9 kg
[~2018-10-20 04:03] MED LIST changes: -HYDR-4353 PO
[2018-10-20 05:30] VITALS: BP 114/64
== END 2018-10-20 05:42 | disposition home or self-care (01) ==
LOC: ER 04:04
DX: N99.820 Postprocedural hemorrhage of a genitourinary system organ or structure following a genitourinary system procedure (principal); K91.840 Postprocedural hemorrhage of a digestive system organ or structure following a digestive system procedure; G89.29 Other chronic pain; F12.90 Cannabis use, unspecified, uncomplicated; Z98.890 Other specified postprocedural states
CPT/HCPCS: 99283

== ENCOUNTER 2018-12-19 23:47 | Emergency (ER) | payer MEDICARE, MEDICAID ==
[~2018-12-19] VITALS: Ht 182.9 cm; Wt 86.4 kg
[~2018-12-19 23:47] MED LIST changes: -BACDS PO; -CEPH500C5 PO; +FOLI1TAB16 PO; -FURO-150 PO; +LACT10SO PO; -LACT10SO6 PO; +MAGN400C PO; +ONDA4TAB6 PO; -PANT40TA4 PO; -PER10325T PO; -POTA10TA15 PO; -RIFA550T PO; -SPIR25TA PO; +thiamine tablet PO
[2018-12-20 02:49] LABS: ALANINE AMINOTRANSFERASE 62 U/L (12-78); ALBUMIN 2.3 G/DL (3.4-5.0); ALBUMIN/GLOBULIN RATIO 0.5 (1.1-1.5); ALKALINE PHOSPHATASE 164 IU/L (46-116); ANION GAP 8 (8-16); ASPARTATE AMINO TRANSFERASE 148 U/L (10-37); BLOOD UREA NITROGEN 7 MG/DL (7-18); BUN/CREATININE RATIO 9.3 (5.4-32.0); CALCIUM 7.6 MG/DL (8.5-10.1); CHLORIDE 110 MMOL/L (99-107); CREATININE 0.75 MG/DL (0.60-1.10); GLUCOSE 92 MG/DL (70-104); LIPASE 332 U/L (73-393); POTASSIUM 3.3 MMOL/L (3.5-5.1); SODIUM 142 MMOL/L (135-145); TOTAL CARBON DIOXIDE 24.1 MMOL/L (24-32); TOTAL PROTEIN 6.5 G/DL (6.4-8.2); eGFR > 90 ML/MIN
[2018-12-20 03:23] LABS: BASOPHILS % (AUTO) 0.7 % (0-1); EOSINOPHILS % (AUTO) 1.8 % (0-6); HEMATOCRIT 26.6 % (42.0-52.0); HEMOGLOBIN 8.6 g/dl (14.0-17.9); LYMPHOCYTES # (AUTO) 0.4 X10'3 (1.1-4.8); LYMPHOCYTES % (AUTO) 28.7 % (21-51); MEAN CORPUSCULAR HEMOGLOBIN 27.1 PG (27.0-31.0); MEAN CORPUSCULAR HGB CONC 32.3 g/dL (33.0-36.5); MEAN CORPUSCULAR VOLUME 83.9 FL (78-98); MEAN PLATELET VOLUME 8.8 FL (7.4-10.4); MONOCYTES # (AUTO) 0.2 X10'3 (0-0.9); MONOCYTES % (AUTO) 15.2 % (2-12); NEUTROPHILS # (AUTO) 0.7 X10'3 (1.8-7.7); NEUTROPHILS % (AUTO) 53.6 % (42-75); RED BLOOD COUNT 3.18 X10'6 (4.70-6.10); RED CELL DISTRIBUTION WIDTH 21.5 % (11.5-14.5); WHITE BLOOD COUNT 1.3 X10'3 (4.5-11.0)
[2018-12-20 03:37] LABS: PLATELET COUNT 43 X10'3 (140-440)
[2018-12-20 03:38] VITALS: BP 112/65
[2018-12-20 14:18] LABS: TOTAL CELLS COUNTED 100
[2018-12-20 14:19] LABS: ANISOCYTOSIS 2+; HYPOCHROMASIA 1+; PLATELET ESTIMATE DECREASED; POIKILOCYTOSIS 1+; SPHEROCYTES FEW
== END 2018-12-20 03:42 | disposition home or self-care (01) ==
LOC: ER 23:48
DX: K43.9 Ventral hernia without obstruction or gangrene (principal); R16.1 Splenomegaly, not elsewhere classified; K80.20 Calculus of gallbladder without cholecystitis without obstruction; I86.8 Varicose veins of other specified sites; K76.6 Portal hypertension; G89.29 Other chronic pain; F12.90 Cannabis use, unspecified, uncomplicated; Z87.11 Personal history of peptic ulcer disease; Z98.890 Other specified postprocedural states; Z79.899 Other long term (current) drug therapy
CPT/HCPCS: 36415; 74176; 80053; 83690; 85025; 99284

== ENCOUNTER 2019-01-12 16:32 | Emergency (ER) | payer MEDICARE, MEDICAID ==
[~2019-01-12] VITALS: Ht 182.9 cm; Wt 87.7 kg
[2019-01-12] MEDS ORDERED: TOLN108P2 TP (18:52)
[2019-01-12] MEDS ORDERED: FLUC200T PO (18:52)
[2019-01-12] MEDS ORDERED: fluconazole 100mg tablet PO ONE (18:55)
[2019-01-12 19:06] VITALS: BP 128/58
== END 2019-01-12 19:07 | disposition home or self-care (01) ==
LOC: ER 16:32
DX: B35.3 Tinea pedis (principal); G89.29 Other chronic pain; F12.90 Cannabis use, unspecified, uncomplicated; Z98.890 Other specified postprocedural states; Z79.899 Other long term (current) drug therapy
CPT/HCPCS: 99283

== ENCOUNTER 2019-01-23 12:34 | Emergency (ER) | payer MEDICARE, MEDICAID ==
[~2019-01-23] VITALS: Ht 182.9 cm; Wt 86.3 kg
[~2019-01-23 12:34] MED LIST changes: +FLUC200T PO; +TOLN108P2 TP
[2019-01-23 13:13] LABS: HEMATOCRIT 26.3 % (42.0-52.0); HEMOGLOBIN 8.6 g/dl (14.0-17.9); LYMPHOCYTES # (AUTO) 0.4 X10'3 (1.1-4.8); LYMPHOCYTES % (AUTO) 12.6 % (21-51); MEAN CORPUSCULAR HGB CONC 32.5 g/dL (33.0-36.5); MEAN CORPUSCULAR VOLUME 89.2 FL (78-98); MEAN PLATELET VOLUME 8.8 FL (7.4-10.4); MONOCYTES # (AUTO) 0.4 X10'3 (0-0.9); MONOCYTES % (AUTO) 13.4 % (2-12); NEUTROPHILS # (AUTO) 2.4 X10'3 (1.8-7.7); PLATELET COUNT 80 X10'3 (140-440); RED BLOOD COUNT 2.95 X10'6 (4.70-6.10); RED CELL DISTRIBUTION WIDTH 22.9 % (11.5-14.5); WHITE BLOOD COUNT 3.3 X10'3 (4.5-11.0)
[2019-01-23 13:25] LABS: PARTIAL THROMBOPLASTIN TIME 28 SECONDS (22-32)
[2019-01-23 13:26] LABS: ALANINE AMINOTRANSFERASE 33 U/L (12-78); ALBUMIN/GLOBULIN RATIO 0.5 (1.1-1.5); ALKALINE PHOSPHATASE 125 IU/L (46-116); ANION GAP 10 (8-16); ASPARTATE AMINO TRANSFERASE 81 U/L (10-37); BILIRUBIN,TOTAL 2.4 MG/DL (0.1-1.0); BLOOD UREA NITROGEN 8 MG/DL (7-18); BUN/CREATININE RATIO 15.7 (5.4-32.0); CALCIUM 8.3 MG/DL (8.5-10.1); CHLORIDE 110 MMOL/L (99-107); CREATININE 0.51 MG/DL (0.60-1.10); GLUCOSE 87 MG/DL (70-104); POTASSIUM 3.5 MMOL/L (3.5-5.1); SODIUM 143 MMOL/L (135-145); TOTAL CARBON DIOXIDE 23.1 MMOL/L (24-32); TOTAL PROTEIN 6.1 G/DL (6.4-8.2); eGFR > 90 ML/MIN
[2019-01-23 13:49] LABS: ANISOCYTOSIS 3+; PLATELET ESTIMATE DECREASED; POLYCHROMASIA 2+; STOMATOCYTES 1+
[2019-01-23] MEDS ORDERED: normal saline 1000ML IV soln IVB ONE (13:50)
[2019-01-23] MEDS ORDERED: sucralfate 1gm/10ml UD suspension PO STA (14:01)
[2019-01-23] MEDS ORDERED: LIDOcaine Viscous 15ml cup PO ONE (14:05)
[2019-01-23] MEDS ORDERED: mag hydrox/Alum hydrox/simeth 30ml oral suspension PO ONE (14:05)
--- NOTE | 2019-01-23 15:06 | NUR ---
pt sleeping in no obvious distress. breathing well.
--- NOTE | 2019-01-23 16:00 | NUR ---
Dr. Person at bedside for rectal exam; assisted by this nurse. Discussed DC and further f/u with pt.
[2019-01-23 16:08] VITALS: BP 118/68
[2019-01-23] MEDS ORDERED: FURO-150 PO (16:24)
[2019-01-23] MEDS ORDERED: DEXL60CA3 PO (16:24)
[2019-01-23] MEDS ORDERED: POTA20TA19 PO (16:24)
[2019-01-24 12:29] LABS: OCCULT BLOOD STOOL POSITIVE (Neg)
== END 2019-01-23 16:13 | disposition home or self-care (01) ==
LOC: ER 12:35
DX: K92.2 Gastrointestinal hemorrhage, unspecified (principal); R11.2 Nausea with vomiting, unspecified; G89.29 Other chronic pain; F12.90 Cannabis use, unspecified, uncomplicated; Z98.890 Other specified postprocedural states; Z87.11 Personal history of peptic ulcer disease; Z79.899 Other long term (current) drug therapy
CPT/HCPCS: 36415; 71045; 80053; 82272; 85025; 85610; 85730; 86885; 86900; 86901; 93005; 96360; 99284; J7030

== ENCOUNTER 2019-01-23 17:11 | Emergency (ER) | payer MEDICARE, MEDICAID ==
[~2019-01-23] VITALS: Ht 182.9 cm; Wt 90.0 kg
[~2019-01-23 17:11] MED LIST changes: +DEXL60CA3 PO; +FURO-150 PO; +POTA20TA19 PO
--- NOTE | 2019-01-23 18:50 | NUR ---
ATTEMPTED PIV X 2: IN BUT WOULD NOT THREAD
[2019-01-23 19:10] LABS: BASOPHILS % (AUTO) 0.9 % (0-1); EOSINOPHILS % (AUTO) 0.9 % (0-6); HEMATOCRIT 25.6 % (42.0-52.0); HEMOGLOBIN 8.2 g/dl (14.0-17.9); LYMPHOCYTES # (AUTO) 0.3 X10'3 (1.1-4.8); LYMPHOCYTES % (AUTO) 17.8 % (21-51); MEAN CORPUSCULAR HEMOGLOBIN 28.9 PG (27.0-31.0); MEAN CORPUSCULAR HGB CONC 32.2 g/dL (33.0-36.5); MEAN CORPUSCULAR VOLUME 89.9 FL (78-98); MEAN PLATELET VOLUME 8.5 FL (7.4-10.4); MONOCYTES # (AUTO) 0.3 X10'3 (0-0.9); MONOCYTES % (AUTO) 15.5 % (2-12); NEUTROPHILS # (AUTO) 1.2 X10'3 (1.8-7.7); NEUTROPHILS % (AUTO) 64.9 % (42-75); PLATELET COUNT 60 X10'3 (140-440); RED BLOOD COUNT 2.85 X10'6 (4.70-6.10); RED CELL DISTRIBUTION WIDTH 23.1 % (11.5-14.5); WHITE BLOOD COUNT 1.9 X10'3 (4.5-11.0)
[2019-01-23 19:11] LABS: ALANINE AMINOTRANSFERASE 34 U/L (12-78); ALBUMIN/GLOBULIN RATIO 0.5 (1.1-1.5); ALKALINE PHOSPHATASE 119 IU/L (46-116); ANION GAP 9 (8-16); ASPARTATE AMINO TRANSFERASE 82 U/L (10-37); BILIRUBIN,TOTAL 2.4 MG/DL (0.1-1.0); BLOOD UREA NITROGEN 8 MG/DL (7-18); BUN/CREATININE RATIO 12.1 (5.4-32.0); CALCIUM 7.5 MG/DL (8.5-10.1); CHLORIDE 111 MMOL/L (99-107); CREATININE 0.66 MG/DL (0.60-1.10); GLUCOSE 112 MG/DL (70-104); POTASSIUM 3.6 MMOL/L (3.5-5.1); SODIUM 144 MMOL/L (135-145); TOTAL PROTEIN 5.9 G/DL (6.4-8.2); eGFR > 90 ML/MIN
[2019-01-23] MEDS ORDERED: ondansetron/PF 4mg/2ml inj IV ONE (20:20)
[2019-01-23] MEDS ORDERED: ondansetron 4mg rapidly disintigrating tab PO ONE (20:30)
[2019-01-23 20:54] LABS: ETHANOL 0.046 GM/DL (0.0-0.010)
[2019-01-23] MEDS ORDERED: proCHLORperazine 10 MG/2 ml inj IM ONE (21:10)
[2019-01-23 21:14] LABS: TOTAL CELLS COUNTED 100
[2019-01-23 21:15] LABS: ANISOCYTOSIS 1+; PLATELET ESTIMATE DECREASED
[2019-01-23] MEDS ORDERED: morphine 4 MG/ML inj SYRINge IM ONE (21:35)
[2019-01-23 21:38] LABS: URINE AMPHETAMINE SCREEN NEGATIVE (Neg); URINE BARBITUATE SCREEN NEGATIVE (Neg); URINE BENZODIAZEPINES SCREEN NEGATIVE (Neg); URINE CANNABINOID SCREEN POSITIVE (Neg); URINE COCAINE SCREEN NEGATIVE (Neg); URINE METHADONE SCREEN NEGATIVE (Neg); URINE OPIATE SCREEN NEGATIVE (Neg); URINE PHENCYCLIDINE SCREEN NEGATIVE (Neg)
[2019-01-23 22:14] VITALS: BP 125/68
== END 2019-01-23 22:05 | disposition home or self-care (01) ==
LOC: ER 17:11
DX: K92.2 Gastrointestinal hemorrhage, unspecified (principal); R60.0 Localized edema; G89.29 Other chronic pain; F12.90 Cannabis use, unspecified, uncomplicated; Z87.11 Personal history of peptic ulcer disease; Z98.890 Other specified postprocedural states; Z79.899 Other long term (current) drug therapy
CPT/HCPCS: 36415; 80053; 80305; 80320; 85025; 96372; 99283; J0780; J2270

== ENCOUNTER 2019-03-18 21:12 | Emergency (ER) | payer MEDICARE, MEDICAID ==
[~2019-03-18] VITALS: Ht 182.9 cm; Wt 90.0 kg
[~2019-03-18 21:12] MED LIST changes: -POTA20TA19 PO
[2019-03-18] MEDS ORDERED: AMOX-422 PO (22:38)
[2019-03-18 22:54] VITALS: BP 106/49
== END 2019-03-18 22:50 | disposition home or self-care (01) ==
LOC: ER 21:12
DX: S02.92XA Unspecified fracture of facial bones, initial encounter for closed fracture (principal); H11.31 Conjunctival hemorrhage, right eye; G89.29 Other chronic pain; F12.90 Cannabis use, unspecified, uncomplicated; Z87.11 Personal history of peptic ulcer disease; Z98.890 Other specified postprocedural states; Z79.899 Other long term (current) drug therapy; Y04.0XXA Assault by unarmed brawl or fight, initial encounter; Y93.89 Activity, other specified; Y92.89 Other specified places as the place of occurrence of the external cause; Y99.9 Unspecified external cause status
CPT/HCPCS: 99283

== ENCOUNTER 2019-06-07 07:51 | Emergency (ER) | payer MEDICARE, MEDICAID ==
[~2019-06-07] VITALS: Ht 175.3 cm; Wt 80.0 kg
[2019-06-07] MEDS ORDERED: ondansetron/PF 4mg/2ml inj IV ONE ×2 (08:45→10:25)
[2019-06-07] MEDS ORDERED: normal saline 1000ml 1,000 ML IV ONE ×2 (08:45→10:25)
[2019-06-07 09:42] LABS: HEMATOCRIT 27.5 % (42.0-52.0); MEAN CORPUSCULAR HEMOGLOBIN 28.4 PG (27.0-31.0); MEAN CORPUSCULAR HGB CONC 32.6 g/dL (33.0-36.5); MEAN PLATELET VOLUME 9.7 FL (7.4-10.4); RED BLOOD COUNT 3.16 X10'6 (4.70-6.10); RED CELL DISTRIBUTION WIDTH 23.1 % (11.5-14.5)
[2019-06-07 09:51] LABS: PARTIAL THROMBOPLASTIN TIME 30 SECONDS (22-32)
[2019-06-07 09:52] LABS: ALANINE AMINOTRANSFERASE 70 U/L (12-78); ALBUMIN 2.1 G/DL (3.4-5.0); ALKALINE PHOSPHATASE 153 IU/L (46-116); ASPARTATE AMINO TRANSFERASE 141 U/L (10-37); BILIRUBIN,TOTAL 5.3 MG/DL (0.1-1.0); BLOOD UREA NITROGEN 6 MG/DL (7-18); BUN/CREATININE RATIO 7.7 (5.4-32.0); CALCIUM 7.9 MG/DL (8.5-10.1); CHLORIDE 106 MMOL/L (99-107); CREATININE 0.78 MG/DL (0.60-1.10); GLUCOSE 185 MG/DL (70-104); POTASSIUM 3.5 MMOL/L (3.5-5.1); TOTAL CARBON DIOXIDE 23.9 MMOL/L (24-32); eGFR > 90 ML/MIN
[2019-06-07 10:09] LABS: LIPASE 271 U/L (73-393)
[2019-06-07 10:15] LABS: ALBUMIN/GLOBULIN RATIO 0.6 (1.1-1.5); ANION GAP 7 (8-16); SODIUM 137 MMOL/L (135-145); TOTAL PROTEIN 5.7 G/DL (6.4-8.2)
[2019-06-07 10:21] LABS: PLATELET COUNT 34 X10'3 (140-440)
[2019-06-07 10:22] LABS: WHITE BLOOD COUNT 0.8 X10'3 (4.5-11.0)
[2019-06-07] MEDS ORDERED: morphine 4 MG/ML inj SYRINge IV ONE ×2 (10:25→14:50)
[2019-06-07] MEDS ORDERED: iohexol 300mg/ml 100ml inj. ONE (10:50)
[2019-06-07 11:01] LABS: TOTAL CELLS COUNTED 100
[2019-06-07 11:02] LABS: PLATELET ESTIMATE DECREASED
[2019-06-07 11:03] LABS: ANISOCYTOSIS 2+; HYPOCHROMASIA 1+; TOXIC VACUOLATION 1+
--- NOTE | 2019-06-07 11:43 | NUR ---
PT GIVEN ABD PAIN
[2019-06-07] MEDS ORDERED: ONDA4TAB12 PO (12:30)
[2019-06-07] MEDS ORDERED: FURO20TA4 PO (12:30)
[2019-06-07] MEDS ORDERED: PANT40TA4 PO (12:30)
[2019-06-07] MEDS ORDERED: LACT10SO7 PO (12:30)
[2019-06-07] MEDS ORDERED: CefTRIAXone/D5W-Rocephin 1gm 50 ML IV ONE (13:15)
[2019-06-07 13:56] LABS: CLARITY,URINE CLEAR (Clear); COLOR,URINE YELLOW (Yellow); GLUCOSE, URINE NEGATIVE (Neg); KETONES,URINE NEGATIVE (Neg); LEUKOCYTE ESTERASE ,URINE NEGATIVE (Neg); NITRITES, URINE NEGATIVE (Neg); OCCULT BLOOD,URINE LARGE (Neg); PROTEIN,URINE NEGATIVE (Neg); UROBILINOGEN,URINE >=8.0 E.U/dL (0.2-1.0)
[2019-06-07 14:00] LABS: UA COLLECTION TYPE VOIDED
[2019-06-07 14:07] LABS: RBC,URINE 50-100 /HPF (0-2); WBC,URINE 0-4 /HPF (0-4)
[2019-06-07 14:08] LABS: BACTERIA,URINE NONE SEEN /HPF (Neg); MUCUS STRANDS NONE SEEN /LPF (Neg); SQUAMOUS EPITHELIAL CELL,UR FEW /LPF (FEW)
--- NOTE | 2019-06-07 14:49 | NUR ---
discussed pt's c/o pain with zafar fuentes; new orders for morphine 4mg iv received. primary rn ashwini notified.
[2019-06-07 15:14] VITALS: BP 117/73
[2019-06-07] MEDS ORDERED: CEPH250T PO (15:28)
[2019-06-07] MEDS ORDERED: HYDR-4383 PO (15:38)
[2019-06-07] MEDS ORDERED: ONDA4TAB6 PO (15:38)
== END 2019-06-07 16:11 | disposition home or self-care (01) ==
LOC: ER 07:51
DX: K70.30 Alcoholic cirrhosis of liver without ascites (principal); R17 Unspecified jaundice; R06.00 Dyspnea, unspecified; D69.6 Thrombocytopenia, unspecified; R11.2 Nausea with vomiting, unspecified; G89.29 Other chronic pain; F12.90 Cannabis use, unspecified, uncomplicated; Z98.890 Other specified postprocedural states; Z79.899 Other long term (current) drug therapy
CPT/HCPCS: 36415; 71045; 74177; 80053; 81001; 83605; 83690; 85025; 85610; 85730; 87040; 87502; 87503; 93005; 96361; 96365; 96375; 96376; 99285; J0696; J2270; J2405; J7030; Q9967

== ENCOUNTER 2019-07-05 15:39 | Emergency (ER) | payer MEDICARE, MEDICAID ==
[~2019-07-05] VITALS: Ht 185.4 cm; Wt 80.0 kg
[~2019-07-05 15:39] MED LIST changes: -DEXL60CA3 PO; -FLUC200T PO; -FOLI1TAB16 PO; -FURO-150 PO; +FURO20TA4 PO; +HYDR-4383 PO; -LACT10SO PO; +LACT10SO7 PO; -MAGN400C PO; +ONDA4TAB12 PO; -PANT-47 PO; +PANT40TA4 PO; -TOLN108P2 TP; -thiamine tablet PO
[2019-07-05 16:04] VITALS: BP 120/84
[2019-07-05 17:59] LABS: HEMATOCRIT 29.3 % (42.0-52.0); HEMOGLOBIN 9.7 g/dl (14.0-17.9); MEAN CORPUSCULAR HGB CONC 32.9 g/dL (33.0-36.5); MEAN PLATELET VOLUME 8.6 FL (7.4-10.4); PLATELET COUNT 60 X10'3 (140-440); RED BLOOD COUNT 3.34 X10'6 (4.70-6.10); RED CELL DISTRIBUTION WIDTH 21.8 % (11.5-14.5); WHITE BLOOD COUNT 1.6 X10'3 (4.5-11.0)
[2019-07-05 18:21] LABS: ALANINE AMINOTRANSFERASE 40 U/L (12-78); ALBUMIN 2.4 G/DL (3.4-5.0); ALBUMIN/GLOBULIN RATIO 0.5 (1.1-1.5); ALKALINE PHOSPHATASE 150 IU/L (46-116); ANION GAP 10 (8-16); ASPARTATE AMINO TRANSFERASE 145 U/L (10-37); BLOOD UREA NITROGEN 7 MG/DL (7-18); BUN/CREATININE RATIO 11.9 (5.4-32.0); CALCIUM 7.7 MG/DL (8.5-10.1); CHLORIDE 112 MMOL/L (99-107); CREATININE 0.59 MG/DL (0.60-1.10); GLUCOSE 90 MG/DL (70-104); POTASSIUM 3.4 MMOL/L (3.5-5.1); SODIUM 146 MMOL/L (135-145); TOTAL CARBON DIOXIDE 24.3 MMOL/L (24-32); eGFR > 90 ML/MIN
--- NOTE | 2019-07-05 18:29 | NUR ---
pt is sleepy, but wakes to voice. He is not answering my assessment questions nor will he tell me if he has any meical history. he grunts and looks annoyed when I repeat my questions. he allows me to examine his wound, check pulses, and lisen to his lungs
[2019-07-05 19:08] LABS: TOTAL CELLS COUNTED 100
[2019-07-05 19:09] LABS: PLATELET ESTIMATE DECREASED
[2019-07-05 19:10] LABS: ANISOCYTOSIS 3+; HYPOCHROMASIA 1+
[2019-07-05 19:11] LABS: TARGET CELLS FEW
[2019-07-05 19:23] LABS: ETHANOL 0.276 GM/DL (0.0-0.010)
== END 2019-07-05 19:15 | disposition home or self-care (01) ==
LOC: ER 15:43
DX: S31.105A Unspecified open wound of abdominal wall, periumbilic region without penetration into peritoneal cavity, initial encounter (principal); G89.29 Other chronic pain; F12.90 Cannabis use, unspecified, uncomplicated; Z98.890 Other specified postprocedural states; Z79.899 Other long term (current) drug therapy; X58.XXXA Exposure to other specified factors, initial encounter; Y93.89 Activity, other specified; Y92.89 Other specified places as the place of occurrence of the external cause; Y99.8 Other external cause status
CPT/HCPCS: 36415; 80053; 80320; 83605; 84145; 85025; 87040; 99283

== ENCOUNTER 2019-11-05 10:24 | Emergency (ER) | payer MEDICARE, MEDICAID ==
[~2019-11-05] VITALS: Ht 183.5 cm; Wt 81.8 kg
[2019-11-05] MEDS ORDERED: LIDOcaine 1% W/epiNEPHrine 1:200,000 10ml vial IJ ONE (10:35)
[2019-11-05] MEDS ORDERED: CEPH500C5 PO (11:49)
[2019-11-05] MEDS ORDERED: ibuprofen tablet 400 MG TABLET PO ONE (12:10)
[2019-11-05 12:34] VITALS: BP 121/84
== END 2019-11-05 12:58 | disposition home or self-care (01) ==
LOC: ER 10:25
DX: S02.85XA Fracture of orbit, unspecified, initial encounter for closed fracture (principal); S02.2XXA Fracture of nasal bones, initial encounter for closed fracture; S01.112A Laceration without foreign body of left eyelid and periocular area, initial encounter; G89.29 Other chronic pain; F12.90 Cannabis use, unspecified, uncomplicated; Z98.890 Other specified postprocedural states; Z79.2 Long term (current) use of antibiotics; Z79.899 Other long term (current) drug therapy; W51.XXXA Accidental striking against or bumped into by another person, initial encounter; Y93.89 Activity, other specified; Y92.89 Other specified places as the place of occurrence of the external cause; Y99.8 Other external cause status
CPT/HCPCS: 12011; 70450; 70486; 99285